=== PATIENT | female | born 1985 | race Caucasian/White ===

== ENCOUNTER 2016-10-11 14:01 | Inpatient (IN) | payer MEDICAID, OTHER ==
[~2016-10-11] VITALS: Ht 162.6 cm; Wt 93.0 kg
[~2016-10-11 14:01] MED LIST: DIVA500T35 PO; LEVE500T53 PO; LITH450CRT PO; OLAN5TAB2 PO; VENL-67 PO
[2016-10-11 16:13] LABS: BASOPHILS % (AUTO) 0.2 % (0.0-2.0); HEMOGLOBIN 12.8 g/dL (12.0-16.0); LYMPHOCYTES # (AUTO) 1.8 K/uL (1.0-4.8); LYMPHOCYTES % (AUTO) 18.4 % (22.0-44.0); MEAN CORPUSCULAR HEMOGLOBIN 30.8 pg (26.0-34.0); MEAN CORPUSCULAR HGB CONC 32.8 G/dL (31.0-37.0); MEAN CORPUSCULAR VOLUME 94 fL (80-100); MONOCYTES # (AUTO) 0.8 K/uL (0.1-1.0); MONOCYTES % (AUTO) 8.4 % (2.0-9.0); NEUTROPHILS # (AUTO) 7.1 K/uL (1.8-7.7); PLATELET COUNT (AUTO) 349 K/uL (150-450); RED BLOOD CELL COUNT(AUTO) 4.15 MIL/uL (4.00-5.20); RED CELL DISTRIBUTION WIDTH 12.9 % (11.5-14.5)
[2016-10-11 16:19] LABS: ANION GAP 10 mmol/L (8-16); CALCIUM, TOTAL 8.8 mg/dL (8.8-10.5); CARBON DIOXIDE 25 mmol/L (22-29); CHLORIDE 107 mmol/L (98-107); CREATININE 0.76 mg/dL (0.60-1.30); GLOMERULAR FILTR. RATE CALC > 60 mL/min (>60); POTASSIUM 3.9 mmol/L (3.5-5.1); SODIUM SERUM 142 mmol/L (136-145); UREA NITROGEN, BLOOD 10 mg/dL (7-18)
[2016-10-11 16:25] LABS: ALANINE AMINOTRANSFERASE 26 U/L (12-78); ALBUMIN 3.4 g/dL (3.4-5.0); ASPARTATE AMINOTRANSFERASE 10 U/L (15-37); BILIRUBIN,TOTAL 0.2 mg/dL (0.1-1.0); TOTAL PROTEIN, SERUM 7.4 g/dL (6.4-8.2)
[2016-10-11] MEDS ORDERED: OLANZapine 5 MG TABLET PO PRN (19:45)
[2016-10-11] MEDS ORDERED: ZOLPIDEM TARTRATE 10 MG TABLET PO PRN (19:45)
[2016-10-11 21:12] VITALS: BP 114/67
[2016-10-11] MEDS: DIVALPROEX SODIUM 500 MG DR TABLET PO SCH (22:01)
[2016-10-11] MEDS: LevETIRAcetam 500 MG TABLET PO SCH (22:01)
[2016-10-12 06:38] VITALS: BP 102/68
[2016-10-12] MEDS ORDERED: PETROLATUM,WHITE 71 GM JELLY TP PRN (08:15)
[2016-10-12] MEDS ORDERED: LOPERAMIDE HCL 2 MG CAPSULE PO PRN (08:15)
[2016-10-12] MEDS ORDERED: ACETAMINOPHEN 325 MG TABLET PO PRN (08:15)
[2016-10-12] MEDS ORDERED: MAGNESIUM HYDROXIDE SUSPENSION 30 ML UDCUP PO PRN (08:15)
[2016-10-12] MEDS ORDERED: BENZOCAINE/MENTHOL LOZENGE MM PRN (08:15)
[2016-10-12] MEDS ORDERED: MAG HYDROX/AL HYDROX/SIMETH ES 30 ML SUSPENSION UDCUP PO PRN (08:15)
[2016-10-12] MEDS ORDERED: ALBUTEROL SULFATE HFA 90 MCG/PUFF 8 GM INHALER IH PRN (08:15)
[2016-10-12] MEDS ORDERED: ONDANSETRON HCL 4 MG TABLET PO PRN (08:15)
[2016-10-12] MEDS ORDERED: CloNIDine HCL 0.1 MG TABLET PO PRN (08:15)
[2016-10-12] MEDS: VENLAFAXINE HCL 75 MG ER CAPSULE PO SCH (08:34)
[2016-10-12] MEDS: LevETIRAcetam 500 MG TABLET PO SCH ×2 (08:34→16:09)
[2016-10-12] MEDS: DIVALPROEX SODIUM 500 MG DR TABLET PO SCH ×2 (08:35→16:10)
[2016-10-12 08:40] VITALS: BP 100/68
[2016-10-12 09:43] VITALS: BP 106/73
[2016-10-12] MEDS: IBUPROFEN 600 MG TABLET PO PRN (09:43)
[2016-10-12] MEDS: LORazepam 2 MG TABLET PO PRN ×2 (10:53→15:35)
[2016-10-12] MEDS: MUPIROCIN CALCIUM 2% 15 GM CREAM TP SCH ×2 (12:52→16:10)
[2016-10-12 16:12] VITALS: BP 110/64
[2016-10-13 06:23] VITALS: BP 108/64
[2016-10-13 08:24] VITALS: BP 113/68
[2016-10-13] MEDS: MUPIROCIN CALCIUM 2% 15 GM CREAM TP SCH ×2 (08:45→16:51)
[2016-10-13] MEDS: LevETIRAcetam 500 MG TABLET PO SCH ×2 (08:45→16:41)
[2016-10-13] MEDS: DIVALPROEX SODIUM 500 MG DR TABLET PO SCH ×2 (08:45→16:41)
[2016-10-13] MEDS: VENLAFAXINE HCL 75 MG ER CAPSULE PO SCH (08:45)
[2016-10-13] MEDS: LORazepam 2 MG TABLET PO PRN (09:58)
[2016-10-13 16:14] VITALS: BP 100/68
[2016-10-13 16:40] VITALS: BP 112/70
[2016-10-13 18:29] VITALS: BP 116/75
[2016-10-13] MEDS: IBUPROFEN 600 MG TABLET PO PRN (18:31)
[2016-10-14 06:19] VITALS: BP 101/61
[2016-10-14] MEDS: DIVALPROEX SODIUM 500 MG DR TABLET PO SCH (08:30)
[2016-10-14] MEDS: MUPIROCIN CALCIUM 2% 15 GM CREAM TP SCH (08:30)
[2016-10-14] MEDS: LevETIRAcetam 500 MG TABLET PO SCH (08:30)
[2016-10-14] MEDS: VENLAFAXINE HCL 75 MG ER CAPSULE PO SCH (08:30)
[2016-10-14 08:38] VITALS: BP 103/64
[2016-10-14] MEDS ORDERED: MUPI15CR TP (10:43)
[2016-12-11] MEDS ORDERED: VENL-67 PO (19:50)
[2016-12-11] MEDS ORDERED: ARIP10TA14 PO (19:50)
== END 2016-10-14 13:32 | disposition home or self-care (01) | DRG 750 ==
LOC: EMS 14:03 → EEVIPCON 14:03 → B2S 19:54 → B3A 10-12 16:36
PROVIDERS: ADMIT Psychiatry & Neurology Child & Adolescent Psychiatry; ATTEND Psychiatry & Neurology Child & Adolescent Psychiatry
DX: F25.9 Schizoaffective disorder, unspecified (principal); G40.909 Epilepsy, unspecified, not intractable, without status epilepticus; R45.851 Suicidal ideations; E66.9 Obesity, unspecified; S51.811A Laceration without foreign body of right forearm, initial encounter; K59.00 Constipation, unspecified; F41.9 Anxiety disorder, unspecified; G47.00 Insomnia, unspecified; S61.519A Laceration without foreign body of unspecified wrist, initial encounter; X58.XXXA Exposure to other specified factors, initial encounter; S60.812A Abrasion of left wrist, initial encounter; Z98.51 Tubal ligation status; Z88.0 Allergy status to penicillin; Z68.35 Body mass index [BMI] 35.0-35.9, adult; Z79.899 Other long term (current) drug therapy; Y93.89 Activity, other specified; Y92.89 Other specified places as the place of occurrence of the external cause; Y99.8 Other external cause status
CPT/HCPCS: 99285; G0480

== ENCOUNTER 2016-10-18 08:35 | Inpatient (IN) | payer MEDICAID, OTHER ==
[~2016-10-18] VITALS: Ht 162.6 cm; Wt 92.8 kg
[~2016-10-18 08:35] MED LIST changes: -LITH450CRT PO; +MUPI15CR TP; -OLAN5TAB2 PO
[2016-10-18 09:12] LABS: BASOPHILS % (AUTO) 0.3 % (0.0-2.0); EOSINOPHILS % (AUTO) 2.8 % (1.0-6.0); HEMATOCRIT 39.1 % (36-46); HEMOGLOBIN 12.8 g/dL (12.0-16.0); LYMPHOCYTES # (AUTO) 1.2 K/uL (1.0-4.8); MEAN CORPUSCULAR HEMOGLOBIN 30.4 pg (26.0-34.0); MEAN CORPUSCULAR HGB CONC 32.7 G/dL (31.0-37.0); MEAN CORPUSCULAR VOLUME 93 fL (80-100); MONOCYTES # (AUTO) 0.7 K/uL (0.1-1.0); MONOCYTES % (AUTO) 12.3 % (2.0-9.0); NEUTROPHILS # (AUTO) 3.9 K/uL (1.8-7.7); NEUTROPHILS % (AUTO) 64.6 % (40.0-70.0); PLATELET COUNT (AUTO) 336 K/uL (150-450); RED CELL DISTRIBUTION WIDTH 12.5 % (11.5-14.5)
[2016-10-18] MEDS ORDERED: ZOLPIDEM TARTRATE 10 MG TABLET PO PRN (09:15)
[2016-10-18 09:19] LABS: ANION GAP 11 mmol/L (8-16); CARBON DIOXIDE 25 mmol/L (22-29); CHLORIDE 108 mmol/L (98-107); GLOMERULAR FILTR. RATE CALC > 60 mL/min (>60); POTASSIUM 3.9 mmol/L (3.5-5.1); SODIUM SERUM 144 mmol/L (136-145); UREA NITROGEN, BLOOD 11 mg/dL (7-18)
[2016-10-18 09:22] LABS: ALANINE AMINOTRANSFERASE 98 U/L (12-78); ALBUMIN 3.3 g/dL (3.4-5.0); ASPARTATE AMINOTRANSFERASE 39 U/L (15-37); BILIRUBIN,TOTAL 0.2 mg/dL (0.1-1.0); TOTAL PROTEIN, SERUM 7.1 g/dL (6.4-8.2); VALPROIC ACID 30 mcg/mL (50-100)
[2016-10-18 11:20] VITALS: BP 103/61
[2016-10-18] MEDS ORDERED: IBUPROFEN 600 MG TABLET PO PRN (12:15)
[2016-10-18] MEDS ORDERED: ACETAMINOPHEN 325 MG TABLET PO PRN (12:15)
[2016-10-18 12:40] VITALS: BP 110/72
[2016-10-18] MEDS: LORazepam 2 MG TABLET PO PRN (16:03)
[2016-10-18] MEDS: LevETIRAcetam 500 MG TABLET PO SCH (16:03)
[2016-10-18 16:26] VITALS: BP 122/80
[2016-10-18] MEDS: HALOPERIDOL 5 MG TABLET PO PRN (16:32)
[2016-10-18] MEDS: BACITRACIN 28.4 GM OINTMENT TP SCH (17:21)
[2016-10-19] MEDS ORDERED: MAG HYDROX/AL HYDROX/SIMETH ES 30 ML SUSPENSION UDCUP PO PRN (07:45)
[2016-10-19] MEDS ORDERED: CloNIDine HCL 0.1 MG TABLET PO PRN (07:45)
[2016-10-19] MEDS ORDERED: LOPERAMIDE HCL 2 MG CAPSULE PO PRN (07:45)
[2016-10-19] MEDS ORDERED: PETROLATUM,WHITE 71 GM JELLY TP PRN (07:45)
[2016-10-19] MEDS ORDERED: MAGNESIUM HYDROXIDE SUSPENSION 30 ML UDCUP PO PRN (07:45)
[2016-10-19] MEDS ORDERED: BENZOCAINE/MENTHOL LOZENGE MM PRN (07:45)
[2016-10-19] MEDS ORDERED: ALBUTEROL SULFATE HFA 90 MCG/PUFF 8 GM INHALER IH PRN (07:45)
[2016-10-19] MEDS ORDERED: ONDANSETRON HCL 4 MG TABLET PO PRN (07:45)
[2016-10-19 08:11] LABS: ADD UA MICROSCOPIC NO; APPEARANCE,URINE CLEAR (CLEAR); GLUCOSE, URINE (UA) NEGATIVE (NEGATIVE); KETONES,URINE NEGATIVE (NEGATIVE); LEUKOCYTE ESTERASE ,URINE NEGATIVE (NEGATIVE); OCCULT BLOOD,URINE NEGATIVE (NEGATIVE); PH,URINE 7.5 (5.0-8.0); PROTEIN,URINE NEGATIVE (NEGATIVE)
[2016-10-19 08:35] VITALS: BP 118/69
[2016-10-19] MEDS: LevETIRAcetam 500 MG TABLET PO SCH ×2 (09:44→16:31)
[2016-10-19] MEDS: BACITRACIN 28.4 GM OINTMENT TP SCH ×2 (09:44→16:45)
[2016-10-19] MEDS: HALOPERIDOL 5 MG TABLET PO PRN (09:44)
[2016-10-19] MEDS: LORazepam 2 MG TABLET PO PRN ×2 (10:45→16:31)
[2016-10-19] MEDS: VENLAFAXINE HCL 75 MG ER CAPSULE PO SCH (12:01)
[2016-10-19 16:36] VITALS: BP 113/64
[2016-10-20 03:43] VITALS: BP 110/61
[2016-10-20 08:09] VITALS: BP 116/62
[2016-10-20 08:15] LABS: THYROID STIMULATING HORMONE 0.57 uIU/mL (0.36-3.74)
[2016-10-20] MEDS: VENLAFAXINE HCL 75 MG ER CAPSULE PO SCH (09:36)
[2016-10-20] MEDS: LevETIRAcetam 500 MG TABLET PO SCH ×2 (09:36→16:18)
[2016-10-20] MEDS: ARIPiprazole 5 MG TABLET PO SCH (09:37)
[2016-10-20] MEDS: BACITRACIN 28.4 GM OINTMENT TP SCH ×2 (09:37→16:19)
[2016-10-20] MEDS: HALOPERIDOL 5 MG TABLET PO PRN (11:37)
[2016-10-20] MEDS: LORazepam 2 MG TABLET PO PRN ×2 (11:37→16:18)
[2016-10-20 16:13] VITALS: BP 102/69
[2016-10-21 08:19] VITALS: BP 106/74
[2016-10-21] MEDS: ARIPiprazole 5 MG TABLET PO SCH (08:21)
[2016-10-21] MEDS: VENLAFAXINE HCL 75 MG ER CAPSULE PO SCH (08:21)
[2016-10-21] MEDS: LevETIRAcetam 500 MG TABLET PO SCH ×2 (08:21→16:08)
[2016-10-21] MEDS: BACITRACIN 28.4 GM OINTMENT TP SCH ×2 (08:22→16:09)
[2016-10-21 16:00] VITALS: BP 112/64
[2016-10-22] MEDS: ARIPiprazole 5 MG TABLET PO SCH (08:08)
[2016-10-22] MEDS: BACITRACIN 28.4 GM OINTMENT TP SCH ×2 (08:08→16:02)
[2016-10-22] MEDS: VENLAFAXINE HCL 75 MG ER CAPSULE PO SCH (08:08)
[2016-10-22] MEDS: LevETIRAcetam 500 MG TABLET PO SCH ×2 (08:08→16:02)
[2016-10-22 08:52] VITALS: BP 108/70
[2016-10-22] MEDS: HALOPERIDOL 5 MG TABLET PO PRN (09:49)
[2016-10-22] MEDS: LORazepam 2 MG TABLET PO PRN (09:50)
[2016-10-22 16:02] VITALS: BP 93/56
[2016-10-22 16:10] VITALS: BP 107/66
[2016-10-22 19:08] VITALS: BP 100/59
[2016-10-23 01:54] VITALS: BP 113/62
[2016-10-23 05:07] LABS: HEPATITIS Bs ANTIGEN SCREEN P Negative (Negative); HEPATITIS C AB SCREEN <0.1 s/co ratio (0.0-0.9)
[2016-10-23 08:25] VITALS: BP 118/69
[2016-10-23] MEDS: LevETIRAcetam 500 MG TABLET PO SCH (08:33)
[2016-10-23] MEDS: BACITRACIN 28.4 GM OINTMENT TP SCH (08:33)
[2016-10-23] MEDS: ARIPiprazole 5 MG TABLET PO SCH (08:33)
[2016-10-23] MEDS: LORazepam 2 MG TABLET PO PRN (08:34)
[2016-10-23] MEDS: HALOPERIDOL 5 MG TABLET PO PRN (08:34)
[2016-10-23] MEDS ORDERED: VENLAFAXINE HCL 150 MG ER CAPSULE PO SCH (09:00)
[2016-10-23] MEDS ORDERED: ARIP5TAB9 PO (11:29)
[2016-12-11] MEDS ORDERED: VENL-67 PO (19:50)
[2016-12-11] MEDS ORDERED: ARIP10TA14 PO (19:50)
== END 2016-10-23 12:05 | disposition home or self-care (01) | DRG 751 ==
LOC: EMS 08:36 → EEVIPCON 08:36 → B3A 10:11
PROVIDERS: ADMIT Psychiatry & Neurology Child & Adolescent Psychiatry; ATTEND Psychiatry & Neurology Child & Adolescent Psychiatry
PROC: [UNRECOGNIZED PROCEDURE] (principal; 2016-10-20)
DX: F33.3 Major depressive disorder, recurrent, severe with psychotic symptoms (principal); R45.851 Suicidal ideations; F25.9 Schizoaffective disorder, unspecified; G40.909 Epilepsy, unspecified, not intractable, without status epilepticus; F41.9 Anxiety disorder, unspecified; S61.511A Laceration without foreign body of right wrist, initial encounter; F60.3 Borderline personality disorder; E66.9 Obesity, unspecified; G47.00 Insomnia, unspecified; R74.0 Nonspecific elevation of levels of transaminase and lactic acid dehydrogenase [LDH]; K76.9 Liver disease, unspecified; Z88.0 Allergy status to penicillin; Z79.899 Other long term (current) drug therapy; Z98.51 Tubal ligation status; Z98.890 Other specified postprocedural states; Z68.35 Body mass index [BMI] 35.0-35.9, adult; Z62.819 Personal history of unspecified abuse in childhood; Z81.8 Family history of other mental and behavioral disorders; X78.0XXA Intentional self-harm by sharp glass, initial encounter; Y93.89 Activity, other specified; Y92.89 Other specified places as the place of occurrence of the external cause; Y99.8 Other external cause status
CPT/HCPCS: 80074; 82306; 84443; 87081; 99285; G0480

== ENCOUNTER 2016-11-21 21:38 | Inpatient (IN) | payer MEDICAID, OTHER ==
[~2016-11-21] VITALS: Ht 162.6 cm; Wt 87.1 kg
[~2016-11-21 21:38] MED LIST changes: +ARIP5TAB9 PO; -DIVA500T35 PO; -MUPI15CR TP
[2016-11-21 22:00] LABS: BASOPHILS % (AUTO) 0.3 % (0.0-2.0); EOSINOPHILS % (AUTO) 4.1 % (1.0-6.0); HEMATOCRIT 41.1 % (36-46); HEMOGLOBIN 13.8 g/dL (12.0-16.0); LYMPHOCYTES # (AUTO) 2.5 K/uL (1.0-4.8); LYMPHOCYTES % (AUTO) 32.8 % (22.0-44.0); MEAN CORPUSCULAR HEMOGLOBIN 30.9 pg (26.0-34.0); MEAN CORPUSCULAR HGB CONC 33.6 G/dL (31.0-37.0); MEAN CORPUSCULAR VOLUME 92 fL (80-100); MONOCYTES # (AUTO) 0.7 K/uL (0.1-1.0); MONOCYTES % (AUTO) 9.3 % (2.0-9.0); NEUTROPHILS # (AUTO) 4.1 K/uL (1.8-7.7); NEUTROPHILS % (AUTO) 53.5 % (40.0-70.0); PLATELET COUNT (AUTO) 427 K/uL (150-450); RED BLOOD CELL COUNT(AUTO) 4.46 MIL/uL (4.00-5.20); RED CELL DISTRIBUTION WIDTH 12.1 % (11.5-14.5); WHITE BLOOD COUNT (AUTO) 7.7 K/uL (4.5-11.0)
[2016-11-21 22:16] LABS: ANION GAP 8 mmol/L (8-16); CALCIUM, TOTAL 8.9 mg/dL (8.8-10.5); CARBON DIOXIDE 26 mmol/L (22-29); CHLORIDE 104 mmol/L (98-107); CREATININE 0.93 mg/dL (0.60-1.30); GLOMERULAR FILTR. RATE CALC > 60 mL/min (>60); POTASSIUM 3.7 mmol/L (3.5-5.1); SODIUM SERUM 138 mmol/L (136-145); UREA NITROGEN, BLOOD 10 mg/dL (7-18)
[2016-11-21 22:21] LABS: ALANINE AMINOTRANSFERASE 91 U/L (12-78); ALBUMIN 3.9 g/dL (3.4-5.0); ASPARTATE AMINOTRANSFERASE 31 U/L (15-37); BILIRUBIN,TOTAL 0.2 mg/dL (0.1-1.0); TOTAL PROTEIN, SERUM 7.8 g/dL (6.4-8.2)
[2016-11-21] MEDS ORDERED: ZOLPIDEM TARTRATE 10 MG TABLET PO PRN (22:30)
[2016-11-21] MEDS ORDERED: HALOPERIDOL 5 MG TABLET PO ONE (22:30)
[2016-11-21] MEDS ORDERED: HALOPERIDOL 5 MG TABLET PO PRN (22:30)
[2016-11-21] MEDS ORDERED: LORazepam 2 MG TABLET PO ONE (22:30)
[2016-11-21 22:33] LABS: APPEARANCE,URINE CLEAR (CLEAR); GLUCOSE, URINE (UA) NEGATIVE (NEGATIVE); KETONES,URINE NEGATIVE (NEGATIVE); LEUKOCYTE ESTERASE ,URINE NEGATIVE (NEGATIVE); PROTEIN,URINE NEGATIVE (NEGATIVE)
[2016-11-21 22:36] LABS: ADD UA MICROSCOPIC YES; OCCULT BLOOD,URINE TRACE (NEGATIVE); SQUAMOUS EPITHELIAL CELL,UR Moderate /LPF (None Seen); WBC,URINE 0-2 /HPF (0-5)
[2016-11-22 06:59] LABS: CHOL/HDL RATIO 3.7 (3.9-5.7)
[2016-11-22] MEDS ORDERED: MAG HYDROX/AL HYDROX/SIMETH ES 30 ML SUSPENSION UDCUP PO PRN (09:00)
[2016-11-22] MEDS ORDERED: PETROLATUM,WHITE 71 GM JELLY TP PRN (09:00)
[2016-11-22] MEDS ORDERED: LOPERAMIDE HCL 2 MG CAPSULE PO PRN (09:00)
[2016-11-22] MEDS ORDERED: BENZOCAINE/MENTHOL LOZENGE [8 LOZENGES/PACKET] MM PRN (09:00)
[2016-11-22] MEDS ORDERED: IBUPROFEN 600 MG TABLET PO PRN (09:00)
[2016-11-22] MEDS ORDERED: CloNIDine HCL 0.1 MG TABLET PO PRN (09:00)
[2016-11-22] MEDS ORDERED: ACETAMINOPHEN 325 MG TABLET PO PRN (09:00)
[2016-11-22] MEDS ORDERED: ALBUTEROL SULFATE HFA 90 MCG/PUFF 8 GM INHALER IH PRN (09:00)
[2016-11-22] MEDS ORDERED: ONDANSETRON HCL 4 MG TABLET PO PRN (09:00)
[2016-11-22] MEDS ORDERED: MAGNESIUM HYDROXIDE SUSPENSION 30 ML UDCUP PO PRN (09:00)
[2016-11-22] MEDS ORDERED: BACITRACIN 28.4 GM OINTMENT TP PRN (09:00)
[2016-11-22] MEDS: CHOLECALCIFEROL (VIT D3) 1,000 UNITS TABLET PO SCH (09:46)
[2016-11-22] MEDS: LevETIRAcetam 500 MG TABLET PO SCH ×2 (09:47→16:23)
[2016-11-22 09:58] VITALS: BP 120/70
[2016-11-22 16:37] VITALS: BP 97/61
[2016-11-23] MEDS: LevETIRAcetam 500 MG TABLET PO SCH ×2 (09:06→17:12)
[2016-11-23] MEDS: ARIPiprazole 5 MG TABLET PO SCH (09:06)
[2016-11-23] MEDS: CHOLECALCIFEROL (VIT D3) 1,000 UNITS TABLET PO SCH (09:06)
[2016-11-23] MEDS: VENLAFAXINE HCL 150 MG ER CAPSULE PO SCH (09:06)
[2016-11-23 09:41] VITALS: BP 106/61
[2016-11-23 19:55] VITALS: BP 109/66
[2016-11-24 08:00] VITALS: BP 125/74
[2016-11-24] MEDS: LevETIRAcetam 500 MG TABLET PO SCH ×2 (08:28→16:22)
[2016-11-24] MEDS: CHOLECALCIFEROL (VIT D3) 1,000 UNITS TABLET PO SCH (08:28)
[2016-11-24] MEDS: VENLAFAXINE HCL 150 MG ER CAPSULE PO SCH (08:29)
[2016-11-24] MEDS: ARIPiprazole 5 MG TABLET PO SCH (08:29)
[2016-11-24] MEDS: LORazepam 2 MG TABLET PO PRN (16:22)
[2016-11-24 19:13] VITALS: BP 106/67
[2016-11-25 08:00] VITALS: BP 120/68
[2016-11-25] MEDS: LevETIRAcetam 500 MG TABLET PO SCH ×2 (08:57→16:52)
[2016-11-25] MEDS: ARIPiprazole 5 MG TABLET PO SCH (08:58)
[2016-11-25] MEDS: VENLAFAXINE HCL 150 MG ER CAPSULE PO SCH (08:58)
[2016-11-25] MEDS: CHOLECALCIFEROL (VIT D3) 1,000 UNITS TABLET PO SCH (08:58)
[2016-11-25] MEDS: LORazepam 2 MG TABLET PO PRN (16:52)
[2016-11-25 16:59] VITALS: BP 103/60
[2016-11-26 08:00] VITALS: BP 109/69
[2016-11-26] MEDS: VENLAFAXINE HCL 150 MG ER CAPSULE PO SCH (09:06)
[2016-11-26] MEDS: LevETIRAcetam 500 MG TABLET PO SCH (09:06)
[2016-11-26] MEDS: CHOLECALCIFEROL (VIT D3) 1,000 UNITS TABLET PO SCH (09:06)
[2016-11-26] MEDS: ARIPiprazole 5 MG TABLET PO SCH (09:06)
[2016-11-26] MEDS ORDERED: VITAD1000 PO (09:41)
[2016-12-11] MEDS ORDERED: ARIP10TA14 PO (19:50)
[2016-12-11] MEDS ORDERED: VENL-67 PO (19:50)
== END 2016-11-26 13:45 | disposition home or self-care (01) | DRG 750 ==
LOC: EMS 21:40 → 3EI 11-22 00:04
PROVIDERS: ADMIT Psychiatry & Neurology Child & Adolescent Psychiatry; ATTEND Psychiatry & Neurology Child & Adolescent Psychiatry
DX: F25.1 Schizoaffective disorder, depressive type (principal); R56.9 Unspecified convulsions; R45.851 Suicidal ideations; Z88.0 Allergy status to penicillin; E55.9 Vitamin D deficiency, unspecified; G47.00 Insomnia, unspecified; E66.9 Obesity, unspecified; K59.00 Constipation, unspecified; F12.90 Cannabis use, unspecified, uncomplicated; Z68.33 Body mass index [BMI] 33.0-33.9, adult
CPT/HCPCS: 87081; 99285; G0480; Q0162

== ENCOUNTER 2016-12-06 13:35 | Inpatient (IN) | payer MEDICAID, OTHER ==
[~2016-12-06] VITALS: Ht 160 cm; Wt 87.8 kg
[~2016-12-06 13:35] MED LIST changes: +VITAD1000 PO
[2016-12-06 14:38] LABS: BASOPHILS % (AUTO) 0.4 % (0.0-2.0); EOSINOPHILS % (AUTO) 4.1 % (1.0-6.0); HEMATOCRIT 39.1 % (36-46); HEMOGLOBIN 13.5 g/dL (12.0-16.0); LYMPHOCYTES # (AUTO) 1.4 K/uL (1.0-4.8); MEAN CORPUSCULAR HEMOGLOBIN 31.3 pg (26.0-34.0); MEAN CORPUSCULAR HGB CONC 34.4 G/dL (31.0-37.0); MEAN CORPUSCULAR VOLUME 91 fL (80-100); MONOCYTES # (AUTO) 0.6 K/uL (0.1-1.0); MONOCYTES % (AUTO) 8.5 % (2.0-9.0); NEUTROPHILS # (AUTO) 4.5 K/uL (1.8-7.7); PLATELET COUNT (AUTO) 348 K/uL (150-450); RED CELL DISTRIBUTION WIDTH 11.9 % (11.5-14.5); WHITE BLOOD COUNT (AUTO) 6.8 K/uL (4.5-11.0)
[2016-12-06 14:39] LABS: ANION GAP 7 mmol/L (8-16); CALCIUM, TOTAL 8.7 mg/dL (8.8-10.5); CARBON DIOXIDE 25 mmol/L (22-29); CHLORIDE 108 mmol/L (98-107); GLOMERULAR FILTR. RATE CALC > 60 mL/min (>60); POTASSIUM 3.6 mmol/L (3.5-5.1); SODIUM SERUM 140 mmol/L (136-145); UREA NITROGEN, BLOOD 8 mg/dL (7-18)
[2016-12-06 14:44] LABS: ALANINE AMINOTRANSFERASE 164 U/L (12-78); ALBUMIN 3.6 g/dL (3.4-5.0); ASPARTATE AMINOTRANSFERASE 39 U/L (15-37); BILIRUBIN,TOTAL 0.3 mg/dL (0.1-1.0)
[2016-12-06] MEDS ORDERED: LORazepam 2 MG TABLET PO ONE (16:30)
[2016-12-06] MEDS ORDERED: ZOLPIDEM TARTRATE 10 MG TABLET PO PRN (16:45)
[2016-12-06] MEDS: HALOPERIDOL 5 MG TABLET PO PRN (18:42)
[2016-12-06] MEDS: LevETIRAcetam 500 MG TABLET PO SCH (18:42)
[2016-12-06 18:47] VITALS: BP 118/61
[2016-12-06] MEDS: LORazepam 2 MG TABLET PO PRN (20:30)
[2016-12-07 06:35] LABS: CHOL/HDL RATIO 4.3 (3.9-5.7)
[2016-12-07 08:00] VITALS: BP 111/60
[2016-12-07] MEDS: ARIPiprazole 10 MG TABLET PO SCH (09:57)
[2016-12-07] MEDS: VENLAFAXINE HCL 75 MG ER CAPSULE PO SCH (09:57)
[2016-12-07] MEDS: LevETIRAcetam 500 MG TABLET PO SCH ×2 (09:57→16:53)
[2016-12-07] MEDS: LORazepam 2 MG TABLET PO PRN (10:29)
[2016-12-07] MEDS ORDERED: MAG HYDROX/AL HYDROX/SIMETH ES 30 ML SUSPENSION UDCUP PO PRN (14:30)
[2016-12-07] MEDS ORDERED: CloNIDine HCL 0.1 MG TABLET PO PRN (14:30)
[2016-12-07] MEDS ORDERED: ALBUTEROL SULFATE HFA 90 MCG/PUFF 8 GM INHALER IH PRN (14:30)
[2016-12-07] MEDS ORDERED: IBUPROFEN 600 MG TABLET PO PRN (14:30)
[2016-12-07] MEDS ORDERED: LOPERAMIDE HCL 2 MG CAPSULE PO PRN (14:30)
[2016-12-07] MEDS ORDERED: PETROLATUM,WHITE 71 GM JELLY TP PRN (14:30)
[2016-12-07] MEDS ORDERED: BENZOCAINE/MENTHOL LOZENGE [8 LOZENGES/PACKET] MM PRN (14:30)
[2016-12-07] MEDS ORDERED: ONDANSETRON HCL 4 MG TABLET PO PRN (14:30)
[2016-12-07] MEDS ORDERED: MAGNESIUM HYDROXIDE SUSPENSION 30 ML UDCUP PO PRN (14:30)
[2016-12-07] MEDS ORDERED: BACITRACIN 28.4 GM OINTMENT TP PRN (14:30)
[2016-12-07] MEDS ORDERED: ACETAMINOPHEN 325 MG TABLET PO PRN (14:30)
[2016-12-07] MEDS ORDERED: VENL-68 PO (14:46)
[2016-12-07 17:46] VITALS: BP 112/71
[2016-12-08 03:50] VITALS: BP 100/68
[2016-12-08 08:00] VITALS: BP 115/70
[2016-12-08] MEDS: ARIPiprazole 10 MG TABLET PO SCH (08:41)
[2016-12-08] MEDS: LevETIRAcetam 500 MG TABLET PO SCH ×2 (08:41→17:31)
[2016-12-08] MEDS: VENLAFAXINE HCL 75 MG ER CAPSULE PO SCH (08:41)
[2016-12-08] MEDS: HALOPERIDOL 5 MG TABLET PO PRN ×2 (08:41→17:32)
[2016-12-08] MEDS: CHOLECALCIFEROL (VIT D3) 1,000 UNITS TABLET PO SCH (08:41)
[2016-12-08 16:21] VITALS: BP 108/61
[2016-12-08] MEDS: LORazepam 2 MG TABLET PO PRN (17:31)
[2016-12-09 08:46] VITALS: BP 118/82
[2016-12-09] MEDS: CHOLECALCIFEROL (VIT D3) 1,000 UNITS TABLET PO SCH (09:19)
[2016-12-09] MEDS: ARIPiprazole 10 MG TABLET PO SCH (09:19)
[2016-12-09] MEDS: VENLAFAXINE HCL 75 MG ER CAPSULE PO SCH (09:19)
[2016-12-09] MEDS: LevETIRAcetam 500 MG TABLET PO SCH ×2 (09:19→17:36)
[2016-12-09] MEDS: HALOPERIDOL 5 MG TABLET PO PRN ×2 (12:45→17:36)
[2016-12-09 16:43] VITALS: BP 99/60
[2016-12-09] MEDS: LORazepam 2 MG TABLET PO PRN (17:36)
[2016-12-10 09:34] VITALS: BP 112/68
[2016-12-10] MEDS: ARIPiprazole 10 MG TABLET PO SCH (11:36)
[2016-12-10] MEDS: LevETIRAcetam 500 MG TABLET PO SCH (11:37)
[2016-12-10] MEDS: CHOLECALCIFEROL (VIT D3) 1,000 UNITS TABLET PO SCH (11:37)
[2016-12-10] MEDS: VENLAFAXINE HCL 75 MG ER CAPSULE PO SCH (11:37)
[2016-12-11] MEDS ORDERED: VENL-67 PO (19:50)
[2016-12-11] MEDS ORDERED: ARIP10TA14 PO (19:50)
== END 2016-12-10 11:50 | disposition home or self-care (01) | DRG 750 ==
LOC: EMS 13:38 → EEVIPCON 13:38 → 3EI 17:13
PROVIDERS: ADMIT Psychiatry & Neurology Psychiatry; ATTEND Psychiatry & Neurology Psychiatry
DX: F25.1 Schizoaffective disorder, depressive type (principal); E55.9 Vitamin D deficiency, unspecified; R45.851 Suicidal ideations; E66.9 Obesity, unspecified; F12.90 Cannabis use, unspecified, uncomplicated; F22 Delusional disorders; F41.9 Anxiety disorder, unspecified; S61.511A Laceration without foreign body of right wrist, initial encounter; Z62.819 Personal history of unspecified abuse in childhood; G40.909 Epilepsy, unspecified, not intractable, without status epilepticus; G47.00 Insomnia, unspecified; F60.3 Borderline personality disorder; K59.00 Constipation, unspecified; X78.8XXA Intentional self-harm by other sharp object, initial encounter; Z79.899 Other long term (current) drug therapy; Z98.890 Other specified postprocedural states; Y93.89 Activity, other specified; Y92.89 Other specified places as the place of occurrence of the external cause; Y99.8 Other external cause status; Z98.51 Tubal ligation status; Z88.0 Allergy status to penicillin; Z71.51 Drug abuse counseling and surveillance of drug abuser; Z63.8 Other specified problems related to primary support group; Z68.34 Body mass index [BMI] 34.0-34.9, adult
CPT/HCPCS: 87081; 99285; G0480

== ENCOUNTER 2016-12-24 15:40 | Emergency (ER) | payer MEDICAID, OTHER ==
[~2016-12-24] VITALS: Ht 162.6 cm; Wt 88.0 kg
[~2016-12-24 15:40] MED LIST changes: +ARIP10TA14 PO; -ARIP5TAB9 PO; -VITAD1000 PO
[2016-12-24] MEDS ORDERED: ARIP15TA3 PO (17:24)
[2016-12-24] MEDS ORDERED: LORazepam 1 MG TABLET PO ONE (17:30)
[2016-12-24 17:47] LABS: BASOPHILS % (AUTO) 0.3 % (0.0-2.0); EOSINOPHILS % (AUTO) 4.5 % (1.0-6.0); HEMATOCRIT 37.3 % (36-46); HEMOGLOBIN 12.8 g/dL (12.0-16.0); LYMPHOCYTES % (AUTO) 27.1 % (22.0-44.0); MEAN CORPUSCULAR HEMOGLOBIN 30.9 pg (26.0-34.0); MEAN CORPUSCULAR HGB CONC 34.4 G/dL (31.0-37.0); MEAN CORPUSCULAR VOLUME 90 fL (80-100); MONOCYTES # (AUTO) 0.8 K/uL (0.1-1.0); MONOCYTES % (AUTO) 10.6 % (2.0-9.0); NEUTROPHILS # (AUTO) 4.1 K/uL (1.8-7.7); NEUTROPHILS % (AUTO) 57.5 % (40.0-70.0); PLATELET COUNT (AUTO) 384 K/uL (150-450); RED BLOOD CELL COUNT(AUTO) 4.16 MIL/uL (4.00-5.20); RED CELL DISTRIBUTION WIDTH 12.1 % (11.5-14.5); WHITE BLOOD COUNT (AUTO) 7.2 K/uL (4.5-11.0)
[2016-12-24 17:48] LABS: ANION GAP 9 mmol/L (8-16); CALCIUM, TOTAL 8.5 mg/dL (8.8-10.5); CARBON DIOXIDE 25 mmol/L (22-29); CHLORIDE 109 mmol/L (98-107); CREATININE 0.82 mg/dL (0.60-1.30); GLOMERULAR FILTR. RATE CALC > 60 mL/min (>60); POTASSIUM 3.8 mmol/L (3.5-5.1); SODIUM SERUM 143 mmol/L (136-145); UREA NITROGEN, BLOOD 9 mg/dL (7-18)
[2016-12-24 17:54] LABS: ALANINE AMINOTRANSFERASE 268 U/L (12-78); ALBUMIN 3.3 g/dL (3.4-5.0); ASPARTATE AMINOTRANSFERASE 86 U/L (15-37); BILIRUBIN,TOTAL 0.2 mg/dL (0.1-1.0); TOTAL PROTEIN, SERUM 6.6 g/dL (6.4-8.2)
[2016-12-24 22:19] VITALS: BP 115/68
[2016-12-25] MEDS ORDERED: OLAN7.5T2 PO (17:42)
== END 2016-12-24 22:32 | disposition home or self-care (01) ==
LOC: EMS 15:41
DX: R45.851 Suicidal ideations (principal); F31.9 Bipolar disorder, unspecified; F25.9 Schizoaffective disorder, unspecified; Z79.899 Other long term (current) drug therapy; Z88.0 Allergy status to penicillin
CPT/HCPCS: 99284

== ENCOUNTER 2016-12-25 17:29 | Emergency (ER) | payer OTHER ==
[~2016-12-25] VITALS: Ht 162.6 cm; Wt 87.3 kg
[~2016-12-25 17:29] MED LIST changes: -ARIP10TA14 PO; +ARIP15TA3 PO
[2016-12-25] MEDS ORDERED: OLAN7.5T2 PO (17:42)
[2016-12-25 18:05] LABS: BASOPHILS % (AUTO) 0.1 % (0.0-2.0); EOSINOPHILS % (AUTO) 3.7 % (1.0-6.0); HEMATOCRIT 38.7 % (36-46); HEMOGLOBIN 13.2 g/dL (12.0-16.0); LYMPHOCYTES # (AUTO) 1.8 K/uL (1.0-4.8); LYMPHOCYTES % (AUTO) 24.6 % (22.0-44.0); MEAN CORPUSCULAR HEMOGLOBIN 30.7 pg (26.0-34.0); MEAN CORPUSCULAR HGB CONC 34.1 G/dL (31.0-37.0); MEAN CORPUSCULAR VOLUME 90 fL (80-100); MONOCYTES # (AUTO) 0.8 K/uL (0.1-1.0); MONOCYTES % (AUTO) 10.5 % (2.0-9.0); NEUTROPHILS # (AUTO) 4.5 K/uL (1.8-7.7); NEUTROPHILS % (AUTO) 61.1 % (40.0-70.0); PLATELET COUNT (AUTO) 415 K/uL (150-450); RED CELL DISTRIBUTION WIDTH 12.1 % (11.5-14.5); WHITE BLOOD COUNT (AUTO) 7.4 K/uL (4.5-11.0)
[2016-12-25 18:18] LABS: SALICYLATE < 2.8 mg/dL (2.8-20.0)
[2016-12-25 18:22] LABS: ANION GAP 9 mmol/L (8-16); CALCIUM, TOTAL 8.9 mg/dL (8.8-10.5); CARBON DIOXIDE 24 mmol/L (22-29); CHLORIDE 109 mmol/L (98-107); CREATININE 0.83 mg/dL (0.60-1.30); GLOMERULAR FILTR. RATE CALC > 60 mL/min (>60); POTASSIUM 3.8 mmol/L (3.5-5.1); SODIUM SERUM 142 mmol/L (136-145); UREA NITROGEN, BLOOD 7 mg/dL (7-18)
[2016-12-25 18:26] LABS: ALANINE AMINOTRANSFERASE 252 U/L (12-78); ALBUMIN 3.3 g/dL (3.4-5.0); ASPARTATE AMINOTRANSFERASE 79 U/L (15-37); BILIRUBIN,TOTAL 0.2 mg/dL (0.1-1.0); TOTAL PROTEIN, SERUM 6.9 g/dL (6.4-8.2)
[2016-12-25 18:27] LABS: ACETAMINOPHEN < 2 mcg/mL (10-30)
[2016-12-25] MEDS ORDERED: SODIUM CHLORIDE 0.9% 1,000 ML IV ONE (21:15)
[2016-12-25 22:29] LABS: ACETAMINOPHEN < 2 mcg/mL (10-30); SALICYLATE < 2.8 mg/dL (2.8-20.0)
[2016-12-26] MEDS ORDERED: SODIUM CHLORIDE 0.9% 1,000 ML IV ONE (00:15)
[2016-12-26 01:18] VITALS: BP 105/62
== END 2016-12-26 01:21 | disposition home or self-care (01) ==
LOC: EMS 17:31
DX: T43.592A Poisoning by other antipsychotics and neuroleptics, intentional self-harm, initial encounter (principal); T42.6X2A Poisoning by other antiepileptic and sedative-hypnotic drugs, intentional self-harm, initial encounter; F31.9 Bipolar disorder, unspecified; F20.9 Schizophrenia, unspecified; Z88.0 Allergy status to penicillin; Y92.89 Other specified places as the place of occurrence of the external cause
CPT/HCPCS: 36415; 80053; 80307; 84703; 85025; 93005; 96360; 96361; 99285; G0480; G0482; J7030 ×2; G0481

== ENCOUNTER 2017-01-13 17:53 | Emergency (ER) | payer MEDICAID, OTHER ==
[~2017-01-13] VITALS: Ht 162.6 cm; Wt 75.0 kg
[~2017-01-13 17:53] MED LIST changes: +OMEG100019 PO
[2017-01-13 18:33] LABS: BASOPHILS % (AUTO) 0.2 % (0.0-2.0); EOSINOPHILS % (AUTO) 4.4 % (1.0-6.0); HEMATOCRIT 37.3 % (36-46); HEMOGLOBIN 12.7 g/dL (12.0-16.0); LYMPHOCYTES # (AUTO) 2.2 K/uL (1.0-4.8); LYMPHOCYTES % (AUTO) 25.4 % (22.0-44.0); MEAN CORPUSCULAR HEMOGLOBIN 30.5 pg (26.0-34.0); MEAN CORPUSCULAR HGB CONC 34.2 G/dL (31.0-37.0); MEAN CORPUSCULAR VOLUME 89 fL (80-100); MONOCYTES # (AUTO) 0.8 K/uL (0.1-1.0); MONOCYTES % (AUTO) 9.2 % (2.0-9.0); NEUTROPHILS # (AUTO) 5.3 K/uL (1.8-7.7); NEUTROPHILS % (AUTO) 60.8 % (40.0-70.0); PLATELET COUNT (AUTO) 398 K/uL (150-450); RED BLOOD CELL COUNT(AUTO) 4.18 MIL/uL (4.00-5.20); RED CELL DISTRIBUTION WIDTH 12.5 % (11.5-14.5); WHITE BLOOD COUNT (AUTO) 8.7 K/uL (4.5-11.0)
[2017-01-13 18:41] LABS: ANION GAP 8 mmol/L (8-16); CALCIUM, TOTAL 9.2 mg/dL (8.8-10.5); CARBON DIOXIDE 29 mmol/L (22-29); CHLORIDE 104 mmol/L (98-107); GLOMERULAR FILTR. RATE CALC > 60 mL/min (>60); POTASSIUM 3.9 mmol/L (3.5-5.1); SODIUM SERUM 141 mmol/L (136-145); UREA NITROGEN, BLOOD 12 mg/dL (7-18)
[2017-01-13 18:47] LABS: ALANINE AMINOTRANSFERASE 136 U/L (12-78); ALBUMIN 3.4 g/dL (3.4-5.0); ASPARTATE AMINOTRANSFERASE 46 U/L (15-37); BILIRUBIN,TOTAL 0.3 mg/dL (0.1-1.0); TOTAL PROTEIN, SERUM 7.6 g/dL (6.4-8.2)
[2017-01-13] MEDS ORDERED: HALOPERIDOL 5 MG TABLET PO ONE (19:15)
[2017-01-13 19:41] VITALS: BP 115/73
== END 2017-01-13 19:43 | disposition home or self-care (01) ==
LOC: EMS 17:54
DX: S91.011A Laceration without foreign body, right ankle, initial encounter (principal); F25.9 Schizoaffective disorder, unspecified; F31.9 Bipolar disorder, unspecified; Z88.0 Allergy status to penicillin; Z98.890 Other specified postprocedural states; W10.9XXA Fall (on) (from) unspecified stairs and steps, initial encounter; Y93.89 Activity, other specified; Y92.89 Other specified places as the place of occurrence of the external cause; Y99.9 Unspecified external cause status
CPT/HCPCS: 36415; 80053; 80307; 85025; 99284; G0480

== ENCOUNTER 2017-02-05 18:55 | Emergency (ER) | payer MEDICAID, OTHER ==
[~2017-02-05] VITALS: Ht 162.6 cm; Wt 80.0 kg
[~2017-02-05 18:55] MED LIST changes: +MUPI1OIN4 NS
[2017-02-05 19:26] LABS: BASOPHILS % (AUTO) 0.4 % (0.0-2.0); EOSINOPHILS % (AUTO) 5.2 % (1.0-6.0); HEMATOCRIT 38.4 % (36-46); HEMOGLOBIN 13.1 g/dL (12.0-16.0); LYMPHOCYTES # (AUTO) 2.2 K/uL (1.0-4.8); MEAN CORPUSCULAR HEMOGLOBIN 30.2 pg (26.0-34.0); MEAN CORPUSCULAR VOLUME 89 fL (80-100); MONOCYTES # (AUTO) 0.8 K/uL (0.1-1.0); MONOCYTES % (AUTO) 9.3 % (2.0-9.0); NEUTROPHILS # (AUTO) 5.3 K/uL (1.8-7.7); NEUTROPHILS % (AUTO) 60.1 % (40.0-70.0); PLATELET COUNT (AUTO) 387 K/uL (150-450); RED BLOOD CELL COUNT(AUTO) 4.32 MIL/uL (4.00-5.20); RED CELL DISTRIBUTION WIDTH 12.6 % (11.5-14.5); WHITE BLOOD COUNT (AUTO) 8.9 K/uL (4.5-11.0)
[2017-02-05 19:34] LABS: ANION GAP 11 mmol/L (8-16); CARBON DIOXIDE 24 mmol/L (22-29); CHLORIDE 104 mmol/L (98-107); CREATININE 0.89 mg/dL (0.60-1.30); GLOMERULAR FILTR. RATE CALC > 60 mL/min (>60); POTASSIUM 3.8 mmol/L (3.5-5.1); SODIUM SERUM 139 mmol/L (136-145); UREA NITROGEN, BLOOD 12 mg/dL (7-18)
[2017-02-05 19:41] LABS: ALANINE AMINOTRANSFERASE 103 U/L (12-78); ALBUMIN 3.6 g/dL (3.4-5.0); ASPARTATE AMINOTRANSFERASE 36 U/L (15-37); BILIRUBIN,TOTAL 0.2 mg/dL (0.1-1.0); TOTAL PROTEIN, SERUM 7.5 g/dL (6.4-8.2)
[2017-02-05] MEDS ORDERED: ACETAMINOPHEN 500 MG TABLET PO ONE (21:30)
[2017-02-05] MEDS ORDERED: PERTUSS(ACELL),DIPH,TET VAC/PF 0.5 ML VIAL IM ONE (21:30)
[2017-02-05] MEDS ORDERED: BACITRACIN 0.9 GM PACKET OINTMENT TP ONE (21:30)
[2017-02-05 21:34] VITALS: BP 100/64
== END 2017-02-05 21:58 | disposition home or self-care (01) ==
LOC: EMS 18:58
DX: S61.511A Laceration without foreign body of right wrist, initial encounter (principal); R45.851 Suicidal ideations; F31.9 Bipolar disorder, unspecified; F20.9 Schizophrenia, unspecified; Z88.0 Allergy status to penicillin; X78.9XXA Intentional self-harm by unspecified sharp object, initial encounter; Y93.89 Activity, other specified; Y92.89 Other specified places as the place of occurrence of the external cause; Y99.8 Other external cause status
CPT/HCPCS: 36415; 80053; 80307; 85025; 90471; 90715; 99285; G0480

== ENCOUNTER 2017-02-12 19:32 | Emergency (ER) | payer OTHER ==
[~2017-02-12] VITALS: Ht 162.6 cm; Wt 80.0 kg
[2017-02-12 20:14] LABS: BASOPHILS # (AUTO) 0.04 K/uL (0.00-0.20); BASOPHILS % (AUTO) 0.4 % (0.0-2.0); EOSINOPHILS # (AUTO) 0.34 K/uL (0.00-0.70); HEMATOCRIT 39.2 % (36-46); HEMOGLOBIN 13.2 g/dL (12.0-16.0); LYMPHOCYTES # (AUTO) 2.2 K/uL (1.0-4.8); LYMPHOCYTES % (AUTO) 20.5 % (22.0-44.0); MEAN CORPUSCULAR HGB CONC 33.8 G/dL (31.0-37.0); MEAN CORPUSCULAR VOLUME 89 fL (80-100); MONOCYTES # (AUTO) 0.8 K/uL (0.1-1.0); MONOCYTES % (AUTO) 7.6 % (2.0-9.0); NEUTROPHILS # (AUTO) 7.3 K/uL (1.8-7.7); NEUTROPHILS % (AUTO) 68.4 % (40.0-70.0); PLATELET COUNT (AUTO) 393 K/uL (150-450); RED BLOOD CELL COUNT(AUTO) 4.41 MIL/uL (4.00-5.20); RED CELL DISTRIBUTION WIDTH 12.6 % (11.5-14.5); WHITE BLOOD COUNT (AUTO) 10.7 K/uL (4.5-11.0)
[2017-02-12 20:22] LABS: ANION GAP 9 mmol/L (8-16); CALCIUM, TOTAL 8.8 mg/dL (8.8-10.5); CARBON DIOXIDE 25 mmol/L (22-29); CHLORIDE 106 mmol/L (98-107); CREATININE 0.82 mg/dL (0.60-1.30); GLOMERULAR FILTR. RATE CALC > 60 mL/min (>60); POTASSIUM 3.6 mmol/L (3.5-5.1); SODIUM SERUM 140 mmol/L (136-145); UREA NITROGEN, BLOOD 14 mg/dL (7-18)
[2017-02-12 20:29] LABS: ALANINE AMINOTRANSFERASE 85 U/L (12-78); ALBUMIN 3.7 g/dL (3.4-5.0); ASPARTATE AMINOTRANSFERASE 26 U/L (15-37); BILIRUBIN,TOTAL 0.2 mg/dL (0.1-1.0); TOTAL PROTEIN, SERUM 7.6 g/dL (6.4-8.2)
[2017-02-12] MEDS ORDERED: ACETAMINOPHEN 500 MG TABLET PO ONE (21:15)
[2017-02-12] MEDS ORDERED: BACITRACIN 0.9 GM PACKET OINTMENT TP ONE (21:15)
[2017-02-12 21:52] VITALS: BP 126/89
[2017-02-12] MEDS ORDERED: LORazepam 2 MG TABLET PO ONE (22:00)
[2017-02-12] MEDS ORDERED: HALOPERIDOL 5 MG TABLET PO ONE (22:00)
== END 2017-02-12 22:17 | disposition home or self-care (01) ==
LOC: EMS 19:35
DX: F31.9 Bipolar disorder, unspecified (principal); R45.851 Suicidal ideations; S61.511A Laceration without foreign body of right wrist, initial encounter; F20.9 Schizophrenia, unspecified; F41.9 Anxiety disorder, unspecified; Z88.0 Allergy status to penicillin; X78.0XXA Intentional self-harm by sharp glass, initial encounter; Y93.89 Activity, other specified; Y92.89 Other specified places as the place of occurrence of the external cause; Y99.8 Other external cause status
CPT/HCPCS: 36415; 80053; 80307; 84703; 85025; 99285; G0480; G0482

== ENCOUNTER 2017-03-14 17:09 | Inpatient (IN) | payer MEDICAID, OTHER ==
[~2017-03-14] VITALS: Ht 162.6 cm; Wt 88.5 kg
[~2017-03-14 17:09] MED LIST changes: +ARIP15TA2 PO; -ARIP15TA3 PO; -MUPI1OIN4 NS; +OMEG-135 PO; -OMEG100019 PO
[2017-03-14 19:07] LABS: BASOPHILS % (AUTO) 0.1 % (0.0-2.0); EOSINOPHILS % (AUTO) 3.6 % (1.0-6.0); HEMATOCRIT 38.8 % (36-46); HEMOGLOBIN 13.5 g/dL (12.0-16.0); LYMPHOCYTES % (AUTO) 24.2 % (22.0-44.0); MEAN CORPUSCULAR HEMOGLOBIN 30.8 pg (26.0-34.0); MEAN CORPUSCULAR HGB CONC 34.8 G/dL (31.0-37.0); MEAN CORPUSCULAR VOLUME 89 fL (80-100); MONOCYTES # (AUTO) 0.7 K/uL (0.1-1.0); MONOCYTES % (AUTO) 8.2 % (2.0-9.0); NEUTROPHILS # (AUTO) 5.3 K/uL (1.8-7.7); NEUTROPHILS % (AUTO) 63.9 % (40.0-70.0); PLATELET COUNT (AUTO) 370 K/uL (150-450); RED BLOOD CELL COUNT(AUTO) 4.38 MIL/uL (4.00-5.20); RED CELL DISTRIBUTION WIDTH 12.5 % (11.5-14.5); WHITE BLOOD COUNT (AUTO) 8.4 K/uL (4.5-11.0)
[2017-03-14] MEDS ORDERED: ZOLPIDEM TARTRATE 10 MG TABLET PO PRN (19:15)
[2017-03-14 19:21] LABS: ANION GAP 9 mmol/L (8-16); CARBON DIOXIDE 27 mmol/L (22-29); CHLORIDE 105 mmol/L (98-107); CREATININE 0.89 mg/dL (0.60-1.30); GLOMERULAR FILTR. RATE CALC > 60 mL/min (>60); POTASSIUM 3.8 mmol/L (3.5-5.1); SODIUM SERUM 141 mmol/L (136-145); UREA NITROGEN, BLOOD 9 mg/dL (7-18)
[2017-03-14 19:21] LABS: APPEARANCE,URINE CLEAR (CLEAR); GLUCOSE, URINE (UA) NEGATIVE (NEGATIVE); KETONES,URINE NEGATIVE (NEGATIVE); LEUKOCYTE ESTERASE ,URINE NEGATIVE (NEGATIVE); OCCULT BLOOD,URINE NEGATIVE (NEGATIVE); PROTEIN,URINE NEGATIVE (NEGATIVE)
[2017-03-14 19:22] LABS: ADD UA MICROSCOPIC NO
[2017-03-14 19:29] LABS: ALANINE AMINOTRANSFERASE 58 U/L (12-78); ALBUMIN 3.6 g/dL (3.4-5.0); ASPARTATE AMINOTRANSFERASE 20 U/L (15-37); CHOL/HDL RATIO 3.9 (3.9-5.7); TOTAL PROTEIN, SERUM 7.5 g/dL (6.4-8.2)
[2017-03-14 19:49] LABS: BILIRUBIN,TOTAL 0.1 mg/dL (0.1-1.0)
[2017-03-14 20:59] VITALS: BP 110/63
[2017-03-15] MEDS ORDERED: MAGNESIUM HYDROXIDE SUSPENSION 30 ML UDCUP PO PRN (06:45)
[2017-03-15] MEDS ORDERED: BACITRACIN 28.4 GM OINTMENT TP PRN (06:45)
[2017-03-15] MEDS ORDERED: ACETAMINOPHEN 325 MG TABLET PO PRN (06:45)
[2017-03-15] MEDS ORDERED: IBUPROFEN 600 MG TABLET PO PRN (06:45)
[2017-03-15] MEDS ORDERED: LOPERAMIDE HCL 2 MG CAPSULE PO PRN (06:45)
[2017-03-15] MEDS ORDERED: MAG HYDROX/AL HYDROX/SIMETH ES 30 ML SUSPENSION UDCUP PO PRN (06:45)
[2017-03-15] MEDS ORDERED: ALBUTEROL SULFATE HFA 90 MCG/PUFF 8 GM INHALER IH PRN (06:45)
[2017-03-15] MEDS ORDERED: CloNIDine HCL 0.1 MG TABLET PO PRN (06:45)
[2017-03-15] MEDS ORDERED: ONDANSETRON HCL 4 MG TABLET PO PRN (06:45)
[2017-03-15] MEDS ORDERED: PETROLATUM,WHITE 71 GM JELLY TP PRN (06:45)
[2017-03-15] MEDS ORDERED: BENZOCAINE/MENTHOL LOZENGE [8 LOZENGES/PACKET] MM PRN (07:00)
[2017-03-15 08:30] VITALS: BP 124/84
[2017-03-15] MEDS: OMEGA-3/DHA/EPA/FISH OIL 500 MG CAPSULE PO SCH (09:59)
[2017-03-15] MEDS: LevETIRAcetam 500 MG TABLET PO SCH ×2 (09:59→16:36)
[2017-03-15] MEDS: CHOLECALCIFEROL (VIT D3) 1,000 UNITS TABLET PO SCH (09:59)
[2017-03-15 16:58] VITALS: BP 105/67
[2017-03-16 08:47] VITALS: BP 105/60
[2017-03-16] MEDS: LevETIRAcetam 500 MG TABLET PO SCH ×2 (10:24→16:39)
[2017-03-16] MEDS: ARIPiprazole 15 MG TABLET PO SCH (10:25)
[2017-03-16] MEDS: OMEGA-3/DHA/EPA/FISH OIL 500 MG CAPSULE PO SCH (10:25)
[2017-03-16] MEDS: VENLAFAXINE HCL 75 MG ER CAPSULE PO SCH (10:25)
[2017-03-16] MEDS: CHOLECALCIFEROL (VIT D3) 1,000 UNITS TABLET PO SCH (10:25)
[2017-03-16] MEDS: LORazepam 2 MG TABLET PO PRN (14:19)
[2017-03-16 16:30] VITALS: BP 126/78
[2017-03-16] MEDS: HALOPERIDOL 5 MG TABLET PO PRN (16:39)
[2017-03-17 08:15] VITALS: BP 122/67
[2017-03-17] MEDS: VENLAFAXINE HCL 75 MG ER CAPSULE PO SCH (08:45)
[2017-03-17] MEDS: LevETIRAcetam 500 MG TABLET PO SCH ×2 (08:45→16:13)
[2017-03-17] MEDS: CHOLECALCIFEROL (VIT D3) 1,000 UNITS TABLET PO SCH (08:45)
[2017-03-17] MEDS: ARIPiprazole 15 MG TABLET PO SCH (08:45)
[2017-03-17] MEDS: OMEGA-3/DHA/EPA/FISH OIL 500 MG CAPSULE PO SCH (08:46)
[2017-03-17] MEDS: LORazepam 2 MG TABLET PO PRN ×2 (12:26→16:27)
[2017-03-17 16:54] VITALS: BP 129/77
[2017-03-17] MEDS: HALOPERIDOL 5 MG TABLET PO PRN (17:03)
[2017-03-18 08:58] VITALS: BP 129/72
[2017-03-18] MEDS: ARIPiprazole 15 MG TABLET PO SCH (10:01)
[2017-03-18] MEDS: VENLAFAXINE HCL 75 MG ER CAPSULE PO SCH (10:01)
[2017-03-18] MEDS: LevETIRAcetam 500 MG TABLET PO SCH ×2 (10:02→15:59)
[2017-03-18] MEDS: CHOLECALCIFEROL (VIT D3) 1,000 UNITS TABLET PO SCH (10:02)
[2017-03-18] MEDS: OMEGA-3/DHA/EPA/FISH OIL 500 MG CAPSULE PO SCH (10:02)
[2017-03-18] MEDS: LORazepam 2 MG TABLET PO PRN (15:59)
[2017-03-18] MEDS: HALOPERIDOL 5 MG TABLET PO PRN (15:59)
[2017-03-18 16:00] VITALS: BP 110/76
[2017-03-19] MEDS: OMEGA-3/DHA/EPA/FISH OIL 500 MG CAPSULE PO SCH (07:58)
[2017-03-19] MEDS: ARIPiprazole 15 MG TABLET PO SCH (07:58)
[2017-03-19] MEDS: VENLAFAXINE HCL 75 MG ER CAPSULE PO SCH (07:59)
[2017-03-19] MEDS: LevETIRAcetam 500 MG TABLET PO SCH (07:59)
[2017-03-19] MEDS: CHOLECALCIFEROL (VIT D3) 1,000 UNITS TABLET PO SCH (07:59)
[2017-03-19 08:09] VITALS: BP 123/68
[2017-03-19] MEDS ORDERED: VITAD1000 PO (10:25)
== END 2017-03-19 11:30 | disposition home or self-care (01) | DRG 750 ==
LOC: EMS 17:11 → 3EI 19:23 → 3EC 03-18 16:30
PROVIDERS: ADMIT Psychiatry & Neurology Child & Adolescent Psychiatry; ATTEND Psychiatry & Neurology Child & Adolescent Psychiatry
DX: F25.1 Schizoaffective disorder, depressive type (principal); G40.909 Epilepsy, unspecified, not intractable, without status epilepticus; R45.851 Suicidal ideations; E55.9 Vitamin D deficiency, unspecified; E66.9 Obesity, unspecified; E78.5 Hyperlipidemia, unspecified; F12.90 Cannabis use, unspecified, uncomplicated; G47.00 Insomnia, unspecified; K59.00 Constipation, unspecified; S61.519A Laceration without foreign body of unspecified wrist, initial encounter; Z91.5 Personal history of self-harm; Z98.51 Tubal ligation status; Z88.0 Allergy status to penicillin
CPT/HCPCS: 87081; 99285; G0480

== ENCOUNTER 2017-04-15 11:57 | Inpatient (IN) | payer MEDICAID, OTHER ==
[~2017-04-15] VITALS: Ht 162.6 cm; Wt 88.5 kg
[~2017-04-15 11:57] MED LIST changes: +VITAD1000 PO
[2017-04-15 14:23] LABS: BASOPHILS # (AUTO) 0.02 K/uL (0.00-0.20); BASOPHILS % (AUTO) 0.3 % (0.0-2.0); EOSINOPHILS # (AUTO) 0.12 K/uL (0.00-0.70); EOSINOPHILS % (AUTO) 1.74 % (1.0-6.0); HEMATOCRIT 40.3 % (36-46); HEMOGLOBIN 13.8 g/dL (12.0-16.0); LYMPHOCYTES # (AUTO) 1.7 K/uL (1.0-4.8); MEAN CORPUSCULAR HEMOGLOBIN 30.1 pg (26.0-34.0); MEAN CORPUSCULAR HGB CONC 34.3 G/dL (31.0-37.0); MEAN CORPUSCULAR VOLUME 88 fL (80-100); MONOCYTES # (AUTO) 0.5 K/uL (0.1-1.0); MONOCYTES % (AUTO) 7.7 % (2.0-9.0); NEUTROPHILS # (AUTO) 4.3 K/uL (1.8-7.7); NEUTROPHILS % (AUTO) 64.3 % (40.0-70.0); PLATELET COUNT (AUTO) 346 K/uL (150-450); RED CELL DISTRIBUTION WIDTH 12.4 % (11.5-14.5)
[2017-04-15 14:32] LABS: AMPHET/METH SCREEN,URINE NEGATIVE (NEGATIVE); BARBITURATE SCREEN, URINE NEGATIVE (NEGATIVE); BENZODIAZEPINES SCREEN,URINE NEGATIVE (NEGATIVE); CANNABINOID SCREEN,URINE NEGATIVE (NEGATIVE); COCAINE SCREEN,URINE NEGATIVE (NEGATIVE); METHADONE SCREEN, URINE NEGATIVE (NEGATIVE); OPIATE SCREEN,URINE NEGATIVE (NEGATIVE)
[2017-04-15 14:33] LABS: ANION GAP 10 mmol/L (8-16); CARBON DIOXIDE 26 mmol/L (22-29); CHLORIDE 105 mmol/L (98-107); CREATININE 0.73 mg/dL (0.60-1.30); GLOMERULAR FILTR. RATE CALC > 60 mL/min (>60); GLUCOSE,RANDOM 92 mg/dL (70-110); POTASSIUM 3.9 mmol/L (3.5-5.1); SODIUM SERUM 141 mmol/L (136-145); UREA NITROGEN, BLOOD 10 mg/dL (7-18)
[2017-04-15 14:33] LABS: PHENCYCLIDINE SCREEN,URINE NEGATIVE (NEGATIVE)
[2017-04-15 14:38] LABS: ALANINE AMINOTRANSFERASE 54 U/L (12-78); ALBUMIN 3.8 g/dL (3.4-5.0); ALKALINE PHOSPHATASE 78 U/L (46-116); ASPARTATE AMINOTRANSFERASE 26 U/L (15-37); BILIRUBIN,TOTAL 0.3 mg/dL (0.1-1.0); TOTAL PROTEIN, SERUM 7.8 g/dL (6.4-8.2)
[2017-04-15] MEDS ORDERED: PNEUMOCOCCAL VACCINE POLYVALENT 0.5 ML VIAL [PPSV23] IM ONE (15:45)
[2017-04-15] MEDS ORDERED: PROMETHAZINE HCL 25 MG TABLET PO PRN (16:30)
[2017-04-15] MEDS ORDERED: GuaiFENesin/D-METHORPHAN [SUGAR-FREE] 200-20MG/10 ML SYRUP UDCUP PO PRN (16:30)
[2017-04-15] MEDS ORDERED: MAG HYDROX/AL HYDROX/SIMETH ES 30 ML SUSPENSION UDCUP PO PRN (16:30)
[2017-04-15] MEDS ORDERED: LOPERAMIDE HCL 2 MG CAPSULE PO PRN (16:30)
[2017-04-15] MEDS ORDERED: ACETAMINOPHEN 325 MG TABLET PO PRN (16:30)
[2017-04-15] MEDS ORDERED: MAGNESIUM HYDROXIDE SUSPENSION 30 ML UDCUP PO PRN (16:30)
[2017-04-15] MEDS ORDERED: TUBERCULIN, PURIFIED PROTEIN DERIVATIVE 5 TU/0.1 ML SYG ID ONE (16:30)
[2017-04-15] MEDS ORDERED: HydrOXYzine PAMOATE 50 MG CAPSULE PO PRN (16:30)
[2017-04-15 16:42] VITALS: BP 127/81
[2017-04-15 19:08] VITALS: BP 100/59
[2017-04-15] MEDS: THIAMINE HCL 100 MG TABLET PO SCH (21:00)
[2017-04-15] MEDS: LevETIRAcetam 500 MG TABLET PO SCH (21:00)
[2017-04-16 03:47] VITALS: BP 101/65
[2017-04-16 03:48] VITALS: BP 101/71
[2017-04-16 07:04] LABS: CHOL/HDL RATIO 3.8 (3.9-5.7)
[2017-04-16 09:38] VITALS: BP 96/52
[2017-04-16] MEDS: VENLAFAXINE HCL 75 MG ER CAPSULE PO SCH (09:48)
[2017-04-16] MEDS: ARIPiprazole 15 MG TABLET PO SCH (09:48)
[2017-04-16] MEDS: LevETIRAcetam 500 MG TABLET PO SCH ×2 (09:49→17:00)
[2017-04-16] MEDS: THIAMINE HCL 100 MG TABLET PO SCH ×2 (09:49→17:00)
[2017-04-16] MEDS: FOLIC ACID 1 MG TABLET PO SCH (09:49)
[2017-04-16] MEDS: MULTIVITAMINS WITH MINERALS, THERAPEUTIC TABLET PO SCH (09:49)
[2017-04-16 16:09] VITALS: BP 122/75
[2017-04-16] MEDS: LORazepam 2 MG TABLET PO PRN (17:30)
[2017-04-17 03:20] VITALS: BP 104/61
[2017-04-17] MEDS: MULTIVITAMINS WITH MINERALS, THERAPEUTIC TABLET PO SCH (09:26)
[2017-04-17] MEDS: FOLIC ACID 1 MG TABLET PO SCH (09:27)
[2017-04-17] MEDS: VENLAFAXINE HCL 75 MG ER CAPSULE PO SCH (09:27)
[2017-04-17] MEDS: LevETIRAcetam 500 MG TABLET PO SCH ×2 (09:27→16:08)
[2017-04-17] MEDS: THIAMINE HCL 100 MG TABLET PO SCH ×2 (09:27→16:08)
[2017-04-17] MEDS: ARIPiprazole 15 MG TABLET PO SCH (09:28)
[2017-04-17 11:37] VITALS: BP 123/65
[2017-04-17] MEDS: LORazepam 2 MG TABLET PO PRN ×2 (13:59→18:17)
[2017-04-17] MEDS: HALOPERIDOL 5 MG TABLET PO PRN ×2 (13:59→18:17)
[2017-04-17 20:22] VITALS: BP 122/78
[2017-04-18 02:11] VITALS: BP 97/54
[2017-04-18 08:12] VITALS: BP 115/66
[2017-04-18] MEDS: ARIPiprazole 15 MG TABLET PO SCH (08:32)
[2017-04-18] MEDS: LevETIRAcetam 500 MG TABLET PO SCH ×2 (08:33→16:13)
[2017-04-18] MEDS: THIAMINE HCL 100 MG TABLET PO SCH ×2 (08:33→16:13)
[2017-04-18] MEDS: VENLAFAXINE HCL 75 MG ER CAPSULE PO SCH (08:33)
[2017-04-18] MEDS: FOLIC ACID 1 MG TABLET PO SCH (08:33)
[2017-04-18] MEDS: MULTIVITAMINS WITH MINERALS, THERAPEUTIC TABLET PO SCH (08:33)
[2017-04-18] MEDS: LORazepam 2 MG TABLET PO PRN (16:13)
[2017-04-18] MEDS: HALOPERIDOL 5 MG TABLET PO PRN (16:14)
[2017-04-18 16:48] VITALS: BP 133/92
[2017-04-19 02:39] VITALS: BP 109/64
[2017-04-19] MEDS: ZOLPIDEM TARTRATE 10 MG TABLET PO PRN ×2 (02:40→21:52)
[2017-04-19] MEDS: ARIPiprazole 15 MG TABLET PO SCH (08:24)
[2017-04-19] MEDS: FOLIC ACID 1 MG TABLET PO SCH (08:25)
[2017-04-19] MEDS: VENLAFAXINE HCL 75 MG ER CAPSULE PO SCH (08:25)
[2017-04-19] MEDS: MULTIVITAMINS WITH MINERALS, THERAPEUTIC TABLET PO SCH (08:25)
[2017-04-19] MEDS: LevETIRAcetam 500 MG TABLET PO SCH ×2 (08:25→17:28)
[2017-04-19] MEDS: THIAMINE HCL 100 MG TABLET PO SCH ×2 (08:26→17:28)
[2017-04-19] MEDS: LORazepam 2 MG TABLET PO PRN (12:30)
[2017-04-19] MEDS: HALOPERIDOL 5 MG TABLET PO PRN (12:30)
[2017-04-19 16:08] VITALS: BP 124/78
[2017-04-20 04:06] VITALS: BP 117/66
[2017-04-20] MEDS: LORazepam 2 MG TABLET PO PRN ×2 (04:09→16:07)
[2017-04-20 08:15] VITALS: BP 112/67
[2017-04-20] MEDS: ARIPiprazole 15 MG TABLET PO SCH (08:20)
[2017-04-20] MEDS: THIAMINE HCL 100 MG TABLET PO SCH ×2 (08:21→16:07)
[2017-04-20] MEDS: VENLAFAXINE HCL 75 MG ER CAPSULE PO SCH (08:21)
[2017-04-20] MEDS: MULTIVITAMINS WITH MINERALS, THERAPEUTIC TABLET PO SCH (08:21)
[2017-04-20] MEDS: LevETIRAcetam 500 MG TABLET PO SCH ×2 (08:21→16:07)
[2017-04-20] MEDS: FOLIC ACID 1 MG TABLET PO SCH (08:21)
[2017-04-20] MEDS: HALOPERIDOL 5 MG TABLET PO PRN (16:07)
[2017-04-20 16:30] VITALS: BP 120/74
[2017-04-21] MEDS: ZOLPIDEM TARTRATE 10 MG TABLET PO PRN (01:08)
[2017-04-21 03:50] VITALS: BP 110/76
[2017-04-21 08:20] VITALS: BP 128/74
[2017-04-21] MEDS: ARIPiprazole 15 MG TABLET PO SCH (09:14)
[2017-04-21] MEDS: FOLIC ACID 1 MG TABLET PO SCH (09:15)
[2017-04-21] MEDS: LevETIRAcetam 500 MG TABLET PO SCH ×2 (09:15→16:34)
[2017-04-21] MEDS: THIAMINE HCL 100 MG TABLET PO SCH ×2 (09:15→16:34)
[2017-04-21] MEDS: VENLAFAXINE HCL 75 MG ER CAPSULE PO SCH (09:15)
[2017-04-21] MEDS: MULTIVITAMINS WITH MINERALS, THERAPEUTIC TABLET PO SCH (09:15)
[2017-04-21 16:26] VITALS: BP 113/66
[2017-04-21] MEDS: LORazepam 2 MG TABLET PO PRN (16:34)
[2017-04-21] MEDS: HALOPERIDOL 5 MG TABLET PO PRN (17:57)
[2017-04-21] MEDS ORDERED: ACETAMINOPHEN 325 MG TABLET PO PRN (18:00)
[2017-04-21 18:20] VITALS: BP 114/65
[2017-04-22] MEDS: THIAMINE HCL 100 MG TABLET PO SCH (08:55)
[2017-04-22] MEDS: LevETIRAcetam 500 MG TABLET PO SCH (08:55)
[2017-04-22] MEDS: VENLAFAXINE HCL 75 MG ER CAPSULE PO SCH (08:55)
[2017-04-22] MEDS: ARIPiprazole 15 MG TABLET PO SCH (08:55)
[2017-04-22] MEDS: FOLIC ACID 1 MG TABLET PO SCH (08:55)
[2017-04-22] MEDS: MULTIVITAMINS WITH MINERALS, THERAPEUTIC TABLET PO SCH (08:56)
[2017-04-22] MEDS ORDERED: MV-M1TAB2 PO (11:14)
[2017-04-22] MEDS ORDERED: FOLI1 PO (11:14)
[2017-04-22] MEDS ORDERED: THIA100 PO (11:14)
[2017-04-22 13:39] VITALS: BP 132/88
== END 2017-04-22 13:20 | disposition home or self-care (01) | DRG 750 ==
LOC: EMS 12:00 → AHU 13:34 → 3EI 19:49
PROVIDERS: ADMIT Psychiatry & Neurology Child & Adolescent Psychiatry; ATTEND Psychiatry & Neurology Child & Adolescent Psychiatry
DX: F25.9 Schizoaffective disorder, unspecified (principal); G40.909 Epilepsy, unspecified, not intractable, without status epilepticus; R45.851 Suicidal ideations; E55.9 Vitamin D deficiency, unspecified; E66.9 Obesity, unspecified; F12.90 Cannabis use, unspecified, uncomplicated; F41.9 Anxiety disorder, unspecified; G47.00 Insomnia, unspecified; K59.00 Constipation, unspecified; Z68.32 Body mass index [BMI] 32.0-32.9, adult; Z88.0 Allergy status to penicillin; Z98.51 Tubal ligation status; Z79.899 Other long term (current) drug therapy
CPT/HCPCS: 80307; 87081; 99285; G0480

== ENCOUNTER 2017-05-20 18:41 | Inpatient (IN) | payer MEDICAID, OTHER ==
[~2017-05-20] VITALS: Ht 162.6 cm; Wt 90.7 kg
[~2017-05-20 18:41] MED LIST changes: +FOLI1 PO; +MV-M1TAB2 PO; -OMEG-135 PO; +THIA100 PO; -VITAD1000 PO
[2017-05-20 20:17] LABS: EOSINOPHILS % (AUTO) 2.3 % (1.0-6.0); HEMATOCRIT 40.5 % (36-46); HEMOGLOBIN 13.9 g/dL (12.0-16.0); LYMPHOCYTES # (AUTO) 2.5 K/uL (1.0-4.8); LYMPHOCYTES % (AUTO) 26.1 % (22.0-44.0); MEAN CORPUSCULAR HEMOGLOBIN 30.5 pg (26.0-34.0); MEAN CORPUSCULAR HGB CONC 34.3 G/dL (31.0-37.0); MEAN CORPUSCULAR VOLUME 89 fL (80-100); MONOCYTES # (AUTO) 0.9 K/uL (0.1-1.0); MONOCYTES % (AUTO) 9.4 % (2.0-9.0); NEUTROPHILS % (AUTO) 62.2 % (40.0-70.0); PLATELET COUNT (AUTO) 388 K/uL (150-450); RED BLOOD CELL COUNT(AUTO) 4.55 MIL/uL (4.00-5.20); RED CELL DISTRIBUTION WIDTH 12.7 % (11.5-14.5); WHITE BLOOD COUNT (AUTO) 9.6 K/uL (4.5-11.0)
[2017-05-20 20:26] LABS: ANION GAP 6 mmol/L (8-16); CARBON DIOXIDE 30 mmol/L (22-29); CHLORIDE 103 mmol/L (98-107); CREATININE 0.85 mg/dL (0.60-1.30); SODIUM SERUM 139 mmol/L (136-145); UREA NITROGEN, BLOOD 7 mg/dL (7-18)
[2017-05-20 20:27] LABS: CALCIUM, TOTAL 9.4 mg/dL (8.8-10.5); GLOMERULAR FILTR. RATE CALC > 60 mL/min (>60)
[2017-05-20 20:33] LABS: ALANINE AMINOTRANSFERASE 88 U/L (12-78); ALBUMIN 3.7 g/dL (3.4-5.0); ASPARTATE AMINOTRANSFERASE 29 U/L (15-37); BILIRUBIN,TOTAL 0.2 mg/dL (0.1-1.0); TOTAL PROTEIN, SERUM 7.7 g/dL (6.4-8.2)
[2017-05-20] MEDS ORDERED: ZOLPIDEM TARTRATE 10 MG TABLET PO PRN (22:30)
[2017-05-21 00:50] VITALS: BP 107/64
[2017-05-21 08:14] VITALS: BP 138/81
[2017-05-21] MEDS: LevETIRAcetam 500 MG TABLET PO SCH ×2 (08:36→16:23)
[2017-05-21] MEDS: MULTIVITAMINS, THERAPEUTIC TABLET PO SCH (08:36)
[2017-05-21] MEDS: THIAMINE HCL 100 MG TABLET PO SCH ×2 (08:36→16:23)
[2017-05-21] MEDS: FOLIC ACID 1 MG TABLET PO SCH (08:36)
[2017-05-21 08:41] LABS: CHOL/HDL RATIO 3.5 (3.9-5.7); THYROID STIMULATING HORMONE 0.74 uIU/mL (0.36-3.74)
[2017-05-21] MEDS: ARIPiprazole 15 MG TABLET PO SCH (09:54)
[2017-05-21] MEDS: VENLAFAXINE HCL 75 MG ER CAPSULE PO SCH (09:54)
[2017-05-21] MEDS ORDERED: IBUPROFEN 400 MG TABLET PO PRN (12:45)
[2017-05-21] MEDS ORDERED: ACETAMINOPHEN 325 MG TABLET PO PRN (12:45)
[2017-05-21 13:30] VITALS: BP 109/66
[2017-05-21] MEDS: LORazepam 2 MG TABLET PO PRN (13:44)
[2017-05-21 16:54] VITALS: BP 115/62
[2017-05-21] MEDS ORDERED: THIAMINE HCL 100 MG TABLET PO SCH (17:00)
[2017-05-21] MEDS ORDERED: LevETIRAcetam 500 MG TABLET PO SCH (17:00)
[2017-05-22 00:18] VITALS: BP 106/64
[2017-05-22 08:38] LABS: HEMOGLOBIN A1C 5.4 % (4.5-6.2)
[2017-05-22 08:50] LABS: CHOL/HDL RATIO 3.6 (3.9-5.7)
[2017-05-22] MEDS ORDERED: FOLIC ACID 1 MG TABLET PO SCH (09:00)
[2017-05-22] MEDS: LORazepam 2 MG TABLET PO PRN ×2 (09:37→17:27)
[2017-05-22] MEDS: LevETIRAcetam 500 MG TABLET PO SCH ×2 (09:37→17:10)
[2017-05-22] MEDS: ARIPiprazole 15 MG TABLET PO SCH (09:37)
[2017-05-22] MEDS: THIAMINE HCL 100 MG TABLET PO SCH ×2 (09:38→17:10)
[2017-05-22] MEDS: FOLIC ACID 1 MG TABLET PO SCH (09:38)
[2017-05-22] MEDS: VENLAFAXINE HCL 75 MG ER CAPSULE PO SCH (09:38)
[2017-05-22] MEDS: MULTIVITAMINS, THERAPEUTIC TABLET PO SCH (09:38)
[2017-05-22 09:39] VITALS: BP 100/44
[2017-05-22] MEDS: HALOPERIDOL 5 MG TABLET PO PRN ×2 (09:52→17:27)
[2017-05-22 16:21] VITALS: BP 108/61
[2017-05-23 06:13] VITALS: BP 101/68
[2017-05-23] MEDS: MULTIVITAMINS, THERAPEUTIC TABLET PO SCH (08:36)
[2017-05-23] MEDS: LevETIRAcetam 500 MG TABLET PO SCH ×2 (08:36→16:19)
[2017-05-23] MEDS: ARIPiprazole 15 MG TABLET PO SCH (08:36)
[2017-05-23] MEDS: FOLIC ACID 1 MG TABLET PO SCH (08:37)
[2017-05-23] MEDS: THIAMINE HCL 100 MG TABLET PO SCH ×2 (08:37→16:19)
[2017-05-23] MEDS: VENLAFAXINE HCL 75 MG ER CAPSULE PO SCH (08:37)
[2017-05-23 08:50] VITALS: BP 111/89
[2017-05-23] MEDS: LORazepam 2 MG TABLET PO PRN ×2 (10:47→16:24)
[2017-05-23] MEDS: HALOPERIDOL 5 MG TABLET PO PRN (13:10)
[2017-05-23 16:00] VITALS: BP 122/71
[2017-05-24 06:30] VITALS: BP 108/69
[2017-05-24] MEDS: MULTIVITAMINS, THERAPEUTIC TABLET PO SCH (08:19)
[2017-05-24] MEDS: FOLIC ACID 1 MG TABLET PO SCH (08:19)
[2017-05-24] MEDS: VENLAFAXINE HCL 75 MG ER CAPSULE PO SCH (08:19)
[2017-05-24] MEDS: LevETIRAcetam 500 MG TABLET PO SCH (08:19)
[2017-05-24] MEDS: ARIPiprazole 15 MG TABLET PO SCH (08:19)
[2017-05-24] MEDS: THIAMINE HCL 100 MG TABLET PO SCH (08:22)
[2017-05-24 08:59] VITALS: BP 111/67
[2017-05-24] MEDS: HALOPERIDOL 5 MG TABLET PO PRN (09:36)
== END 2017-05-24 17:00 | disposition home or self-care (01) | DRG 750 ==
LOC: EMS 18:43 → B2S 22:30
PROVIDERS: ADMIT Psychiatry & Neurology Child & Adolescent Psychiatry; ATTEND Psychiatry & Neurology Child & Adolescent Psychiatry
DX: F25.1 Schizoaffective disorder, depressive type (principal); G40.909 Epilepsy, unspecified, not intractable, without status epilepticus; R45.851 Suicidal ideations; E55.9 Vitamin D deficiency, unspecified; Z88.0 Allergy status to penicillin; G47.00 Insomnia, unspecified; K59.09 Other constipation; E66.9 Obesity, unspecified; F41.9 Anxiety disorder, unspecified; Z79.899 Other long term (current) drug therapy
CPT/HCPCS: 83036; 84439; 84443; 99285; G0480

== ENCOUNTER 2017-05-31 13:07 | Inpatient (IN) | payer MEDICAID, OTHER ==
[~2017-05-31] VITALS: Ht 162.6 cm; Wt 92.6 kg
[~2017-05-31 13:07] MED LIST changes: -FOLI1 PO; -MV-M1TAB2 PO; -THIA100 PO
[2017-05-31 13:34] LABS: BASOPHILS % (AUTO) 0.1 % (0.0-2.0); EOSINOPHILS % (AUTO) 2.5 % (1.0-6.0); HEMATOCRIT 37.1 % (36-46); HEMOGLOBIN 12.8 g/dL (12.0-16.0); LYMPHOCYTES % (AUTO) 23.7 % (22.0-44.0); MEAN CORPUSCULAR HEMOGLOBIN 30.9 pg (26.0-34.0); MEAN CORPUSCULAR HGB CONC 34.4 G/dL (31.0-37.0); MEAN CORPUSCULAR VOLUME 90 fL (80-100); MONOCYTES # (AUTO) 0.9 K/uL (0.1-1.0); MONOCYTES % (AUTO) 10.8 % (2.0-9.0); NEUTROPHILS # (AUTO) 5.4 K/uL (1.8-7.7); NEUTROPHILS % (AUTO) 62.9 % (40.0-70.0); PLATELET COUNT (AUTO) 382 K/uL (150-450); RED BLOOD CELL COUNT(AUTO) 4.13 MIL/uL (4.00-5.20); RED CELL DISTRIBUTION WIDTH 13.4 % (11.5-14.5); WHITE BLOOD COUNT (AUTO) 8.6 K/uL (4.5-11.0)
[2017-05-31 13:50] LABS: ANION GAP 9 mmol/L (8-16); CALCIUM, TOTAL 8.5 mg/dL (8.8-10.5); CARBON DIOXIDE 24 mmol/L (22-29); CHLORIDE 107 mmol/L (98-107); CREATININE 0.84 mg/dL (0.60-1.30); GLOMERULAR FILTR. RATE CALC > 60 mL/min (>60); POTASSIUM 3.9 mmol/L (3.5-5.1); SODIUM SERUM 140 mmol/L (136-145); UREA NITROGEN, BLOOD 7 mg/dL (7-18)
[2017-05-31 13:54] LABS: ALANINE AMINOTRANSFERASE 118 U/L (12-78); ALBUMIN 3.2 g/dL (3.4-5.0); ASPARTATE AMINOTRANSFERASE 57 U/L (15-37); BILIRUBIN,TOTAL 0.2 mg/dL (0.1-1.0); TOTAL PROTEIN, SERUM 6.9 g/dL (6.4-8.2)
[2017-05-31] MEDS ORDERED: SODIUM CHLORIDE 0.9% 250 ML IRRIG SOLUTION BOTTLE IRRIG ONE (17:00)
[2017-05-31 19:29] VITALS: BP 114/71
[2017-05-31] MEDS: LORazepam 2 MG TABLET PO PRN (19:48)
[2017-05-31] MEDS: HALOPERIDOL 5 MG TABLET PO PRN (19:48)
[2017-06-01 06:42] VITALS: BP 119/78
[2017-06-01 08:00] VITALS: BP 122/89
[2017-06-01 08:30] VITALS: BP 107/63
[2017-06-01] MEDS: LevETIRAcetam 500 MG TABLET PO SCH ×2 (08:37→16:48)
[2017-06-01] MEDS: HALOPERIDOL 5 MG TABLET PO PRN ×2 (08:37→16:48)
[2017-06-01] MEDS: ARIPiprazole 15 MG TABLET PO SCH (08:37)
[2017-06-01] MEDS: LORazepam 2 MG TABLET PO PRN ×2 (08:37→16:48)
[2017-06-01] MEDS: VENLAFAXINE HCL 75 MG ER CAPSULE PO SCH (08:38)
[2017-06-01] MEDS: BACITRACIN 28.4 GM OINTMENT TP SCH ×2 (08:40→16:48)
[2017-06-01] MEDS ORDERED: ACETAMINOPHEN 325 MG TABLET PO PRN (11:45)
[2017-06-01] MEDS ORDERED: DOCUSATE SODIUM 100 MG CAPSULE PO PRN (11:45)
[2017-06-01 16:00] VITALS: BP 108/68
[2017-06-01] MEDS ORDERED: LevETIRAcetam 500 MG TABLET PO SCH (17:00)
[2017-06-02 06:53] VITALS: BP 113/61
[2017-06-02 07:43] LABS: THYROID STIMULATING HORMONE 0.51 uIU/mL (0.36-3.74)
[2017-06-02] MEDS: BACITRACIN 28.4 GM OINTMENT TP SCH ×2 (08:31→16:47)
[2017-06-02] MEDS: VENLAFAXINE HCL 75 MG ER CAPSULE PO SCH (08:31)
[2017-06-02] MEDS: ARIPiprazole 15 MG TABLET PO SCH (08:31)
[2017-06-02] MEDS: LevETIRAcetam 500 MG TABLET PO SCH ×2 (08:31→16:45)
[2017-06-02 08:37] VITALS: BP 100/51
[2017-06-02 08:49] LABS: HEMOGLOBIN A1C 5.4 % (4.5-6.2)
[2017-06-02] MEDS: HALOPERIDOL 5 MG TABLET PO PRN ×2 (08:54→16:45)
[2017-06-02] MEDS: LORazepam 2 MG TABLET PO PRN ×2 (08:54→16:45)
[2017-06-02] MEDS ORDERED: ARIPiprazole LAUROXIL ER SUSPENSION 882 MG/3.2 ML SYRINGE IM SCH (09:00)
[2017-06-02] MEDS ORDERED: VENLAFAXINE HCL 75 MG ER CAPSULE PO SCH (09:00)
[2017-06-02] MEDS ORDERED: ARIPiprazole 15 MG TABLET PO SCH (09:00)
[2017-06-02 10:29] LABS: HEPATITIS Bs ANTIGEN SCREEN P Negative (Negative); HEPATITIS C AB SCREEN 0.1 s/co ratio (0.0-0.9)
[2017-06-02 16:01] VITALS: BP_SYST 109
[2017-06-02] MEDS: ZOLPIDEM TARTRATE 10 MG TABLET PO PRN (23:42)
[2017-06-03 06:13] VITALS: BP 107/64
[2017-06-03] MEDS: ARIPiprazole 15 MG TABLET PO SCH (09:28)
[2017-06-03] MEDS: VENLAFAXINE HCL 75 MG ER CAPSULE PO SCH (09:28)
[2017-06-03] MEDS: LevETIRAcetam 500 MG TABLET PO SCH ×2 (09:28→17:02)
[2017-06-03] MEDS: BACITRACIN 28.4 GM OINTMENT TP SCH ×2 (09:30→17:02)
[2017-06-03] MEDS: LORazepam 2 MG TABLET PO PRN ×2 (10:34→17:02)
[2017-06-03] MEDS: HALOPERIDOL 5 MG TABLET PO PRN ×2 (10:34→17:02)
[2017-06-03 16:03] VITALS: BP 109/67
[2017-06-03] MEDS: IBUPROFEN 400 MG TABLET PO PRN (18:00)
[2017-06-03] MEDS: ZOLPIDEM TARTRATE 10 MG TABLET PO PRN (20:53)
[2017-06-04 00:12] VITALS: BP 112/63
[2017-06-04 08:00] VITALS: BP 124/77
[2017-06-04] MEDS: VENLAFAXINE HCL 75 MG ER CAPSULE PO SCH (09:12)
[2017-06-04] MEDS: ARIPiprazole 15 MG TABLET PO SCH (09:12)
[2017-06-04] MEDS: LevETIRAcetam 500 MG TABLET PO SCH (09:12)
[2017-06-04] MEDS: BACITRACIN 28.4 GM OINTMENT TP SCH (09:12)
[2017-06-04] MEDS: IBUPROFEN 400 MG TABLET PO PRN (09:13)
[2017-06-04] MEDS ORDERED: ARIP882S IM (11:21)
== END 2017-06-04 13:32 | disposition home or self-care (01) | DRG 750 ==
LOC: EMS 13:09 → B3A 17:20
PROVIDERS: ATTEND Psychiatry & Neurology Child & Adolescent Psychiatry
DX: F25.1 Schizoaffective disorder, depressive type (principal); R45.851 Suicidal ideations; G40.909 Epilepsy, unspecified, not intractable, without status epilepticus; F32.9 Major depressive disorder, single episode, unspecified; S64.91XA Injury of unspecified nerve at wrist and hand level of right arm, initial encounter; D72.829 Elevated white blood cell count, unspecified; F41.9 Anxiety disorder, unspecified; S84.91XA Injury of unspecified nerve at lower leg level, right leg, initial encounter; M10.9 Gout, unspecified; K59.09 Other constipation; R74.0 Nonspecific elevation of levels of transaminase and lactic acid dehydrogenase [LDH]; Z88.0 Allergy status to penicillin; Z79.899 Other long term (current) drug therapy; Z98.51 Tubal ligation status; Z81.8 Family history of other mental and behavioral disorders; X58.XXXA Exposure to other specified factors, initial encounter; Y93.89 Activity, other specified; Y92.89 Other specified places as the place of occurrence of the external cause; Y99.8 Other external cause status
CPT/HCPCS: 80074; 83036; 84436; 84439; 84443; 87081; 99285; G0480; G0482

== ENCOUNTER 2017-06-07 15:57 | Inpatient (IN) | payer MEDICAID, OTHER ==
[~2017-06-07] VITALS: Ht 165.1 cm; Wt 92.3 kg
[~2017-06-07 15:57] MED LIST changes: +ARIP882S IM
[2017-06-07 17:28] LABS: BASOPHILS % (AUTO) 0.5 % (0.0-2.0); EOSINOPHILS % (AUTO) 3.3 % (1.0-6.0); HEMATOCRIT 37.7 % (36-46); HEMOGLOBIN 12.7 g/dL (12.0-16.0); LYMPHOCYTES # (AUTO) 1.9 K/uL (1.0-4.8); LYMPHOCYTES % (AUTO) 23.5 % (22.0-44.0); MEAN CORPUSCULAR HEMOGLOBIN 30.4 pg (26.0-34.0); MEAN CORPUSCULAR HGB CONC 33.8 G/dL (31.0-37.0); MEAN CORPUSCULAR VOLUME 90 fL (80-100); MONOCYTES # (AUTO) 0.7 K/uL (0.1-1.0); MONOCYTES % (AUTO) 8.3 % (2.0-9.0); NEUTROPHILS # (AUTO) 5.2 K/uL (1.8-7.7); NEUTROPHILS % (AUTO) 64.4 % (40.0-70.0); PLATELET COUNT (AUTO) 411 K/uL (150-450); RED BLOOD CELL COUNT(AUTO) 4.19 MIL/uL (4.00-5.20); RED CELL DISTRIBUTION WIDTH 12.9 % (11.5-14.5); WHITE BLOOD COUNT (AUTO) 8.1 K/uL (4.5-11.0)
[2017-06-07 17:40] LABS: ANION GAP 9 mmol/L (8-16); CALCIUM, TOTAL 9.8 mg/dL (8.8-10.5); CARBON DIOXIDE 29 mmol/L (22-29); CHLORIDE 105 mmol/L (98-107); CREATININE 0.84 mg/dL (0.60-1.30); GLOMERULAR FILTR. RATE CALC > 60 mL/min (>60); POTASSIUM 3.9 mmol/L (3.5-5.1); SODIUM SERUM 143 mmol/L (136-145); UREA NITROGEN, BLOOD 12 mg/dL (7-18)
[2017-06-07 17:46] LABS: ALANINE AMINOTRANSFERASE 133 U/L (12-78); ALBUMIN 3.4 g/dL (3.4-5.0); ASPARTATE AMINOTRANSFERASE 40 U/L (15-37); BILIRUBIN,TOTAL 0.2 mg/dL (0.1-1.0); TOTAL PROTEIN, SERUM 7.5 g/dL (6.4-8.2)
[2017-06-07 22:22] VITALS: BP 103/54
[2017-06-08 08:15] VITALS: BP 105/67
[2017-06-08] MEDS: LORazepam 2 MG TABLET PO PRN (11:15)
[2017-06-08] MEDS: HALOPERIDOL 5 MG TABLET PO PRN (11:30)
[2017-06-08 16:36] VITALS: BP 118/72
[2017-06-08] MEDS: LevETIRAcetam 500 MG TABLET PO SCH (16:49)
[2017-06-08] MEDS ORDERED: IBUPROFEN 400 MG TABLET PO PRN (19:45)
[2017-06-08] MEDS ORDERED: ACETAMINOPHEN 325 MG TABLET PO PRN (19:45)
[2017-06-09] MEDS: ZOLPIDEM TARTRATE 10 MG TABLET PO PRN ×2 (02:15→22:19)
[2017-06-09 02:20] VITALS: BP 118/68
[2017-06-09] MEDS: LevETIRAcetam 500 MG TABLET PO SCH ×2 (08:01→17:24)
[2017-06-09] MEDS: HALOPERIDOL 5 MG TABLET PO PRN ×2 (08:01→14:41)
[2017-06-09] MEDS: LORazepam 2 MG TABLET PO PRN ×2 (08:01→14:40)
[2017-06-09 08:21] VITALS: BP 129/76
[2017-06-09 10:44] LABS: APPEARANCE,URINE CLEAR (CLEAR); GLUCOSE, URINE (UA) NEGATIVE (NEGATIVE); KETONES,URINE NEGATIVE (NEGATIVE); LEUKOCYTE ESTERASE ,URINE NEGATIVE (NEGATIVE); OCCULT BLOOD,URINE TRACE (NEGATIVE); PROTEIN,URINE NEGATIVE (NEGATIVE)
[2017-06-09 11:22] LABS: ADD UA MICROSCOPIC YES; RBC,URINE 0-2 /HPF (0-2); WBC,URINE None Seen /HPF (0-5)
[2017-06-09 17:39] VITALS: BP 125/79
[2017-06-10 06:22] VITALS: BP 117/74
[2017-06-10] MEDS: LevETIRAcetam 500 MG TABLET PO SCH (08:10)
[2017-06-10 08:35] VITALS: BP 118/72
[2017-06-10] MEDS: HALOPERIDOL 5 MG TABLET PO PRN (09:17)
[2017-06-10] MEDS: LORazepam 2 MG TABLET PO PRN (09:17)
== END 2017-06-10 13:15 | disposition home or self-care (01) | DRG 750 ==
LOC: EMS 16:00 → 3EI 20:24
PROVIDERS: ADMIT Psychiatry & Neurology Child & Adolescent Psychiatry; ATTEND Psychiatry & Neurology Child & Adolescent Psychiatry
DX: F25.9 Schizoaffective disorder, unspecified (principal); R45.851 Suicidal ideations; G40.909 Epilepsy, unspecified, not intractable, without status epilepticus; F41.9 Anxiety disorder, unspecified; F31.9 Bipolar disorder, unspecified; M10.9 Gout, unspecified; R74.0 Nonspecific elevation of levels of transaminase and lactic acid dehydrogenase [LDH]; Z88.0 Allergy status to penicillin; Z79.899 Other long term (current) drug therapy; Z98.51 Tubal ligation status
CPT/HCPCS: 87081; 99285; G0480

== ENCOUNTER 2017-06-11 18:41 | Emergency (ER) | payer MEDICAID ==
[~2017-06-11] VITALS: Ht 162.6 cm; Wt 94.5 kg
[~2017-06-11 18:41] MED LIST changes: -ARIP15TA2 PO; -VENL-67 PO
[2017-06-11 19:00] VITALS: BP 119/57
== END 2017-06-11 21:11 | disposition left against medical advice (07) ==
LOC: EMS 18:44
DX: F41.9 Anxiety disorder, unspecified (principal); Z53.21 Procedure and treatment not carried out due to patient leaving prior to being seen by health care provider

== ENCOUNTER 2017-06-29 15:35 | Emergency (ER) | payer MEDICAID, OTHER ==
[~2017-06-29] VITALS: Ht 162.6 cm; Wt 100.0 kg
[2017-06-29 16:05] LABS: BASOPHILS # (AUTO) 0.01 K/uL (0.00-0.20); BASOPHILS % (AUTO) 0.1 % (0.0-2.0); EOSINOPHILS # (AUTO) 0.21 K/uL (0.00-0.70); EOSINOPHILS % (AUTO) 2.52 % (1.0-6.0); HEMATOCRIT 38.2 % (36-46); HEMOGLOBIN 12.6 g/dL (12.0-16.0); LYMPHOCYTES # (AUTO) 1.9 K/uL (1.0-4.8); MEAN CORPUSCULAR VOLUME 91 fL (80-100); MONOCYTES # (AUTO) 0.6 K/uL (0.1-1.0); MONOCYTES % (AUTO) 7.9 % (2.0-9.0); NEUTROPHILS # (AUTO) 5.4 K/uL (1.8-7.7); NEUTROPHILS % (AUTO) 66.5 % (40.0-70.0); PLATELET COUNT (AUTO) 344 K/uL (150-450); RED CELL DISTRIBUTION WIDTH 12.9 % (11.5-14.5)
[2017-06-29 16:31] LABS: ANION GAP 9 mmol/L (8-16); CALCIUM, TOTAL 8.9 mg/dL (8.8-10.5); CARBON DIOXIDE 24 mmol/L (22-29); CHLORIDE 104 mmol/L (98-107); CREATININE 0.86 mg/dL (0.60-1.30); GLOMERULAR FILTR. RATE CALC > 60 mL/min (>60); GLUCOSE,RANDOM 108 mg/dL (70-110); POTASSIUM 3.6 mmol/L (3.5-5.1); SODIUM SERUM 137 mmol/L (136-145); UREA NITROGEN, BLOOD 10 mg/dL (7-18)
[2017-06-29 16:36] LABS: ALANINE AMINOTRANSFERASE 53 U/L (12-78); ALBUMIN 3.2 g/dL (3.4-5.0); ALKALINE PHOSPHATASE 80 U/L (46-116); ASPARTATE AMINOTRANSFERASE 20 U/L (15-37); BILIRUBIN,TOTAL 0.2 mg/dL (0.1-1.0); TOTAL PROTEIN, SERUM 6.8 g/dL (6.4-8.2)
[2017-06-29 18:50] VITALS: BP 111/68
== END 2017-06-29 19:10 | disposition home or self-care (01) ==
LOC: EMS 15:37
DX: F25.9 Schizoaffective disorder, unspecified (principal); Z88.0 Allergy status to penicillin; Z79.899 Other long term (current) drug therapy; Z98.51 Tubal ligation status
CPT/HCPCS: 36415; 80053; 84484; 85025; 93005; 99285; G0480

== ENCOUNTER 2017-07-09 15:10 | Inpatient (IN) | payer MEDICAID, OTHER ==
[~2017-07-09] VITALS: Ht 162.6 cm; Wt 94.3 kg
[2017-07-09] MEDS ORDERED: HALOPERIDOL 5 MG TABLET PO PRN (16:30)
[2017-07-09] MEDS ORDERED: ZOLPIDEM TARTRATE 10 MG TABLET PO PRN (16:30)
[2017-07-09 19:01] VITALS: BP 127/68
[2017-07-10] MEDS ORDERED: INFLUENZA VIRUS VACCINE QVS 2017-18 (3YR+)/PF 60 MCG/0.5 ML SYRINGE IM ONE (03:00)
[2017-07-10 06:24] VITALS: BP 107/61
[2017-07-10 08:28] VITALS: BP 121/73
[2017-07-10] MEDS: LevETIRAcetam 500 MG TABLET PO SCH ×2 (08:52→17:23)
[2017-07-10] MEDS: BACITRACIN 28.4 GM OINTMENT TP SCH ×2 (08:52→17:23)
[2017-07-10 09:06] LABS: CHOL/HDL RATIO 3.9 (3.9-5.7)
[2017-07-10] MEDS: LORazepam 2 MG TABLET PO PRN ×2 (12:16→17:23)
[2017-07-10 16:38] VITALS: BP 111/61
[2017-07-10 18:00] VITALS: BP 128/89
[2017-07-10] MEDS ORDERED: ONDANSETRON HCL 4 MG TABLET PO PRN (18:15)
[2017-07-11] MEDS: MAG HYDROX/AL HYDROX/SIMETH ES 30 ML SUSPENSION UDCUP PO PRN ×2 (05:22→12:13)
[2017-07-11 06:21] VITALS: BP 112/72
[2017-07-11] MEDS: VENLAFAXINE HCL 75 MG ER CAPSULE PO SCH (08:22)
[2017-07-11] MEDS: BACITRACIN 28.4 GM OINTMENT TP SCH ×2 (08:22→16:42)
[2017-07-11] MEDS: LevETIRAcetam 500 MG TABLET PO SCH ×2 (08:22→16:42)
[2017-07-11] MEDS: LORazepam 2 MG TABLET PO PRN ×2 (08:22→16:43)
[2017-07-11] MEDS ORDERED: ARIPiprazole 15 MG TABLET PO SCH (11:00)
[2017-07-11 16:24] VITALS: BP 130/78
[2017-07-12 02:00] VITALS: BP 108/65
[2017-07-12] MEDS: MAG HYDROX/AL HYDROX/SIMETH ES 30 ML SUSPENSION UDCUP PO PRN (02:02)
[2017-07-12 08:24] VITALS: BP 122/59
[2017-07-12] MEDS: VENLAFAXINE HCL 75 MG ER CAPSULE PO SCH (08:27)
[2017-07-12] MEDS: LevETIRAcetam 500 MG TABLET PO SCH (08:27)
[2017-07-12] MEDS: BACITRACIN 28.4 GM OINTMENT TP SCH (08:27)
[2017-07-12] MEDS: LORazepam 2 MG TABLET PO PRN (10:33)
[2017-07-12] MEDS ORDERED: VENL75CA55 PO (11:16)
[2017-08-02] MEDS ORDERED: ARIPiprazole LAUROXIL ER SUSPENSION 882 MG/3.2 ML SYRINGE IM SCH (09:00)
== END 2017-07-12 13:42 | disposition home or self-care (01) | DRG 750 ==
LOC: EMS 15:12 → B3A 17:43
PROVIDERS: ADMIT Psychiatry & Neurology Child & Adolescent Psychiatry; ATTEND Psychiatry & Neurology Child & Adolescent Psychiatry
DX: F25.1 Schizoaffective disorder, depressive type (principal); R45.851 Suicidal ideations; G40.909 Epilepsy, unspecified, not intractable, without status epilepticus; M10.9 Gout, unspecified; G47.00 Insomnia, unspecified; S60.811A Abrasion of right wrist, initial encounter; F41.9 Anxiety disorder, unspecified; Z79.899 Other long term (current) drug therapy; X83.8XXA Intentional self-harm by other specified means, initial encounter; Y93.89 Activity, other specified; Y92.89 Other specified places as the place of occurrence of the external cause; Y99.8 Other external cause status; Z88.0 Allergy status to penicillin
CPT/HCPCS: 87081; 90471; 99285; Q0162

== ENCOUNTER 2017-09-02 23:30 | Emergency (ER) | payer MEDICAID, OTHER ==
[~2017-09-02] VITALS: Ht 162.6 cm; Wt 90.9 kg
[~2017-09-02 23:30] MED LIST changes: +ARIP15TA2 PO; +ARIP20TA PO; +ESCI5TAB PO; +VENL75CA55 PO
[2017-09-03 01:15] LABS: BASOPHILS % (AUTO) 0.2 % (0.0-2.0); HEMATOCRIT 40.5 % (36-46); HEMOGLOBIN 13.6 g/dL (12.0-16.0); LYMPHOCYTES # (AUTO) 1.9 K/uL (1.0-4.8); LYMPHOCYTES % (AUTO) 17.4 % (22.0-44.0); MEAN CORPUSCULAR HEMOGLOBIN 29.5 pg (26.0-34.0); MEAN CORPUSCULAR HGB CONC 33.6 G/dL (31.0-37.0); MEAN CORPUSCULAR VOLUME 88 fL (80-100); MONOCYTES % (AUTO) 9.4 % (2.0-9.0); PLATELET COUNT (AUTO) 359 K/uL (150-450); RED BLOOD CELL COUNT(AUTO) 4.62 MIL/uL (4.00-5.20); RED CELL DISTRIBUTION WIDTH 12.7 % (11.5-14.5)
[2017-09-03 01:20] LABS: AMPHET/METH SCREEN,URINE NEGATIVE (NEGATIVE); BARBITURATE SCREEN, URINE NEGATIVE (NEGATIVE); BENZODIAZEPINES SCREEN,URINE NEGATIVE (NEGATIVE); CANNABINOID SCREEN,URINE NEGATIVE (NEGATIVE); COCAINE SCREEN,URINE NEGATIVE (NEGATIVE); METHADONE SCREEN, URINE NEGATIVE (NEGATIVE); OPIATE SCREEN,URINE NEGATIVE (NEGATIVE)
[2017-09-03 01:21] LABS: PHENCYCLIDINE SCREEN,URINE NEGATIVE (NEGATIVE)
[2017-09-03 01:22] LABS: ANION GAP 6 mmol/L (8-16); CALCIUM, TOTAL 9.2 mg/dL (8.8-10.5); CARBON DIOXIDE 28 mmol/L (22-29); CHLORIDE 101 mmol/L (98-107); CREATININE 0.94 mg/dL (0.60-1.30); GLOMERULAR FILTR. RATE CALC > 60 mL/min (>60); GLUCOSE,RANDOM 96 mg/dL (70-110); POTASSIUM 3.5 mmol/L (3.5-5.1); SODIUM SERUM 135 mmol/L (136-145); UREA NITROGEN, BLOOD 15 mg/dL (7-18)
[2017-09-03 01:28] LABS: ALANINE AMINOTRANSFERASE 88 U/L (12-78); ALBUMIN 3.5 g/dL (3.4-5.0); ALKALINE PHOSPHATASE 85 U/L (46-116); ASPARTATE AMINOTRANSFERASE 28 U/L (15-37); BILIRUBIN,TOTAL 0.1 mg/dL (0.1-1.0); TOTAL PROTEIN, SERUM 7.3 g/dL (6.4-8.2)
[2017-09-03 05:27] VITALS: BP 125/67
== END 2017-09-03 06:06 | disposition home or self-care (01) ==
LOC: EMS 23:31
DX: F20.9 Schizophrenia, unspecified (principal); F41.9 Anxiety disorder, unspecified; F31.9 Bipolar disorder, unspecified; Z88.0 Allergy status to penicillin
CPT/HCPCS: 36415; 80053; 80307; 84703; 85025; 99285; G0480

== ENCOUNTER 2017-09-17 20:47 | Emergency (ER) | payer OTHER ==
[~2017-09-17] VITALS: Ht 162.6 cm; Wt 90.9 kg
[~2017-09-17 20:47] MED LIST changes: -ARIP15TA2 PO
[2017-09-17 21:21] LABS: BASOPHILS % (AUTO) 0.6 % (0.0-2.0); HEMATOCRIT 39.7 % (36-46); HEMOGLOBIN 13.7 g/dL (12.0-16.0); LYMPHOCYTES # (AUTO) 2.3 K/uL (1.0-4.8); LYMPHOCYTES % (AUTO) 29.9 % (22.0-44.0); MEAN CORPUSCULAR HEMOGLOBIN 30.3 pg (26.0-34.0); MEAN CORPUSCULAR HGB CONC 34.4 G/dL (31.0-37.0); MEAN CORPUSCULAR VOLUME 88 fL (80-100); MONOCYTES # (AUTO) 0.8 K/uL (0.1-1.0); MONOCYTES % (AUTO) 10.3 % (2.0-9.0); NEUTROPHILS # (AUTO) 4.2 K/uL (1.8-7.7); NEUTROPHILS % (AUTO) 56.2 % (40.0-70.0); PLATELET COUNT (AUTO) 352 K/uL (150-450); RED BLOOD CELL COUNT(AUTO) 4.51 MIL/uL (4.00-5.20); RED CELL DISTRIBUTION WIDTH 12.8 % (11.5-14.5)
[2017-09-17 21:28] LABS: AMPHET/METH SCREEN,URINE NEGATIVE (NEGATIVE); BARBITURATE SCREEN, URINE NEGATIVE (NEGATIVE); BENZODIAZEPINES SCREEN,URINE NEGATIVE (NEGATIVE); CANNABINOID SCREEN,URINE NEGATIVE (NEGATIVE); COCAINE SCREEN,URINE NEGATIVE (NEGATIVE); METHADONE SCREEN, URINE NEGATIVE (NEGATIVE); OPIATE SCREEN,URINE NEGATIVE (NEGATIVE)
[2017-09-17 21:29] LABS: ANION GAP 9 mmol/L (8-16); CALCIUM, TOTAL 8.9 mg/dL (8.8-10.5); CARBON DIOXIDE 26 mmol/L (22-29); CHLORIDE 106 mmol/L (98-107); CREATININE 0.94 mg/dL (0.60-1.30); GLOMERULAR FILTR. RATE CALC > 60 mL/min (>60); GLUCOSE,RANDOM 100 mg/dL (70-110); POTASSIUM 3.7 mmol/L (3.5-5.1); SODIUM SERUM 141 mmol/L (136-145); UREA NITROGEN, BLOOD 9 mg/dL (7-18)
[2017-09-17 21:29] LABS: PHENCYCLIDINE SCREEN,URINE NEGATIVE (NEGATIVE)
[2017-09-17] MEDS ORDERED: HALOPERIDOL 5 MG TABLET PO ONE (21:30)
[2017-09-17] MEDS ORDERED: LORazepam 2 MG TABLET PO ONE (21:30)
[2017-09-17] MEDS ORDERED: DiphenhydrAMINE HCL 25 MG CAPSULE PO ONE (21:30)
[2017-09-17 21:36] LABS: ALANINE AMINOTRANSFERASE 33 U/L (12-78); ALBUMIN 3.3 g/dL (3.4-5.0); ALKALINE PHOSPHATASE 69 U/L (46-116); ASPARTATE AMINOTRANSFERASE 15 U/L (15-37); BILIRUBIN,TOTAL 0.2 mg/dL (0.1-1.0); TOTAL PROTEIN, SERUM 7.3 g/dL (6.4-8.2)
[2017-09-18 00:08] VITALS: BP 114/68
== END 2017-09-18 00:49 | disposition home or self-care (01) ==
LOC: EMS 20:49
DX: F32.9 Major depressive disorder, single episode, unspecified (principal); F43.9 Reaction to severe stress, unspecified; R41.82 Altered mental status, unspecified; F41.9 Anxiety disorder, unspecified; F20.9 Schizophrenia, unspecified; Z88.0 Allergy status to penicillin
CPT/HCPCS: 36415; 80053; 80307; 84703; 85025; 99285; G0480

== ENCOUNTER 2017-10-01 12:00 | Inpatient (IN) | payer MEDICAID, OTHER ==
[~2017-10-01] VITALS: Ht 162.6 cm; Wt 90.3 kg
[2017-10-01 12:35] LABS: AMPHET/METH SCREEN,URINE NEGATIVE (NEGATIVE); BARBITURATE SCREEN, URINE NEGATIVE (NEGATIVE); BENZODIAZEPINES SCREEN,URINE NEGATIVE (NEGATIVE); CANNABINOID SCREEN,URINE NEGATIVE (NEGATIVE); COCAINE SCREEN,URINE NEGATIVE (NEGATIVE); METHADONE SCREEN, URINE NEGATIVE (NEGATIVE); OPIATE SCREEN,URINE NEGATIVE (NEGATIVE); PHENCYCLIDINE SCREEN,URINE NEGATIVE (NEGATIVE)
[2017-10-01 13:19] LABS: BASOPHILS % (AUTO) 0.3 % (0.0-2.0); EOSINOPHILS % (AUTO) 2.7 % (1.0-6.0); HEMATOCRIT 38.9 % (36-46); HEMOGLOBIN 13.2 g/dL (12.0-16.0); LYMPHOCYTES # (AUTO) 1.6 K/uL (1.0-4.8); LYMPHOCYTES % (AUTO) 22.3 % (22.0-44.0); MEAN CORPUSCULAR HEMOGLOBIN 29.9 pg (26.0-34.0); MEAN CORPUSCULAR HGB CONC 34.1 G/dL (31.0-37.0); MEAN CORPUSCULAR VOLUME 88 fL (80-100); MONOCYTES # (AUTO) 0.6 K/uL (0.1-1.0); NEUTROPHILS # (AUTO) 4.7 K/uL (1.8-7.7); NEUTROPHILS % (AUTO) 65.7 % (40.0-70.0); PLATELET COUNT (AUTO) 376 K/uL (150-450); RED BLOOD CELL COUNT(AUTO) 4.43 MIL/uL (4.00-5.20); RED CELL DISTRIBUTION WIDTH 12.8 % (11.5-14.5)
[2017-10-01 13:31] LABS: ANION GAP 6 mmol/L (8-16); CARBON DIOXIDE 28 mmol/L (22-29); CHLORIDE 107 mmol/L (98-107); CREATININE 0.82 mg/dL (0.60-1.30); GLOMERULAR FILTR. RATE CALC > 60 mL/min (>60); GLUCOSE,RANDOM 88 mg/dL (70-110); POTASSIUM 3.8 mmol/L (3.5-5.1); SODIUM SERUM 141 mmol/L (136-145); UREA NITROGEN, BLOOD 10 mg/dL (7-18)
[2017-10-01 13:37] LABS: ALANINE AMINOTRANSFERASE 67 U/L (12-78); ALBUMIN 3.3 g/dL (3.4-5.0); ALKALINE PHOSPHATASE 69 U/L (46-116); ASPARTATE AMINOTRANSFERASE 22 U/L (15-37); BILIRUBIN,TOTAL 0.3 mg/dL (0.1-1.0); TOTAL PROTEIN, SERUM 6.9 g/dL (6.4-8.2)
[2017-10-01 21:06] VITALS: BP 105/70
[2017-10-01] MEDS: ZOLPIDEM TARTRATE 10 MG TABLET PO PRN (22:21)
[2017-10-02 06:47] VITALS: BP 105/61
[2017-10-02 08:35] VITALS: BP 101/61
[2017-10-02 08:55] LABS: BASOPHILS % (AUTO) 0.2 % (0.0-2.0); EOSINOPHILS % (AUTO) 3.8 % (1.0-6.0); HEMATOCRIT 38.5 % (36-46); HEMOGLOBIN 13.5 g/dL (12.0-16.0); LYMPHOCYTES # (AUTO) 1.9 K/uL (1.0-4.8); MEAN CORPUSCULAR HEMOGLOBIN 30.7 pg (26.0-34.0); MEAN CORPUSCULAR HGB CONC 35.1 G/dL (31.0-37.0); MEAN CORPUSCULAR VOLUME 87 fL (80-100); MONOCYTES # (AUTO) 0.7 K/uL (0.1-1.0); MONOCYTES % (AUTO) 11.4 % (2.0-9.0); NEUTROPHILS # (AUTO) 3.7 K/uL (1.8-7.7); NEUTROPHILS % (AUTO) 55.6 % (40.0-70.0); PLATELET COUNT (AUTO) 363 K/uL (150-450); RED CELL DISTRIBUTION WIDTH 12.3 % (11.5-14.5)
[2017-10-02] MEDS: HALOPERIDOL 5 MG TABLET PO PRN ×2 (09:29→16:42)
[2017-10-02] MEDS: LORazepam 2 MG TABLET PO PRN ×2 (09:29→16:42)
[2017-10-02] MEDS: LevETIRAcetam 500 MG TABLET PO SCH ×2 (09:32→16:41)
[2017-10-02 09:48] LABS: ALANINE AMINOTRANSFERASE 59 U/L (12-78); ALBUMIN 3.3 g/dL (3.4-5.0); ALKALINE PHOSPHATASE 70 U/L (46-116); ANION GAP 9 mmol/L (8-16); ASPARTATE AMINOTRANSFERASE 22 U/L (15-37); BILIRUBIN,TOTAL 0.4 mg/dL (0.1-1.0); CALCIUM, TOTAL 8.7 mg/dL (8.8-10.5); CARBON DIOXIDE 26 mmol/L (22-29); CHLORIDE 105 mmol/L (98-107); CREATININE 0.75 mg/dL (0.60-1.30); FREE T4 (FREE THYROXINE) 0.86 ng/dL (0.76-1.46); GLOMERULAR FILTR. RATE CALC > 60 mL/min (>60); GLUCOSE,RANDOM 92 mg/dL (70-110); POTASSIUM 3.4 mmol/L (3.5-5.1); SODIUM SERUM 140 mmol/L (136-145); TOTAL PROTEIN, SERUM 7.1 g/dL (6.4-8.2); UREA NITROGEN, BLOOD 9 mg/dL (7-18)
[2017-10-02] MEDS ORDERED: POTASSIUM CHLORIDE 20 MEQ ER TABLET PO ONE (13:15)
[2017-10-02] MEDS ORDERED: ACETAMINOPHEN 325 MG TABLET PO PRN (16:15)
[2017-10-02 16:35] VITALS: BP 109/65
[2017-10-02] MEDS: ARIPiprazole 15 MG TABLET PO SCH (16:42)
[2017-10-03 08:13] VITALS: BP 102/56
[2017-10-03 09:09] LABS: ALANINE AMINOTRANSFERASE 50 U/L (12-78); ALBUMIN 3.2 g/dL (3.4-5.0); ALKALINE PHOSPHATASE 62 U/L (46-116); ANION GAP 8 mmol/L (8-16); ASPARTATE AMINOTRANSFERASE 19 U/L (15-37); BILIRUBIN,TOTAL 0.2 mg/dL (0.1-1.0); CALCIUM, TOTAL 8.9 mg/dL (8.8-10.5); CARBON DIOXIDE 25 mmol/L (22-29); CHLORIDE 106 mmol/L (98-107); CREATININE 0.73 mg/dL (0.60-1.30); GLOMERULAR FILTR. RATE CALC > 60 mL/min (>60); GLUCOSE,RANDOM 82 mg/dL (70-110); POTASSIUM 3.7 mmol/L (3.5-5.1); SODIUM SERUM 139 mmol/L (136-145); TOTAL PROTEIN, SERUM 7.1 g/dL (6.4-8.2); UREA NITROGEN, BLOOD 11 mg/dL (7-18)
[2017-10-03] MEDS: LevETIRAcetam 500 MG TABLET PO SCH ×2 (09:24→17:03)
[2017-10-03] MEDS: ARIPiprazole 15 MG TABLET PO SCH ×2 (09:24→17:03)
[2017-10-03] MEDS: VENLAFAXINE HCL 75 MG ER CAPSULE PO SCH (09:24)
[2017-10-03] MEDS ORDERED: DiphenhydrAMINE HCL 50 MG/ML VIAL IM ONE (15:45)
[2017-10-03] MEDS ORDERED: HALOPERIDOL LACTATE 5 MG/ML VIAL IM ONE (15:45)
[2017-10-03] MEDS ORDERED: HALOPERIDOL LACTATE 5 MG/ML VIAL ONE (15:46)
[2017-10-03 16:00] VITALS: BP 110/60
[2017-10-03] MEDS: LORazepam 2 MG TABLET PO PRN (18:10)
[2017-10-04 06:29] VITALS: BP 101/65
[2017-10-04] MEDS: LORazepam 2 MG TABLET PO PRN ×2 (06:36→14:41)
[2017-10-04] MEDS: ARIPiprazole 15 MG TABLET PO SCH ×2 (08:35→16:13)
[2017-10-04] MEDS: VENLAFAXINE HCL 75 MG ER CAPSULE PO SCH (08:35)
[2017-10-04] MEDS: LevETIRAcetam 500 MG TABLET PO SCH ×2 (08:35→16:13)
[2017-10-04 08:51] VITALS: BP 100/56
[2017-10-04] MEDS: HALOPERIDOL 5 MG TABLET PO PRN ×2 (08:56→16:13)
[2017-10-04 16:17] VITALS: BP 124/73
[2017-10-05 06:31] VITALS: BP 110/61
[2017-10-05 08:26] VITALS: BP 104/61
[2017-10-05] MEDS: LevETIRAcetam 500 MG TABLET PO SCH ×2 (10:38→16:58)
[2017-10-05] MEDS: VENLAFAXINE HCL 75 MG ER CAPSULE PO SCH (10:38)
[2017-10-05] MEDS: HALOPERIDOL 5 MG TABLET PO PRN (10:38)
[2017-10-05] MEDS: LORazepam 2 MG TABLET PO PRN ×2 (10:38→16:36)
[2017-10-05] MEDS: ARIPiprazole 15 MG TABLET PO SCH ×2 (10:38→16:58)
[2017-10-05 16:00] VITALS: BP 120/67
[2017-10-06 01:28] VITALS: BP 122/68
[2017-10-06 08:21] VITALS: BP 127/71
[2017-10-06] MEDS: VENLAFAXINE HCL 75 MG ER CAPSULE PO SCH (08:25)
[2017-10-06] MEDS: HALOPERIDOL 5 MG TABLET PO PRN ×2 (08:25→16:20)
[2017-10-06] MEDS: ARIPiprazole 15 MG TABLET PO SCH ×2 (08:25→16:20)
[2017-10-06] MEDS: LevETIRAcetam 500 MG TABLET PO SCH ×2 (08:25→16:20)
[2017-10-06] MEDS: LORazepam 2 MG TABLET PO PRN ×2 (08:25→17:30)
[2017-10-06] MEDS ORDERED: ALBUTEROL SULFATE HFA 90 MCG/PUFF 8 GM INHALER IH PRN (10:30)
[2017-10-06 16:45] VITALS: BP 126/73
[2017-10-06] MEDS: ZOLPIDEM TARTRATE 10 MG TABLET PO PRN (20:47)
[2017-10-07 00:17] VITALS: BP 121/67
[2017-10-07 08:20] VITALS: BP 103/62
[2017-10-07] MEDS: VENLAFAXINE HCL 75 MG ER CAPSULE PO SCH (08:37)
[2017-10-07] MEDS: HALOPERIDOL 5 MG TABLET PO PRN ×2 (08:38→16:54)
[2017-10-07] MEDS: ARIPiprazole 15 MG TABLET PO SCH ×2 (08:38→16:54)
[2017-10-07] MEDS: LevETIRAcetam 500 MG TABLET PO SCH ×2 (08:38→16:54)
[2017-10-07] MEDS: LORazepam 2 MG TABLET PO PRN ×2 (08:38→17:21)
[2017-10-07 16:27] VITALS: BP 113/66
[2017-10-07 17:21] VITALS: BP 122/63
[2017-10-07] MEDS: IBUPROFEN 400 MG TABLET PO PRN (17:21)
[2017-10-07] MEDS: ZOLPIDEM TARTRATE 10 MG TABLET PO PRN (20:01)
[2017-10-08 05:22] VITALS: BP 124/71
[2017-10-08] MEDS: LevETIRAcetam 500 MG TABLET PO SCH ×2 (08:15→16:01)
[2017-10-08] MEDS: ARIPiprazole 15 MG TABLET PO SCH ×2 (08:15→16:01)
[2017-10-08] MEDS: HALOPERIDOL 5 MG TABLET PO PRN ×2 (08:15→17:03)
[2017-10-08] MEDS: LORazepam 2 MG TABLET PO PRN ×2 (08:15→17:03)
[2017-10-08] MEDS: VENLAFAXINE HCL 75 MG ER CAPSULE PO SCH (08:18)
[2017-10-08 08:27] VITALS: BP 124/73
[2017-10-08 16:00] VITALS: BP 119/69
[2017-10-08] MEDS: IBUPROFEN 400 MG TABLET PO PRN (16:01)
[2017-10-08] MEDS: ZOLPIDEM TARTRATE 10 MG TABLET PO PRN (21:17)
[2017-10-09 06:38] VITALS: BP 117/68
[2017-10-09] MEDS: ARIPiprazole 15 MG TABLET PO SCH ×2 (08:20→16:11)
[2017-10-09] MEDS: VENLAFAXINE HCL 75 MG ER CAPSULE PO SCH (08:20)
[2017-10-09] MEDS: LevETIRAcetam 500 MG TABLET PO SCH ×2 (08:20→16:11)
[2017-10-09 08:29] VITALS: BP 103/75
[2017-10-09] MEDS: HALOPERIDOL 5 MG TABLET PO PRN (09:52)
[2017-10-09] MEDS: LORazepam 2 MG TABLET PO PRN (09:52)
[2017-10-09] MEDS: IBUPROFEN 400 MG TABLET PO PRN (12:29)
[2017-10-09] MEDS ORDERED: ARIP15TA2 PO (16:43)
[2017-10-09] MEDS ORDERED: LEVE500T53 PO (16:43)
[2017-10-09] MEDS ORDERED: VENL25TA47 PO (16:43)
== END 2017-10-09 17:30 | disposition home or self-care (01) | DRG 750 ==
LOC: EMS 12:01 → B3A 19:09
PROVIDERS: ADMIT Psychiatry & Neurology Child & Adolescent Psychiatry; ATTEND Psychiatry & Neurology Child & Adolescent Psychiatry
DX: F25.1 Schizoaffective disorder, depressive type (principal); E44.1 Mild protein-calorie malnutrition; R45.851 Suicidal ideations; F60.3 Borderline personality disorder; E83.51 Hypocalcemia; E87.6 Hypokalemia; M10.9 Gout, unspecified; R45.87 Impulsiveness; F31.9 Bipolar disorder, unspecified; F41.9 Anxiety disorder, unspecified; G40.909 Epilepsy, unspecified, not intractable, without status epilepticus; Z79.899 Other long term (current) drug therapy; Z88.0 Allergy status to penicillin; Z91.5 Personal history of self-harm
CPT/HCPCS: 84439; 84443; 99285; G0480; J1200; J1630; J3535

== ENCOUNTER 2017-10-21 18:09 | Inpatient (IN) | payer MEDICAID, OTHER ==
[~2017-10-21] VITALS: Ht 162.6 cm; Wt 89.2 kg
[~2017-10-21 18:09] MED LIST changes: +ARIP15TA2 PO; -ARIP20TA PO; -ARIP882S IM; -ESCI5TAB PO; +VENL25TA47 PO; -VENL75CA55 PO
[2017-10-21 19:03] LABS: BASOPHILS % (AUTO) 0.2 % (0.0-2.0); EOSINOPHILS % (AUTO) 4.3 % (1.0-6.0); HEMATOCRIT 39.9 % (36-46); HEMOGLOBIN 13.9 g/dL (12.0-16.0); LYMPHOCYTES % (AUTO) 31.2 % (22.0-44.0); MEAN CORPUSCULAR HEMOGLOBIN 30.7 pg (26.0-34.0); MEAN CORPUSCULAR VOLUME 88 fL (80-100); MONOCYTES # (AUTO) 0.7 K/uL (0.1-1.0); MONOCYTES % (AUTO) 10.2 % (2.0-9.0); NEUTROPHILS # (AUTO) 3.5 K/uL (1.8-7.7); NEUTROPHILS % (AUTO) 54.1 % (40.0-70.0); PLATELET COUNT (AUTO) 327 K/uL (150-450); RED BLOOD CELL COUNT(AUTO) 4.54 MIL/uL (4.00-5.20)
[2017-10-21 19:11] LABS: ANION GAP 7 mmol/L (8-16); CALCIUM, TOTAL 9.1 mg/dL (8.8-10.5); CARBON DIOXIDE 28 mmol/L (22-29); CHLORIDE 105 mmol/L (98-107); CREATININE 0.93 mg/dL (0.60-1.30); GLOMERULAR FILTR. RATE CALC > 60 mL/min (>60); GLUCOSE,RANDOM 97 mg/dL (70-110); POTASSIUM 3.9 mmol/L (3.5-5.1); SODIUM SERUM 140 mmol/L (136-145); UREA NITROGEN, BLOOD 14 mg/dL (7-18)
[2017-10-21 19:16] LABS: ALANINE AMINOTRANSFERASE 39 U/L (12-78); ALBUMIN 3.4 g/dL (3.4-5.0); ALKALINE PHOSPHATASE 73 U/L (46-116); ASPARTATE AMINOTRANSFERASE 14 U/L (15-37); BILIRUBIN,TOTAL 0.2 mg/dL (0.1-1.0); TOTAL PROTEIN, SERUM 7.3 g/dL (6.4-8.2)
[2017-10-21] MEDS ORDERED: HALOPERIDOL 5 MG TABLET PO ONE (19:30)
[2017-10-21] MEDS ORDERED: LORazepam 2 MG TABLET PO ONE (19:30)
[2017-10-21 20:02] LABS: AMPHET/METH SCREEN,URINE NEGATIVE (NEGATIVE); BARBITURATE SCREEN, URINE NEGATIVE (NEGATIVE); BENZODIAZEPINES SCREEN,URINE NEGATIVE (NEGATIVE); CANNABINOID SCREEN,URINE NEGATIVE (NEGATIVE); COCAINE SCREEN,URINE NEGATIVE (NEGATIVE); METHADONE SCREEN, URINE NEGATIVE (NEGATIVE); OPIATE SCREEN,URINE NEGATIVE (NEGATIVE)
[2017-10-21 20:04] LABS: PHENCYCLIDINE SCREEN,URINE NEGATIVE (NEGATIVE)
[2017-10-21 20:20] LABS: HCG,QUANTITATIVE < 1 mIU/mL (0-6)
[2017-10-21 20:29] LABS: APPEARANCE,URINE CLOUDY (CLEAR); BILIRUBIN,URINE NEGATIVE (NEGATIVE); GLUCOSE, URINE (UA) NEGATIVE (NEGATIVE); KETONES,URINE NEGATIVE (NEGATIVE); LEUKOCYTE ESTERASE ,URINE SMALL (NEGATIVE); NITRATE,URINE NEGATIVE (NEGATIVE); OCCULT BLOOD,URINE LARGE (NEGATIVE); PROTEIN,URINE TRACE (NEGATIVE); UROBILINOGEN,URINE 0.2 mg/dL (<=1.0)
[2017-10-21 20:44] LABS: RBC,URINE 26-50 /HPF (0-2)
[2017-10-21 20:45] LABS: BACTERIA,URINE Few /HPF (None Seen); SQUAMOUS EPITHELIAL CELL,UR Moderate /LPF (None Seen)
[2017-10-21 22:10] VITALS: BP 102/71
[2017-10-22 06:23] VITALS: BP 110/76
[2017-10-22] MEDS: LevETIRAcetam 500 MG TABLET PO SCH ×2 (08:16→16:03)
[2017-10-22] MEDS: NYSTATIN 15 GM POWDER BOTTLE TP SCH ×3 (08:17→16:04)
[2017-10-22] MEDS: VENLAFAXINE HCL 75 MG ER CAPSULE PO SCH (09:59)
[2017-10-22] MEDS: ARIPiprazole 15 MG TABLET PO SCH ×2 (09:59→16:03)
[2017-10-22] MEDS: LORazepam 2 MG TABLET PO PRN (14:56)
[2017-10-22] MEDS: HALOPERIDOL 5 MG TABLET PO PRN (14:56)
[2017-10-22 16:27] VITALS: BP 118/66
[2017-10-22] MEDS: ZOLPIDEM TARTRATE 10 MG TABLET PO PRN (21:19)
[2017-10-23 01:30] VITALS: BP 131/64
[2017-10-23] MEDS: NYSTATIN 15 GM POWDER BOTTLE TP SCH ×2 (08:12→17:24)
[2017-10-23] MEDS: LevETIRAcetam 500 MG TABLET PO SCH ×2 (08:12→17:24)
[2017-10-23] MEDS: ARIPiprazole 15 MG TABLET PO SCH ×2 (08:12→17:24)
[2017-10-23] MEDS: VENLAFAXINE HCL 75 MG ER CAPSULE PO SCH (08:12)
[2017-10-23 08:26] LABS: CHOL/HDL RATIO 4.1 (3.9-5.7)
[2017-10-23] MEDS: HALOPERIDOL 5 MG TABLET PO PRN (12:25)
[2017-10-23] MEDS: LORazepam 2 MG TABLET PO PRN ×2 (12:25→21:05)
[2017-10-23 12:42] VITALS: BP 128/64
[2017-10-23] MEDS ORDERED: ARIPiprazole LAUROXIL ER SUSPENSION 882 MG/3.2 ML SYRINGE IM SCH (16:00)
[2017-10-23 16:19] VITALS: BP 116/69
[2017-10-23] MEDS: CIPROFLOXACIN HCL 500 MG TABLET PO SCH (17:24)
[2017-10-23 17:53] VITALS: BP 109/69
[2017-10-23] MEDS: ZOLPIDEM TARTRATE 10 MG TABLET PO PRN (21:05)
[2017-10-24 06:49] VITALS: BP 100/70
[2017-10-24] MEDS: ARIPiprazole 15 MG TABLET PO SCH ×2 (08:09→16:17)
[2017-10-24] MEDS: LevETIRAcetam 500 MG TABLET PO SCH ×2 (08:09→16:18)
[2017-10-24] MEDS: VENLAFAXINE HCL 75 MG ER CAPSULE PO SCH (08:09)
[2017-10-24] MEDS: CIPROFLOXACIN HCL 500 MG TABLET PO SCH ×2 (08:10→16:18)
[2017-10-24] MEDS: NYSTATIN 15 GM POWDER BOTTLE TP SCH ×2 (08:11→16:18)
[2017-10-24 08:18] VITALS: BP 109/76
[2017-10-24] MEDS: LORazepam 2 MG TABLET PO PRN ×2 (08:43→16:18)
[2017-10-24] MEDS: HALOPERIDOL 5 MG TABLET PO PRN ×2 (08:43→16:18)
[2017-10-24 16:05] VITALS: BP 108/63
[2017-10-25] MEDS: ZOLPIDEM TARTRATE 10 MG TABLET PO PRN ×2 (00:23→20:51)
[2017-10-25 05:25] VITALS: BP 110/70
[2017-10-25 08:33] VITALS: BP 120/78
[2017-10-25] MEDS: CIPROFLOXACIN HCL 500 MG TABLET PO SCH ×2 (09:27→16:18)
[2017-10-25] MEDS: VENLAFAXINE HCL 75 MG ER CAPSULE PO SCH (09:27)
[2017-10-25] MEDS: LORazepam 2 MG TABLET PO PRN ×2 (09:27→17:18)
[2017-10-25] MEDS: LevETIRAcetam 500 MG TABLET PO SCH ×2 (09:27→16:18)
[2017-10-25] MEDS: NYSTATIN 15 GM POWDER BOTTLE TP SCH ×2 (09:28→16:18)
[2017-10-25] MEDS: HALOPERIDOL 5 MG TABLET PO PRN ×2 (09:28→17:18)
[2017-10-25] MEDS: ARIPiprazole 15 MG TABLET PO SCH ×2 (09:28→16:18)
[2017-10-25 16:21] VITALS: BP 111/76
[2017-10-26 06:09] VITALS: BP 108/61
[2017-10-26 08:10] VITALS: BP 123/68
[2017-10-26] MEDS: ARIPiprazole 15 MG TABLET PO SCH ×2 (08:17→17:17)
[2017-10-26] MEDS: VENLAFAXINE HCL 75 MG ER CAPSULE PO SCH (08:17)
[2017-10-26] MEDS: NYSTATIN 15 GM POWDER BOTTLE TP SCH ×2 (08:17→17:17)
[2017-10-26] MEDS: CIPROFLOXACIN HCL 500 MG TABLET PO SCH ×2 (08:17→17:17)
[2017-10-26] MEDS: LevETIRAcetam 500 MG TABLET PO SCH ×2 (08:17→17:17)
[2017-10-26] MEDS: HALOPERIDOL 5 MG TABLET PO PRN ×2 (10:09→16:14)
[2017-10-26] MEDS: LORazepam 2 MG TABLET PO PRN ×2 (10:09→16:14)
[2017-10-26 16:07] VITALS: BP 114/70
[2017-10-26] MEDS: ZOLPIDEM TARTRATE 10 MG TABLET PO PRN (21:29)
[2017-10-27 01:10] VITALS: BP 112/64
[2017-10-27] MEDS: LORazepam 2 MG TABLET PO PRN ×3 (01:11→17:36)
[2017-10-27 08:05] VITALS: BP 100/60
[2017-10-27] MEDS: ARIPiprazole 15 MG TABLET PO SCH ×2 (08:24→17:36)
[2017-10-27] MEDS: CIPROFLOXACIN HCL 500 MG TABLET PO SCH ×2 (08:24→17:36)
[2017-10-27] MEDS: LevETIRAcetam 500 MG TABLET PO SCH ×2 (08:24→17:36)
[2017-10-27] MEDS: VENLAFAXINE HCL 75 MG ER CAPSULE PO SCH (08:24)
[2017-10-27] MEDS: NYSTATIN 15 GM POWDER BOTTLE TP SCH ×2 (08:25→17:36)
[2017-10-27 09:50] VITALS: BP 110/66
[2017-10-27] MEDS: HALOPERIDOL 5 MG TABLET PO PRN ×2 (09:55→17:36)
[2017-10-27 16:06] VITALS: BP 124/82
[2017-10-27] MEDS: ZOLPIDEM TARTRATE 10 MG TABLET PO PRN (21:30)
[2017-10-28 02:42] VITALS: BP 110/64
[2017-10-28 08:08] VITALS: BP 112/69
[2017-10-28] MEDS: CIPROFLOXACIN HCL 500 MG TABLET PO SCH ×2 (08:27→16:21)
[2017-10-28] MEDS: LORazepam 2 MG TABLET PO PRN ×3 (08:27→17:01)
[2017-10-28] MEDS: HALOPERIDOL 5 MG TABLET PO PRN ×3 (08:27→17:55)
[2017-10-28] MEDS: VENLAFAXINE HCL 75 MG ER CAPSULE PO SCH (08:27)
[2017-10-28] MEDS: NYSTATIN 15 GM POWDER BOTTLE TP SCH ×2 (08:27→16:21)
[2017-10-28] MEDS: ARIPiprazole 15 MG TABLET PO SCH ×2 (08:27→16:21)
[2017-10-28] MEDS: LevETIRAcetam 500 MG TABLET PO SCH ×2 (08:27→16:21)
[2017-10-28 16:17] VITALS: BP 118/72
[2017-10-28] MEDS: ZOLPIDEM TARTRATE 10 MG TABLET PO PRN (21:36)
[2017-10-29 05:18] VITALS: BP 116/63
[2017-10-29] MEDS: LORazepam 2 MG TABLET PO PRN (08:04)
[2017-10-29] MEDS: HALOPERIDOL 5 MG TABLET PO PRN (08:04)
[2017-10-29] MEDS: NYSTATIN 15 GM POWDER BOTTLE TP SCH (08:04)
[2017-10-29] MEDS: CIPROFLOXACIN HCL 500 MG TABLET PO SCH (08:04)
[2017-10-29] MEDS: ARIPiprazole 15 MG TABLET PO SCH (08:04)
[2017-10-29] MEDS: VENLAFAXINE HCL 75 MG ER CAPSULE PO SCH (08:04)
[2017-10-29] MEDS: LevETIRAcetam 500 MG TABLET PO SCH (08:04)
[2017-10-29 09:00] VITALS: BP 106/65
[2017-10-29] MEDS ORDERED: CIPR-278 PO (14:53)
== END 2017-10-29 15:20 | disposition home or self-care (01) | DRG 750 ==
LOC: EMS 18:10 → B3A 20:00
PROVIDERS: ADMIT Psychiatry & Neurology Child & Adolescent Psychiatry; ATTEND Psychiatry & Neurology Child & Adolescent Psychiatry
DX: F25.1 Schizoaffective disorder, depressive type (principal); G40.909 Epilepsy, unspecified, not intractable, without status epilepticus; R45.851 Suicidal ideations; M10.9 Gout, unspecified; F32.9 Major depressive disorder, single episode, unspecified; F41.9 Anxiety disorder, unspecified; Z88.0 Allergy status to penicillin; Z79.899 Other long term (current) drug therapy; Z98.51 Tubal ligation status
CPT/HCPCS: 87081; 87086; 99285; G0480; G0482

== ENCOUNTER 2017-11-21 18:37 | Inpatient (IN) | payer MEDICAID, OTHER ==
[~2017-11-21] VITALS: Ht 162.6 cm; Wt 88.3 kg
[~2017-11-21 18:37] MED LIST changes: +CIPR-278 PO
[2017-11-21 19:59] LABS: BASOPHILS % (AUTO) 0.5 % (0.0-2.0); EOSINOPHILS % (AUTO) 3.1 % (1.0-6.0); HEMOGLOBIN 13.6 g/dL (12.0-16.0); LYMPHOCYTES # (AUTO) 1.7 K/uL (1.0-4.8); LYMPHOCYTES % (AUTO) 18.8 % (22.0-44.0); MEAN CORPUSCULAR HGB CONC 34.9 G/dL (31.0-37.0); MEAN CORPUSCULAR VOLUME 89 fL (80-100); MONOCYTES % (AUTO) 10.7 % (2.0-9.0); NEUTROPHILS # (AUTO) 6.1 K/uL (1.8-7.7); NEUTROPHILS % (AUTO) 66.9 % (40.0-70.0); PLATELET COUNT (AUTO) 355 K/uL (150-450); RED BLOOD CELL COUNT(AUTO) 4.39 MIL/uL (4.00-5.20); RED CELL DISTRIBUTION WIDTH 13.1 % (11.5-14.5)
[2017-11-21 20:05] LABS: ANION GAP 5 mmol/L (8-16); CALCIUM, TOTAL 8.6 mg/dL (8.8-10.5); CARBON DIOXIDE 26 mmol/L (22-29); CHLORIDE 109 mmol/L (98-107); CREATININE 0.89 mg/dL (0.60-1.30); GLOMERULAR FILTR. RATE CALC > 60 mL/min (>60); GLUCOSE,RANDOM 91 mg/dL (70-110); POTASSIUM 4.1 mmol/L (3.5-5.1); SODIUM SERUM 140 mmol/L (136-145); UREA NITROGEN, BLOOD 10 mg/dL (7-18)
[2017-11-21 20:11] LABS: ALANINE AMINOTRANSFERASE 53 U/L (12-78); ALBUMIN 3.3 g/dL (3.4-5.0); ALKALINE PHOSPHATASE 85 U/L (46-116); ASPARTATE AMINOTRANSFERASE 20 U/L (15-37); BILIRUBIN,TOTAL 0.2 mg/dL (0.1-1.0); TOTAL PROTEIN, SERUM 7.3 g/dL (6.4-8.2)
[2017-11-21 21:04] LABS: AMPHET/METH SCREEN,URINE NEGATIVE (NEGATIVE); BARBITURATE SCREEN, URINE NEGATIVE (NEGATIVE); BENZODIAZEPINES SCREEN,URINE NEGATIVE (NEGATIVE); CANNABINOID SCREEN,URINE NEGATIVE (NEGATIVE); COCAINE SCREEN,URINE NEGATIVE (NEGATIVE); METHADONE SCREEN, URINE NEGATIVE (NEGATIVE); OPIATE SCREEN,URINE NEGATIVE (NEGATIVE)
[2017-11-21 21:08] LABS: PHENCYCLIDINE SCREEN,URINE NEGATIVE (NEGATIVE)
[2017-11-21] MEDS ORDERED: ZOLPIDEM TARTRATE 10 MG TABLET PO PRN (21:15)
[2017-11-22 01:52] VITALS: BP 125/78
[2017-11-22 08:00] VITALS: BP 110/57
[2017-11-22] MEDS: HALOPERIDOL 5 MG TABLET PO PRN (08:43)
[2017-11-22] MEDS: LORazepam 2 MG TABLET PO PRN (08:43)
[2017-11-22] MEDS ORDERED: VENL-67 PO (09:07)
[2017-11-22] MEDS ORDERED: IBUPROFEN 400 MG TABLET PO PRN (09:45)
[2017-11-22] MEDS ORDERED: ACETAMINOPHEN 325 MG TABLET PO PRN (09:45)
[2017-11-22] MEDS: ARIPiprazole 15 MG TABLET PO SCH ×2 (09:51→16:37)
[2017-11-22] MEDS: VENLAFAXINE HCL 75 MG ER CAPSULE PO SCH (09:52)
[2017-11-22 16:02] VITALS: BP 115/65
[2017-11-22] MEDS: LevETIRAcetam 500 MG TABLET PO SCH (16:37)
[2017-11-23 06:28] VITALS: BP 100/60
[2017-11-23] MEDS: HALOPERIDOL 5 MG TABLET PO PRN (08:00)
[2017-11-23] MEDS: LORazepam 2 MG TABLET PO PRN (08:00)
[2017-11-23] MEDS: VENLAFAXINE HCL 75 MG ER CAPSULE PO SCH (08:00)
[2017-11-23] MEDS: LevETIRAcetam 500 MG TABLET PO SCH ×2 (08:00→16:59)
[2017-11-23] MEDS: ARIPiprazole 15 MG TABLET PO SCH ×2 (08:00→16:58)
[2017-11-23 08:07] VITALS: BP 100/66
[2017-11-23 08:22] LABS: HEMOGLOBIN A1C 5.3 % (4.5-6.2)
[2017-11-23 08:37] LABS: THYROID STIMULATING HORMONE 0.67 uIU/mL (0.36-3.74)
[2017-11-23 16:43] VITALS: BP 111/57
[2017-11-23] MEDS: MUPIROCIN CALCIUM 2% 22 GM OINTMENT NASAL SCH (17:05)
[2017-11-24 06:28] VITALS: BP 127/73
[2017-11-24 08:14] VITALS: BP 102/74
[2017-11-24] MEDS: VENLAFAXINE HCL 75 MG ER CAPSULE PO SCH (08:17)
[2017-11-24] MEDS: ARIPiprazole 15 MG TABLET PO SCH ×2 (08:18→16:44)
[2017-11-24] MEDS: LevETIRAcetam 500 MG TABLET PO SCH ×2 (08:18→16:44)
[2017-11-24] MEDS: MUPIROCIN CALCIUM 2% 22 GM OINTMENT NASAL SCH ×2 (08:20→16:44)
[2017-11-24] MEDS: LORazepam 2 MG TABLET PO PRN (10:08)
[2017-11-24] MEDS: HALOPERIDOL 5 MG TABLET PO PRN (10:08)
[2017-11-24 16:45] VITALS: BP 125/72
[2017-11-25 06:20] VITALS: BP 111/68
[2017-11-25 08:18] VITALS: BP 101/55
[2017-11-25] MEDS: LevETIRAcetam 500 MG TABLET PO SCH ×2 (08:30→16:11)
[2017-11-25] MEDS: ARIPiprazole 15 MG TABLET PO SCH ×2 (08:30→16:11)
[2017-11-25] MEDS: MUPIROCIN CALCIUM 2% 22 GM OINTMENT NASAL SCH ×2 (08:32→16:12)
[2017-11-25] MEDS: VENLAFAXINE HCL 75 MG ER CAPSULE PO SCH (08:32)
[2017-11-25 08:50] VITALS: BP 114/66
[2017-11-25] MEDS: LORazepam 2 MG TABLET PO PRN ×2 (08:58→16:11)
[2017-11-25] MEDS: HALOPERIDOL 5 MG TABLET PO PRN ×2 (08:58→16:11)
[2017-11-25 16:03] VITALS: BP 112/70
[2017-11-25] MEDS ORDERED: MUPI1OIN4 NS (22:52)
[2017-11-26 01:26] VITALS: BP 102/63
[2017-11-26 08:13] VITALS: BP 152/71
[2017-11-26] MEDS: MUPIROCIN CALCIUM 2% 22 GM OINTMENT NASAL SCH (08:14)
[2017-11-26] MEDS: HALOPERIDOL 5 MG TABLET PO PRN (08:14)
[2017-11-26] MEDS: ARIPiprazole 15 MG TABLET PO SCH (08:14)
[2017-11-26] MEDS: LORazepam 2 MG TABLET PO PRN (08:14)
[2017-11-26] MEDS: LevETIRAcetam 500 MG TABLET PO SCH (08:14)
[2017-11-26] MEDS: VENLAFAXINE HCL 75 MG ER CAPSULE PO SCH (08:14)
== END 2017-11-26 13:15 | disposition home or self-care (01) | DRG 750 ==
LOC: EMS 18:38 → B2S 22:43 → B3A 22:43
PROVIDERS: ATTEND Psychiatry & Neurology Child & Adolescent Psychiatry
DX: F25.1 Schizoaffective disorder, depressive type (principal); E83.51 Hypocalcemia; R45.851 Suicidal ideations; M10.9 Gout, unspecified; H40.9 Unspecified glaucoma; G40.909 Epilepsy, unspecified, not intractable, without status epilepticus; F60.3 Borderline personality disorder; M19.90 Unspecified osteoarthritis, unspecified site; F41.9 Anxiety disorder, unspecified; Z88.0 Allergy status to penicillin; Z79.899 Other long term (current) drug therapy; Z91.5 Personal history of self-harm
CPT/HCPCS: 83036; 84443; 87081; 99285; G0480

== ENCOUNTER 2017-12-03 17:48 | Inpatient (IN) | payer MEDICAID, OTHER ==
[~2017-12-03] VITALS: Ht 162.6 cm; Wt 88.3 kg
[~2017-12-03 17:48] MED LIST changes: -CIPR-278 PO; +MUPI1OIN4 NS; +VENL-67 PO; -VENL25TA47 PO
[2017-12-03 19:06] LABS: BASOPHILS % (AUTO) 0.2 % (0.0-2.0); HEMATOCRIT 41.1 % (36-46); HEMOGLOBIN 14.2 g/dL (12.0-16.0); LYMPHOCYTES # (AUTO) 2.3 K/uL (1.0-4.8); LYMPHOCYTES % (AUTO) 23.8 % (22.0-44.0); MEAN CORPUSCULAR HEMOGLOBIN 30.7 pg (26.0-34.0); MEAN CORPUSCULAR HGB CONC 34.6 G/dL (31.0-37.0); MEAN CORPUSCULAR VOLUME 89 fL (80-100); MONOCYTES # (AUTO) 0.7 K/uL (0.1-1.0); NEUTROPHILS # (AUTO) 6.5 K/uL (1.8-7.7); PLATELET COUNT (AUTO) 470 K/uL (150-450); RED BLOOD CELL COUNT(AUTO) 4.63 MIL/uL (4.00-5.20); RED CELL DISTRIBUTION WIDTH 12.4 % (11.5-14.5)
[2017-12-03 19:18] LABS: ANION GAP 9 mmol/L (8-16); CALCIUM, TOTAL 9.3 mg/dL (8.8-10.5); CARBON DIOXIDE 26 mmol/L (22-29); CHLORIDE 105 mmol/L (98-107); CREATININE 1.04 mg/dL (0.60-1.30); GLOMERULAR FILTR. RATE CALC > 60 mL/min (>60); GLUCOSE,RANDOM 90 mg/dL (70-110); POTASSIUM 3.9 mmol/L (3.5-5.1); SODIUM SERUM 140 mmol/L (136-145); UREA NITROGEN, BLOOD 13 mg/dL (7-18)
[2017-12-03 19:21] LABS: AMPHET/METH SCREEN,URINE NEGATIVE (NEGATIVE); BARBITURATE SCREEN, URINE NEGATIVE (NEGATIVE); BENZODIAZEPINES SCREEN,URINE NEGATIVE (NEGATIVE); CANNABINOID SCREEN,URINE NEGATIVE (NEGATIVE); COCAINE SCREEN,URINE NEGATIVE (NEGATIVE); METHADONE SCREEN, URINE NEGATIVE (NEGATIVE); OPIATE SCREEN,URINE NEGATIVE (NEGATIVE)
[2017-12-03 19:25] LABS: PHENCYCLIDINE SCREEN,URINE NEGATIVE (NEGATIVE)
[2017-12-03 19:25] LABS: ALANINE AMINOTRANSFERASE 39 U/L (12-78); ALBUMIN 3.6 g/dL (3.4-5.0); ALKALINE PHOSPHATASE 88 U/L (46-116); ASPARTATE AMINOTRANSFERASE 14 U/L (15-37); BILIRUBIN,TOTAL 0.2 mg/dL (0.1-1.0); TOTAL PROTEIN, SERUM 7.8 g/dL (6.4-8.2)
[2017-12-04 01:10] VITALS: BP 100/56
[2017-12-04 08:31] VITALS: BP 100/55
[2017-12-04 08:51] LABS: CHOL/HDL RATIO 4.2 (3.9-5.7)
[2017-12-04] MEDS: ARIPiprazole 15 MG TABLET PO SCH ×2 (09:59→16:48)
[2017-12-04] MEDS: VENLAFAXINE HCL 75 MG ER CAPSULE PO SCH (09:59)
[2017-12-04] MEDS ORDERED: IBUPROFEN 400 MG TABLET PO PRN (15:15)
[2017-12-04 16:18] VITALS: BP 97/55
[2017-12-04] MEDS: LevETIRAcetam 500 MG TABLET PO SCH (16:48)
[2017-12-04] MEDS: LORazepam 2 MG TABLET PO PRN (17:05)
[2017-12-04] MEDS: HALOPERIDOL 5 MG TABLET PO PRN (17:26)
[2017-12-05 07:15] VITALS: BP 99/62
[2017-12-05 08:27] VITALS: BP 101/58
[2017-12-05 08:28] LABS: ALANINE AMINOTRANSFERASE 39 U/L (12-78); ALBUMIN 3.4 g/dL (3.4-5.0); ALKALINE PHOSPHATASE 81 U/L (46-116); ANION GAP 8 mmol/L (8-16); ASPARTATE AMINOTRANSFERASE 22 U/L (15-37); BILIRUBIN,TOTAL 0.4 mg/dL (0.1-1.0); CALCIUM, TOTAL 8.5 mg/dL (8.8-10.5); CARBON DIOXIDE 27 mmol/L (22-29); CHLORIDE 104 mmol/L (98-107); CREATININE 0.79 mg/dL (0.60-1.30); GLOMERULAR FILTR. RATE CALC > 60 mL/min (>60); GLUCOSE,RANDOM 80 mg/dL (70-110); POTASSIUM 3.9 mmol/L (3.5-5.1); SODIUM SERUM 139 mmol/L (136-145); TOTAL PROTEIN, SERUM 7.4 g/dL (6.4-8.2); UREA NITROGEN, BLOOD 15 mg/dL (7-18)
[2017-12-05] MEDS: LevETIRAcetam 500 MG TABLET PO SCH ×2 (08:32→16:38)
[2017-12-05] MEDS: VENLAFAXINE HCL 75 MG ER CAPSULE PO SCH (08:32)
[2017-12-05] MEDS: ARIPiprazole 15 MG TABLET PO SCH ×2 (08:32→16:37)
[2017-12-05 16:22] VITALS: BP 117/75
[2017-12-05] MEDS: LORazepam 2 MG TABLET PO PRN (16:38)
[2017-12-05] MEDS: HALOPERIDOL 5 MG TABLET PO PRN (16:38)
[2017-12-05] MEDS: ZOLPIDEM TARTRATE 10 MG TABLET PO PRN (23:47)
[2017-12-06 07:08] VITALS: BP 100/72
[2017-12-06] MEDS: LevETIRAcetam 500 MG TABLET PO SCH ×2 (08:09→16:01)
[2017-12-06] MEDS: HALOPERIDOL 5 MG TABLET PO PRN ×2 (08:09→16:24)
[2017-12-06] MEDS: LORazepam 2 MG TABLET PO PRN ×2 (08:09→16:02)
[2017-12-06] MEDS: ARIPiprazole 15 MG TABLET PO SCH ×2 (08:09→16:02)
[2017-12-06] MEDS: VENLAFAXINE HCL 75 MG ER CAPSULE PO SCH (08:09)
[2017-12-06 08:20] VITALS: BP 98/64
[2017-12-06 16:05] VITALS: BP 111/72
[2017-12-06] MEDS: ZOLPIDEM TARTRATE 10 MG TABLET PO PRN (20:28)
[2017-12-07 04:06] VITALS: BP 100/62
[2017-12-07 08:09] VITALS: BP 100/58
[2017-12-07] MEDS: ARIPiprazole 15 MG TABLET PO SCH ×2 (08:12→15:53)
[2017-12-07] MEDS: VENLAFAXINE HCL 75 MG ER CAPSULE PO SCH (08:12)
[2017-12-07] MEDS: LevETIRAcetam 500 MG TABLET PO SCH ×2 (08:12→15:52)
[2017-12-07 13:10] VITALS: BP 108/68
[2017-12-07] MEDS: LORazepam 2 MG TABLET PO PRN (13:15)
[2017-12-07 16:04] VITALS: BP 109/69
[2017-12-07] MEDS: HALOPERIDOL 5 MG TABLET PO PRN (17:21)
[2017-12-07] MEDS: ZOLPIDEM TARTRATE 10 MG TABLET PO PRN (21:01)
[2017-12-08 06:23] VITALS: BP 111/63
[2017-12-08 08:14] VITALS: BP 102/57
[2017-12-08] MEDS: ARIPiprazole 15 MG TABLET PO SCH ×2 (09:02→17:01)
[2017-12-08] MEDS: LevETIRAcetam 500 MG TABLET PO SCH ×2 (09:02→17:01)
[2017-12-08] MEDS: VENLAFAXINE HCL 75 MG ER CAPSULE PO SCH (09:02)
[2017-12-08] MEDS: LORazepam 2 MG TABLET PO PRN ×2 (10:52→16:07)
[2017-12-08 10:53] VITALS: BP 114/73
[2017-12-08] MEDS: HALOPERIDOL 5 MG TABLET PO PRN (16:38)
[2017-12-08 16:39] VITALS: BP 122/81
[2017-12-08 18:15] VITALS: BP 112/64
[2017-12-08] MEDS: ACETAMINOPHEN 325 MG TABLET PO PRN (18:15)
[2017-12-08] MEDS: ZOLPIDEM TARTRATE 10 MG TABLET PO PRN (21:03)
[2017-12-09 00:30] VITALS: BP 118/79
[2017-12-09] MEDS: VENLAFAXINE HCL 75 MG ER CAPSULE PO SCH (08:06)
[2017-12-09] MEDS: HALOPERIDOL 5 MG TABLET PO PRN ×2 (08:06→16:45)
[2017-12-09] MEDS: ARIPiprazole 15 MG TABLET PO SCH ×2 (08:06→16:45)
[2017-12-09] MEDS: LevETIRAcetam 500 MG TABLET PO SCH ×2 (08:07→16:45)
[2017-12-09] MEDS: LORazepam 2 MG TABLET PO PRN ×2 (08:07→16:45)
[2017-12-09 08:15] VITALS: BP 112/63
[2017-12-09] MEDS: ONDANSETRON HCL 4 MG TABLET PO PRN (10:54)
[2017-12-09 16:20] VITALS: BP 105/59
[2017-12-10] VITALS: BP 100/75
[2017-12-10] MEDS: ARIPiprazole 15 MG TABLET PO SCH ×2 (09:00→17:07)
[2017-12-10] MEDS: VENLAFAXINE HCL 75 MG ER CAPSULE PO SCH (09:00)
[2017-12-10] MEDS: LevETIRAcetam 500 MG TABLET PO SCH ×2 (09:01→17:07)
[2017-12-10] MEDS: LORazepam 2 MG TABLET PO PRN ×2 (10:21→15:13)
[2017-12-10] MEDS: HALOPERIDOL 5 MG TABLET PO PRN (10:21)
[2017-12-10 16:42] VITALS: BP 108/64
[2017-12-10] MEDS: ZOLPIDEM TARTRATE 10 MG TABLET PO PRN (20:49)
[2017-12-11 05:50] VITALS: BP 102/60
[2017-12-11 08:37] VITALS: BP 100/65
[2017-12-11] MEDS: LevETIRAcetam 500 MG TABLET PO SCH ×2 (08:47→16:32)
[2017-12-11] MEDS: VENLAFAXINE HCL 75 MG ER CAPSULE PO SCH (08:47)
[2017-12-11] MEDS: ARIPiprazole 15 MG TABLET PO SCH ×2 (08:47→16:31)
[2017-12-11] MEDS: ONDANSETRON HCL 4 MG TABLET PO PRN (12:44)
[2017-12-11] MEDS: LORazepam 2 MG TABLET PO PRN (15:01)
[2017-12-11] MEDS: HALOPERIDOL 5 MG TABLET PO PRN (15:01)
[2017-12-11 15:08] VITALS: BP 114/75
[2017-12-11 16:18] VITALS: BP 111/67
[2017-12-11 17:00] VITALS: BP 110/75
[2017-12-11] MEDS: ACETAMINOPHEN 325 MG TABLET PO PRN (17:04)
[2017-12-12 00:15] VITALS: BP 104/70
[2017-12-12] MEDS: ARIPiprazole 15 MG TABLET PO SCH (08:22)
[2017-12-12] MEDS: VENLAFAXINE HCL 75 MG ER CAPSULE PO SCH (08:22)
[2017-12-12] MEDS: LORazepam 2 MG TABLET PO PRN (08:22)
[2017-12-12] MEDS: LevETIRAcetam 500 MG TABLET PO SCH (08:22)
[2017-12-12 08:32] VITALS: BP 119/72
[2017-12-17] MEDS ORDERED: ARIP15TA2 PO (11:19)
== END 2017-12-12 13:30 | disposition home or self-care (01) | DRG 750 ==
LOC: EMS 17:50 → B3A 22:00
PROVIDERS: ADMIT Psychiatry & Neurology Child & Adolescent Psychiatry; ATTEND Psychiatry & Neurology Child & Adolescent Psychiatry
DX: F25.1 Schizoaffective disorder, depressive type (principal); G40.909 Epilepsy, unspecified, not intractable, without status epilepticus; F32.9 Major depressive disorder, single episode, unspecified; M10.9 Gout, unspecified; M19.90 Unspecified osteoarthritis, unspecified site; F41.9 Anxiety disorder, unspecified; S61.215A Laceration without foreign body of left ring finger without damage to nail, initial encounter; X78.9XXA Intentional self-harm by unspecified sharp object, initial encounter; Z91.5 Personal history of self-harm; Z88.0 Allergy status to penicillin; Z79.899 Other long term (current) drug therapy; Z98.51 Tubal ligation status
CPT/HCPCS: 87081; 99285; G0480; Q0162

== ENCOUNTER 2017-12-23 21:31 | Emergency (ER) | payer MEDICAID, OTHER ==
[~2017-12-23] VITALS: Ht 162.6 cm; Wt 90.9 kg
[~2017-12-23 21:31] MED LIST changes: -MUPI1OIN4 NS
[2017-12-23 22:51] LABS: BASOPHILS % (AUTO) 0.4 % (0.0-2.0); EOSINOPHILS % (AUTO) 4.5 % (1.0-6.0); HEMATOCRIT 37.9 % (36-46); HEMOGLOBIN 13.1 g/dL (12.0-16.0); LYMPHOCYTES # (AUTO) 2.1 K/uL (1.0-4.8); LYMPHOCYTES % (AUTO) 22.2 % (22.0-44.0); MEAN CORPUSCULAR HEMOGLOBIN 30.8 pg (26.0-34.0); MEAN CORPUSCULAR HGB CONC 34.6 G/dL (31.0-37.0); MEAN CORPUSCULAR VOLUME 89 fL (80-100); MONOCYTES # (AUTO) 0.8 K/uL (0.1-1.0); MONOCYTES % (AUTO) 8.4 % (2.0-9.0); NEUTROPHILS % (AUTO) 64.5 % (40.0-70.0); PLATELET COUNT (AUTO) 387 K/uL (150-450); RED BLOOD CELL COUNT(AUTO) 4.25 MIL/uL (4.00-5.20); RED CELL DISTRIBUTION WIDTH 12.9 % (11.5-14.5)
[2017-12-23 23:06] LABS: ANION GAP 11 mmol/L (8-16); CALCIUM, TOTAL 9.1 mg/dL (8.8-10.5); CARBON DIOXIDE 25 mmol/L (22-29); CHLORIDE 105 mmol/L (98-107); CREATININE 0.87 mg/dL (0.60-1.30); GLOMERULAR FILTR. RATE CALC > 60 mL/min (>60); GLUCOSE,RANDOM 94 mg/dL (70-110); POTASSIUM 3.8 mmol/L (3.5-5.1); SODIUM SERUM 141 mmol/L (136-145); UREA NITROGEN, BLOOD 12 mg/dL (7-18)
[2017-12-23 23:12] LABS: ALANINE AMINOTRANSFERASE 109 U/L (12-78); ALBUMIN 3.4 g/dL (3.4-5.0); ALKALINE PHOSPHATASE 110 U/L (46-116); ASPARTATE AMINOTRANSFERASE 32 U/L (15-37); BILIRUBIN,TOTAL 0.2 mg/dL (0.1-1.0); TOTAL PROTEIN, SERUM 7.5 g/dL (6.4-8.2)
[2017-12-23 23:33] LABS: AMPHET/METH SCREEN,URINE NEGATIVE (NEGATIVE); BARBITURATE SCREEN, URINE NEGATIVE (NEGATIVE); BENZODIAZEPINES SCREEN,URINE NEGATIVE (NEGATIVE); CANNABINOID SCREEN,URINE NEGATIVE (NEGATIVE); COCAINE SCREEN,URINE NEGATIVE (NEGATIVE); METHADONE SCREEN, URINE NEGATIVE (NEGATIVE); OPIATE SCREEN,URINE NEGATIVE (NEGATIVE)
[2017-12-23 23:44] LABS: PHENCYCLIDINE SCREEN,URINE NEGATIVE (NEGATIVE)
[2017-12-24 00:44] VITALS: BP 105/59
== END 2017-12-24 01:04 | disposition home or self-care (01) ==
LOC: EMS 21:32
DX: S60.811A Abrasion of right wrist, initial encounter (principal); F41.9 Anxiety disorder, unspecified; F31.9 Bipolar disorder, unspecified; F20.9 Schizophrenia, unspecified; Z79.899 Other long term (current) drug therapy; Z88.0 Allergy status to penicillin; X78.0XXA Intentional self-harm by sharp glass, initial encounter; Y93.89 Activity, other specified; Y92.89 Other specified places as the place of occurrence of the external cause; Y99.8 Other external cause status
CPT/HCPCS: 36415; 80053; 80307; 84703; 85025; 99285; G0480

== ENCOUNTER 2017-12-24 19:35 | Emergency (ER) | payer OTHER ==
[~2017-12-24] VITALS: Ht 167.6 cm; Wt 80.0 kg
[2017-12-24 20:49] LABS: BASOPHILS % (AUTO) 0.3 % (0.0-2.0); EOSINOPHILS % (AUTO) 4.2 % (1.0-6.0); HEMATOCRIT 37.8 % (36-46); HEMOGLOBIN 12.9 g/dL (12.0-16.0); LYMPHOCYTES # (AUTO) 1.8 K/uL (1.0-4.8); LYMPHOCYTES % (AUTO) 19.6 % (22.0-44.0); MEAN CORPUSCULAR HEMOGLOBIN 30.4 pg (26.0-34.0); MEAN CORPUSCULAR HGB CONC 34.1 G/dL (31.0-37.0); MEAN CORPUSCULAR VOLUME 89 fL (80-100); MONOCYTES # (AUTO) 0.9 K/uL (0.1-1.0); MONOCYTES % (AUTO) 9.3 % (2.0-9.0); NEUTROPHILS # (AUTO) 6.1 K/uL (1.8-7.7); NEUTROPHILS % (AUTO) 66.6 % (40.0-70.0); PLATELET COUNT (AUTO) 386 K/uL (150-450); RED BLOOD CELL COUNT(AUTO) 4.24 MIL/uL (4.00-5.20); RED CELL DISTRIBUTION WIDTH 12.5 % (11.5-14.5)
[2017-12-24 21:01] LABS: ANION GAP 7 mmol/L (8-16); CALCIUM, TOTAL 8.9 mg/dL (8.8-10.5); CARBON DIOXIDE 28 mmol/L (22-29); CHLORIDE 106 mmol/L (98-107); CREATININE 0.85 mg/dL (0.60-1.30); GLOMERULAR FILTR. RATE CALC > 60 mL/min (>60); GLUCOSE,RANDOM 103 mg/dL (70-110); POTASSIUM 3.9 mmol/L (3.5-5.1); SODIUM SERUM 141 mmol/L (136-145); UREA NITROGEN, BLOOD 13 mg/dL (7-18)
[2017-12-24 21:07] LABS: ALANINE AMINOTRANSFERASE 90 U/L (12-78); ALBUMIN 3.3 g/dL (3.4-5.0); ALKALINE PHOSPHATASE 104 U/L (46-116); ASPARTATE AMINOTRANSFERASE 23 U/L (15-37); BILIRUBIN,TOTAL 0.1 mg/dL (0.1-1.0); TOTAL PROTEIN, SERUM 7.3 g/dL (6.4-8.2)
[2017-12-25] MEDS ORDERED: HALOPERIDOL 5 MG TABLET PO ONE (00:15)
[2017-12-25 02:16] VITALS: BP 119/65
[2017-12-26] MEDS ORDERED: HALO5TAB2 PO (16:18)
[2017-12-26] MEDS ORDERED: BENZ1TAB10 PO (16:18)
== END 2017-12-25 02:18 | disposition home or self-care (01) ==
LOC: EMS 19:36
DX: S60.812A Abrasion of left wrist, initial encounter (principal); S60.811A Abrasion of right wrist, initial encounter; F32.9 Major depressive disorder, single episode, unspecified; F41.9 Anxiety disorder, unspecified; F31.9 Bipolar disorder, unspecified; F20.9 Schizophrenia, unspecified; Z88.0 Allergy status to penicillin; X78.0XXA Intentional self-harm by sharp glass, initial encounter; Y93.89 Activity, other specified; Y92.89 Other specified places as the place of occurrence of the external cause; Y99.8 Other external cause status
CPT/HCPCS: 80053; 85025; 99285; G0480

== ENCOUNTER 2017-12-25 03:45 | Emergency (ER) | payer OTHER ==
[~2017-12-25] VITALS: Ht 165.1 cm; Wt 81.8 kg
[2017-12-25 06:35] VITALS: BP 122/71
[2017-12-26] MEDS ORDERED: BENZ1TAB10 PO (16:18)
[2017-12-26] MEDS ORDERED: HALO5TAB2 PO (16:18)
== END 2017-12-25 06:35 | disposition home or self-care (01) ==
LOC: EMS 03:47
DX: T74.21XA Adult sexual abuse, confirmed, initial encounter (principal); F20.9 Schizophrenia, unspecified; F31.9 Bipolar disorder, unspecified; Z88.0 Allergy status to penicillin
CPT/HCPCS: 99283

== ENCOUNTER 2017-12-26 15:33 | Inpatient (IN) | payer MEDICAID, OTHER ==
[~2017-12-26] VITALS: Ht 162.6 cm; Wt 90.4 kg
[2017-12-26] MEDS ORDERED: HALO5TAB2 PO (16:18)
[2017-12-26] MEDS ORDERED: BENZ1TAB10 PO (16:18)
[2017-12-26] MEDS ORDERED: ZOLPIDEM TARTRATE 10 MG TABLET PO PRN (18:15)
[2017-12-27 01:28] VITALS: BP 101/64
[2017-12-27 06:48] LABS: CHOL/HDL RATIO 4.7 (3.9-5.7)
[2017-12-27] MEDS ORDERED: ALBUTEROL SULFATE HFA 90 MCG/PUFF 8 GM INHALER IH PRN (07:30)
[2017-12-27] MEDS ORDERED: ACETAMINOPHEN 325 MG TABLET PO PRN (07:30)
[2017-12-27] MEDS ORDERED: PETROLATUM,WHITE 71 GM JELLY TP PRN (07:30)
[2017-12-27] MEDS ORDERED: MAGNESIUM HYDROXIDE SUSPENSION 30 ML UDCUP PO PRN (07:30)
[2017-12-27] MEDS ORDERED: DOCUSATE SODIUM 100 MG CAPSULE PO PRN (07:30)
[2017-12-27] MEDS ORDERED: MAG HYDROX/AL HYDROX/SIMETH ES 30 ML SUSPENSION UDCUP PO PRN (07:30)
[2017-12-27] MEDS ORDERED: ONDANSETRON HCL 4 MG TABLET PO PRN (07:30)
[2017-12-27] MEDS ORDERED: IBUPROFEN 400 MG TABLET PO PRN (07:30)
[2017-12-27] MEDS ORDERED: LOPERAMIDE HCL 2 MG CAPSULE PO PRN (07:30)
[2017-12-27 09:32] LABS: APPEARANCE,URINE CLOUDY (CLEAR); BILIRUBIN,URINE NEGATIVE (NEGATIVE); GLUCOSE, URINE (UA) NEGATIVE (NEGATIVE); KETONES,URINE NEGATIVE (NEGATIVE); LEUKOCYTE ESTERASE ,URINE SMALL (NEGATIVE); NITRATE,URINE NEGATIVE (NEGATIVE); OCCULT BLOOD,URINE NEGATIVE (NEGATIVE); PROTEIN,URINE NEGATIVE (NEGATIVE); UROBILINOGEN,URINE 0.2 mg/dL (<=1.0)
[2017-12-27 09:35] LABS: AMPHET/METH SCREEN,URINE NEGATIVE (NEGATIVE); BARBITURATE SCREEN, URINE NEGATIVE (NEGATIVE); BENZODIAZEPINES SCREEN,URINE NEGATIVE (NEGATIVE); CANNABINOID SCREEN,URINE NEGATIVE (NEGATIVE); COCAINE SCREEN,URINE NEGATIVE (NEGATIVE); METHADONE SCREEN, URINE NEGATIVE (NEGATIVE); OPIATE SCREEN,URINE NEGATIVE (NEGATIVE)
[2017-12-27 09:36] LABS: PHENCYCLIDINE SCREEN,URINE NEGATIVE (NEGATIVE)
[2017-12-27 09:49] LABS: BACTERIA,URINE Moderate /HPF (None Seen); MUCUS,URINE Many LPF (None Seen); SQUAMOUS EPITHELIAL CELL,UR Moderate /LPF (None Seen)
[2017-12-27 09:50] LABS: CALCIUM OXALATE CRYSTALS,UR Rare /LPF (None Seen)
[2017-12-27 10:31] VITALS: BP 109/53
[2017-12-27] MEDS: LevETIRAcetam 500 MG TABLET PO SCH ×2 (11:22→17:25)
[2017-12-27] MEDS: LORazepam 2 MG TABLET PO PRN (14:00)
[2017-12-27] MEDS: HALOPERIDOL 5 MG TABLET PO PRN (14:00)
[2017-12-27 16:14] VITALS: BP 115/75
[2017-12-27] MEDS: CIPROFLOXACIN HCL 250 MG TABLET PO SCH (17:26)
[2017-12-28 08:30] VITALS: BP 132/86
[2017-12-28 08:30] LABS: BASOPHILS % (AUTO) 0.3 % (0.0-2.0); EOSINOPHILS % (AUTO) 3.6 % (1.0-6.0); HEMATOCRIT 39.5 % (36-46); HEMOGLOBIN 13.6 g/dL (12.0-16.0); LYMPHOCYTES # (AUTO) 1.8 K/uL (1.0-4.8); LYMPHOCYTES % (AUTO) 23.3 % (22.0-44.0); MEAN CORPUSCULAR HEMOGLOBIN 30.7 pg (26.0-34.0); MEAN CORPUSCULAR HGB CONC 34.6 G/dL (31.0-37.0); MEAN CORPUSCULAR VOLUME 89 fL (80-100); MONOCYTES # (AUTO) 0.7 K/uL (0.1-1.0); MONOCYTES % (AUTO) 8.9 % (2.0-9.0); NEUTROPHILS # (AUTO) 4.9 K/uL (1.8-7.7); NEUTROPHILS % (AUTO) 63.9 % (40.0-70.0); PLATELET COUNT (AUTO) 370 K/uL (150-450); RED BLOOD CELL COUNT(AUTO) 4.44 MIL/uL (4.00-5.20); RED CELL DISTRIBUTION WIDTH 12.6 % (11.5-14.5)
[2017-12-28 08:46] LABS: HEMOGLOBIN A1C 4.6 % (4.5-6.2)
[2017-12-28 09:01] LABS: ALANINE AMINOTRANSFERASE 53 U/L (12-78); ALBUMIN 3.1 g/dL (3.4-5.0); ALKALINE PHOSPHATASE 83 U/L (46-116); ANION GAP 7 mmol/L (8-16); ASPARTATE AMINOTRANSFERASE 14 U/L (15-37); BILIRUBIN,TOTAL 0.2 mg/dL (0.1-1.0); CALCIUM, TOTAL 8.5 mg/dL (8.8-10.5); CARBON DIOXIDE 25 mmol/L (22-29); CHLORIDE 106 mmol/L (98-107); CHOL/HDL RATIO 4.7 (3.9-5.7); CHOLESTEROL 188 mg/dL (131-200); GLOMERULAR FILTR. RATE CALC > 60 mL/min (>60); GLUCOSE,RANDOM 91 mg/dL (70-110); HDL CHOLESTEROL 40 mg/dL (40-60); LDL CHOL (CALC.) 125 mg/dL (0-130); POTASSIUM 3.9 mmol/L (3.5-5.1); SODIUM SERUM 138 mmol/L (136-145); THYROID STIMULATING HORMONE 1.04 uIU/mL (0.36-3.74); TOTAL PROTEIN, SERUM 7.1 g/dL (6.4-8.2); TRIGLYCERIDES 113 mg/dL (15-150); UREA NITROGEN, BLOOD 12 mg/dL (7-18)
[2017-12-28] MEDS: ARIPiprazole 15 MG TABLET PO SCH (09:16)
[2017-12-28] MEDS: CIPROFLOXACIN HCL 250 MG TABLET PO SCH ×2 (09:16→16:31)
[2017-12-28] MEDS: LevETIRAcetam 500 MG TABLET PO SCH ×2 (09:16→16:30)
[2017-12-28] MEDS: VENLAFAXINE HCL 75 MG ER CAPSULE PO SCH (09:16)
[2017-12-28] MEDS: HALOPERIDOL 5 MG TABLET PO PRN (10:41)
[2017-12-28] MEDS: LORazepam 2 MG TABLET PO PRN (10:41)
[2017-12-28 16:00] VITALS: BP 126/80
[2017-12-29 08:56] VITALS: BP 104/61
[2017-12-29] MEDS: ARIPiprazole 15 MG TABLET PO SCH (09:00)
[2017-12-29] MEDS: VENLAFAXINE HCL 75 MG ER CAPSULE PO SCH (09:00)
[2017-12-29] MEDS: LevETIRAcetam 500 MG TABLET PO SCH ×2 (09:01→16:58)
[2017-12-29] MEDS: CIPROFLOXACIN HCL 250 MG TABLET PO SCH ×2 (09:01→16:58)
[2017-12-29] MEDS: LORazepam 2 MG TABLET PO PRN (11:58)
[2017-12-29] MEDS: HALOPERIDOL 5 MG TABLET PO PRN (11:58)
[2017-12-29 16:36] VITALS: BP 119/77
[2017-12-30 03:37] VITALS: BP 108/64
[2017-12-30 08:00] VITALS: BP 105/54
[2017-12-30] MEDS: LevETIRAcetam 500 MG TABLET PO SCH ×2 (08:19→15:56)
[2017-12-30] MEDS: CIPROFLOXACIN HCL 250 MG TABLET PO SCH ×2 (08:19→15:56)
[2017-12-30] MEDS: VENLAFAXINE HCL 75 MG ER CAPSULE PO SCH (08:19)
[2017-12-30] MEDS: ARIPiprazole 15 MG TABLET PO SCH (08:20)
[2017-12-30] MEDS: LORazepam 2 MG TABLET PO PRN ×2 (09:11→15:56)
[2017-12-30] MEDS: HALOPERIDOL 5 MG TABLET PO PRN (15:56)
[2017-12-30] MEDS ORDERED: DiphenhydrAMINE HCL 50 MG/ML VIAL IM ONE (16:45)
[2017-12-30] MEDS ORDERED: LORazepam 2 MG/ML VIAL IM ONE (16:45)
[2017-12-30] MEDS ORDERED: HALOPERIDOL LACTATE 5 MG/ML VIAL IM ONE (16:45)
[2017-12-30 21:54] VITALS: BP 119/74
[2017-12-31 00:24] VITALS: BP 113/78
[2017-12-31] MEDS: VENLAFAXINE HCL 75 MG ER CAPSULE PO SCH (09:10)
[2017-12-31] MEDS: LevETIRAcetam 500 MG TABLET PO SCH ×2 (09:10→15:57)
[2017-12-31] MEDS: ARIPiprazole 15 MG TABLET PO SCH (09:10)
[2017-12-31] MEDS: CIPROFLOXACIN HCL 250 MG TABLET PO SCH ×2 (09:10→15:57)
[2017-12-31 09:23] VITALS: BP 113/67
[2017-12-31] MEDS: HALOPERIDOL 5 MG TABLET PO PRN (15:57)
[2017-12-31] MEDS: LORazepam 2 MG TABLET PO PRN (15:57)
[2017-12-31 16:27] VITALS: BP 128/70
[2018-01-01] MEDS: LevETIRAcetam 500 MG TABLET PO SCH ×2 (08:10→16:03)
[2018-01-01] MEDS: VENLAFAXINE HCL 75 MG ER CAPSULE PO SCH (08:11)
[2018-01-01] MEDS: CIPROFLOXACIN HCL 250 MG TABLET PO SCH ×2 (08:11→16:03)
[2018-01-01] MEDS: ARIPiprazole 15 MG TABLET PO SCH (08:11)
[2018-01-01 09:05] VITALS: BP 154/85
[2018-01-01] MEDS: LORazepam 2 MG TABLET PO PRN (15:53)
[2018-01-01] MEDS: HALOPERIDOL 5 MG TABLET PO PRN (15:53)
[2018-01-01 16:34] VITALS: BP 117/70
[2018-01-02 00:41] VITALS: BP 106/66
[2018-01-02] MEDS: ARIPiprazole 15 MG TABLET PO SCH (07:51)
[2018-01-02] MEDS: LevETIRAcetam 500 MG TABLET PO SCH (07:52)
[2018-01-02] MEDS: VENLAFAXINE HCL 75 MG ER CAPSULE PO SCH (07:52)
[2018-01-02] MEDS: CIPROFLOXACIN HCL 250 MG TABLET PO SCH (07:52)
[2018-01-02 08:05] VITALS: BP 116/69
[2018-01-02] MEDS ORDERED: CIP250 PO (10:55)
== END 2018-01-02 13:05 | disposition home or self-care (01) | DRG 750 ==
LOC: EMS 15:34 → 3EI 22:00
PROVIDERS: ADMIT Psychiatry & Neurology Child & Adolescent Psychiatry; ATTEND Psychiatry & Neurology Child & Adolescent Psychiatry
DX: F25.1 Schizoaffective disorder, depressive type (principal); G40.909 Epilepsy, unspecified, not intractable, without status epilepticus; R45.851 Suicidal ideations; N39.0 Urinary tract infection, site not specified; M10.9 Gout, unspecified; F60.3 Borderline personality disorder; F41.9 Anxiety disorder, unspecified; M19.90 Unspecified osteoarthritis, unspecified site; Z79.899 Other long term (current) drug therapy; Z88.0 Allergy status to penicillin
CPT/HCPCS: 74019; 80307; 83036; 84443; 87081; 87086; 99285; J1200; J1630; J2060

== ENCOUNTER 2018-01-05 18:27 | Inpatient (IN) | payer MEDICAID, OTHER ==
[~2018-01-05] VITALS: Ht 162.6 cm; Wt 92.5 kg
[~2018-01-05 18:27] MED LIST changes: +CIP250 PO
[2018-01-05 18:47] LABS: BASOPHILS % (AUTO) 0.2 % (0.0-2.0); EOSINOPHILS % (AUTO) 4.7 % (1.0-6.0); HEMATOCRIT 38.4 % (36-46); HEMOGLOBIN 13.3 g/dL (12.0-16.0); LYMPHOCYTES # (AUTO) 2.6 K/uL (1.0-4.8); LYMPHOCYTES % (AUTO) 32.4 % (22.0-44.0); MEAN CORPUSCULAR HEMOGLOBIN 30.7 pg (26.0-34.0); MEAN CORPUSCULAR HGB CONC 34.6 G/dL (31.0-37.0); MEAN CORPUSCULAR VOLUME 89 fL (80-100); MONOCYTES # (AUTO) 0.8 K/uL (0.1-1.0); NEUTROPHILS # (AUTO) 4.2 K/uL (1.8-7.7); NEUTROPHILS % (AUTO) 52.7 % (40.0-70.0); PLATELET COUNT (AUTO) 430 K/uL (150-450); RED BLOOD CELL COUNT(AUTO) 4.33 MIL/uL (4.00-5.20); RED CELL DISTRIBUTION WIDTH 12.5 % (11.5-14.5)
[2018-01-05 18:55] LABS: ANION GAP 11 mmol/L (8-16); CALCIUM, TOTAL 8.5 mg/dL (8.8-10.5); CARBON DIOXIDE 26 mmol/L (22-29); CHLORIDE 104 mmol/L (98-107); CREATININE 0.97 mg/dL (0.60-1.30); GLOMERULAR FILTR. RATE CALC > 60 mL/min (>60); GLUCOSE,RANDOM 107 mg/dL (70-110); POTASSIUM 3.7 mmol/L (3.5-5.1); SODIUM SERUM 141 mmol/L (136-145); UREA NITROGEN, BLOOD 11 mg/dL (7-18)
[2018-01-05 19:02] LABS: ALANINE AMINOTRANSFERASE 68 U/L (12-78); ALBUMIN 3.4 g/dL (3.4-5.0); ALKALINE PHOSPHATASE 102 U/L (46-116); ASPARTATE AMINOTRANSFERASE 25 U/L (15-37); BILIRUBIN,TOTAL 0.1 mg/dL (0.1-1.0); TOTAL PROTEIN, SERUM 7.4 g/dL (6.4-8.2)
[2018-01-05 19:40] LABS: AMPHET/METH SCREEN,URINE NEGATIVE (NEGATIVE); BARBITURATE SCREEN, URINE NEGATIVE (NEGATIVE); BENZODIAZEPINES SCREEN,URINE NEGATIVE (NEGATIVE); CANNABINOID SCREEN,URINE NEGATIVE (NEGATIVE); COCAINE SCREEN,URINE NEGATIVE (NEGATIVE); METHADONE SCREEN, URINE NEGATIVE (NEGATIVE); OPIATE SCREEN,URINE NEGATIVE (NEGATIVE)
[2018-01-05 19:41] LABS: PHENCYCLIDINE SCREEN,URINE NEGATIVE (NEGATIVE)
[2018-01-05] MEDS ORDERED: ZOLPIDEM TARTRATE 10 MG TABLET PO PRN (19:45)
[2018-01-05] MEDS ORDERED: MAGNESIUM HYDROXIDE SUSPENSION 30 ML UDCUP PO PRN (19:45)
[2018-01-05 21:03] VITALS: BP 105/64
[2018-01-05] MEDS ORDERED: CloNIDine HCL 0.1 MG TABLET PO PRN (21:45)
[2018-01-05] MEDS ORDERED: ALBUTEROL SULFATE HFA 90 MCG/PUFF 8 GM INHALER IH PRN (21:45)
[2018-01-05] MEDS ORDERED: DOCUSATE SODIUM 100 MG CAPSULE PO PRN (21:45)
[2018-01-05] MEDS ORDERED: ONDANSETRON HCL 4 MG TABLET PO PRN (21:45)
[2018-01-05] MEDS ORDERED: LOPERAMIDE HCL 2 MG CAPSULE PO PRN (21:45)
[2018-01-05] MEDS ORDERED: ACETAMINOPHEN 325 MG TABLET PO PRN (21:45)
[2018-01-06 07:18] VITALS: BP 102/60
[2018-01-06] MEDS: LevETIRAcetam 500 MG TABLET PO SCH ×2 (08:36→17:23)
[2018-01-06 09:50] LABS: CHOL/HDL RATIO 4.3 (3.9-5.7); THYROID STIMULATING HORMONE 0.56 uIU/mL (0.36-3.74)
[2018-01-06] MEDS: ARIPiprazole 15 MG TABLET PO SCH (10:43)
[2018-01-06 16:54] VITALS: BP 106/60
[2018-01-06] MEDS: HALOPERIDOL 5 MG TABLET PO PRN (17:24)
[2018-01-06] MEDS: LORazepam 2 MG TABLET PO PRN (17:24)
[2018-01-07 00:39] VITALS: BP 110/77
[2018-01-07 08:02] VITALS: BP 112/55
[2018-01-07] MEDS: LevETIRAcetam 500 MG TABLET PO SCH ×2 (08:57→16:32)
[2018-01-07] MEDS: LORazepam 2 MG TABLET PO PRN ×2 (08:57→16:32)
[2018-01-07] MEDS: HALOPERIDOL 5 MG TABLET PO PRN ×2 (08:57→16:32)
[2018-01-07] MEDS: ARIPiprazole 15 MG TABLET PO SCH (08:57)
[2018-01-07] MEDS: VENLAFAXINE HCL 75 MG ER CAPSULE PO SCH (08:57)
[2018-01-07 16:14] VITALS: BP 113/73
[2018-01-08 06:58] VITALS: BP 114/62
[2018-01-08 08:31] VITALS: BP 100/63
[2018-01-08] MEDS: ARIPiprazole 15 MG TABLET PO SCH (08:46)
[2018-01-08] MEDS: LevETIRAcetam 500 MG TABLET PO SCH ×2 (08:47→16:48)
[2018-01-08] MEDS: VENLAFAXINE HCL 75 MG ER CAPSULE PO SCH (08:47)
[2018-01-08] MEDS: LORazepam 2 MG TABLET PO PRN ×2 (10:04→16:49)
[2018-01-08] MEDS: HALOPERIDOL 5 MG TABLET PO PRN (10:44)
[2018-01-08 16:39] VITALS: BP 123/74
[2018-01-09 05:45] VITALS: BP 122/79
[2018-01-09 08:42] VITALS: BP 107/67
[2018-01-09] MEDS: ARIPiprazole 15 MG TABLET PO SCH (08:59)
[2018-01-09] MEDS: LevETIRAcetam 500 MG TABLET PO SCH ×2 (08:59→16:10)
[2018-01-09] MEDS: VENLAFAXINE HCL 75 MG ER CAPSULE PO SCH (08:59)
[2018-01-09] MEDS: LORazepam 2 MG TABLET PO PRN ×2 (09:45→16:26)
[2018-01-09] MEDS: HALOPERIDOL 5 MG TABLET PO PRN ×2 (09:45→16:26)
[2018-01-09 16:00] VITALS: BP 115/76
[2018-01-10 05:04] VITALS: BP 118/82
[2018-01-10 08:28] VITALS: BP 101/58
[2018-01-10] MEDS: VENLAFAXINE HCL 75 MG ER CAPSULE PO SCH (08:54)
[2018-01-10] MEDS: ARIPiprazole 15 MG TABLET PO SCH (08:54)
[2018-01-10] MEDS: LevETIRAcetam 500 MG TABLET PO SCH ×2 (08:54→16:40)
[2018-01-10 10:41] VITALS: BP 111/71
[2018-01-10] MEDS: HALOPERIDOL 5 MG TABLET PO PRN ×2 (10:45→16:09)
[2018-01-10] MEDS: LORazepam 2 MG TABLET PO PRN ×2 (10:45→16:09)
[2018-01-10 16:08] VITALS: BP 112/75
[2018-01-11 06:34] VITALS: BP 111/58
[2018-01-11 08:34] VITALS: BP 100/51
[2018-01-11] MEDS: LevETIRAcetam 500 MG TABLET PO SCH ×2 (08:57→16:19)
[2018-01-11] MEDS: VENLAFAXINE HCL 75 MG ER CAPSULE PO SCH (08:57)
[2018-01-11] MEDS: ARIPiprazole 15 MG TABLET PO SCH (08:57)
[2018-01-11] MEDS: LORazepam 2 MG TABLET PO PRN ×2 (10:08→16:19)
[2018-01-11] MEDS: HALOPERIDOL 5 MG TABLET PO PRN ×2 (10:08→16:19)
[2018-01-11 17:02] VITALS: BP 118/71
[2018-01-12 06:58] VITALS: BP 110/62
[2018-01-12] MEDS: VENLAFAXINE HCL 75 MG ER CAPSULE PO SCH (08:09)
[2018-01-12] MEDS: LORazepam 2 MG TABLET PO PRN ×2 (08:10→15:19)
[2018-01-12] MEDS: ARIPiprazole 15 MG TABLET PO SCH (08:10)
[2018-01-12] MEDS: LevETIRAcetam 500 MG TABLET PO SCH ×2 (08:10→16:20)
[2018-01-12] MEDS: HALOPERIDOL 5 MG TABLET PO PRN ×2 (08:10→15:19)
[2018-01-12 08:20] VITALS: BP 109/58
[2018-01-12] MEDS: ACETAMINOPHEN 325 MG TABLET PO PRN (17:12)
[2018-01-12 17:47] VITALS: BP 117/66
[2018-01-13 06:23] VITALS: BP 110/78
[2018-01-13] MEDS: LevETIRAcetam 500 MG TABLET PO SCH ×2 (08:17→17:17)
[2018-01-13] MEDS: VENLAFAXINE HCL 75 MG ER CAPSULE PO SCH (08:17)
[2018-01-13] MEDS: ARIPiprazole 15 MG TABLET PO SCH (08:17)
[2018-01-13 08:41] VITALS: BP 106/75
[2018-01-13] MEDS: LORazepam 2 MG TABLET PO PRN ×3 (10:59→22:01)
[2018-01-13] MEDS: HALOPERIDOL 5 MG TABLET PO PRN ×3 (10:59→22:01)
[2018-01-13 16:10] VITALS: BP 118/73
[2018-01-13] MEDS: BENZOCAINE 10% 7 GM GEL TP PRN (17:59)
[2018-01-14 05:52] VITALS: BP 120/74
[2018-01-14] MEDS: ARIPiprazole 15 MG TABLET PO SCH (08:26)
[2018-01-14] MEDS: VENLAFAXINE HCL 75 MG ER CAPSULE PO SCH (08:26)
[2018-01-14] MEDS: LevETIRAcetam 500 MG TABLET PO SCH ×2 (08:27→16:38)
[2018-01-14 08:30] VITALS: BP 131/66
[2018-01-14] MEDS: ARIPiprazole LAUROXIL ER SUSPENSION 882 MG/3.2 ML SYRINGE IM SCH (09:52)
[2018-01-14] MEDS: BENZOCAINE 10% 7 GM GEL TP PRN (10:27)
[2018-01-14] MEDS: LORazepam 2 MG TABLET PO PRN (12:30)
[2018-01-14] MEDS: HALOPERIDOL 5 MG TABLET PO PRN (12:31)
[2018-01-14 16:37] VITALS: BP 121/69
[2018-01-15 01:19] VITALS: BP 103/68
[2018-01-15 08:35] VITALS: BP 131/67
[2018-01-15] MEDS: ARIPiprazole 15 MG TABLET PO SCH (08:37)
[2018-01-15] MEDS: VENLAFAXINE HCL 75 MG ER CAPSULE PO SCH (08:37)
[2018-01-15] MEDS: LevETIRAcetam 500 MG TABLET PO SCH ×2 (08:38→16:51)
[2018-01-15] MEDS: HALOPERIDOL 5 MG TABLET PO PRN ×2 (10:02→16:52)
[2018-01-15] MEDS: LORazepam 2 MG TABLET PO PRN ×2 (10:02→16:51)
[2018-01-15 16:27] VITALS: BP 114/67
[2018-01-16 07:11] VITALS: BP 106/72
[2018-01-16 08:13] VITALS: BP 129/73
[2018-01-16] MEDS: VENLAFAXINE HCL 75 MG ER CAPSULE PO SCH (08:14)
[2018-01-16] MEDS: ARIPiprazole 15 MG TABLET PO SCH (08:14)
[2018-01-16] MEDS: LevETIRAcetam 500 MG TABLET PO SCH ×2 (08:14→16:28)
[2018-01-16] MEDS: HALOPERIDOL 5 MG TABLET PO PRN ×2 (08:28→16:28)
[2018-01-16 16:11] VITALS: BP 117/70
[2018-01-16] MEDS: LORazepam 2 MG TABLET PO PRN (16:41)
[2018-01-17 06:10] VITALS: BP 124/78
[2018-01-17 08:21] VITALS: BP 115/67
[2018-01-17] MEDS: LevETIRAcetam 500 MG TABLET PO SCH ×2 (08:27→16:04)
[2018-01-17] MEDS: VENLAFAXINE HCL 75 MG ER CAPSULE PO SCH (08:27)
[2018-01-17] MEDS: ARIPiprazole 15 MG TABLET PO SCH (08:28)
[2018-01-17] MEDS: HALOPERIDOL 5 MG TABLET PO PRN ×2 (09:31→17:18)
[2018-01-17] MEDS: LORazepam 2 MG TABLET PO PRN ×2 (09:31→16:04)
[2018-01-17] MEDS: ACETAMINOPHEN 325 MG TABLET PO PRN (12:12)
[2018-01-17 16:09] VITALS: BP 122/66
[2018-01-18 06:35] VITALS: BP 109/63
[2018-01-18] MEDS: VENLAFAXINE HCL 75 MG ER CAPSULE PO SCH (08:25)
[2018-01-18] MEDS: LevETIRAcetam 500 MG TABLET PO SCH ×2 (08:25→16:20)
[2018-01-18] MEDS: ARIPiprazole 15 MG TABLET PO SCH (08:25)
[2018-01-18 08:43] VITALS: BP 102/61
[2018-01-18] MEDS: LORazepam 2 MG TABLET PO PRN ×2 (09:46→17:01)
[2018-01-18] MEDS: HALOPERIDOL 5 MG TABLET PO PRN ×2 (09:46→17:01)
[2018-01-18 16:12] VITALS: BP 114/74
[2018-01-19 01:00] VITALS: BP 105/75
[2018-01-19] MEDS: LevETIRAcetam 500 MG TABLET PO SCH ×2 (08:18→16:05)
[2018-01-19] MEDS: VENLAFAXINE HCL 75 MG ER CAPSULE PO SCH (08:18)
[2018-01-19] MEDS: ARIPiprazole 15 MG TABLET PO SCH (08:18)
[2018-01-19 08:33] VITALS: BP 109/60
[2018-01-19] MEDS: HALOPERIDOL 5 MG TABLET PO PRN ×2 (10:02→18:28)
[2018-01-19] MEDS: LORazepam 2 MG TABLET PO PRN ×2 (10:02→18:28)
[2018-01-19 16:16] VITALS: BP 110/73
[2018-01-20 00:34] VITALS: BP 117/69
[2018-01-20 08:29] VITALS: BP 106/64
[2018-01-20] MEDS: LevETIRAcetam 500 MG TABLET PO SCH ×2 (08:39→16:42)
[2018-01-20] MEDS: ARIPiprazole 15 MG TABLET PO SCH (08:39)
[2018-01-20] MEDS: VENLAFAXINE HCL 75 MG ER CAPSULE PO SCH (08:39)
[2018-01-20] MEDS: HALOPERIDOL 5 MG TABLET PO PRN ×2 (09:25→16:42)
[2018-01-20] MEDS: LORazepam 2 MG TABLET PO PRN ×2 (09:25→16:42)
[2018-01-20 16:09] VITALS: BP 113/74
[2018-01-20] MEDS: IBUPROFEN 400 MG TABLET PO PRN (16:43)
[2018-01-20] MEDS: ZOLPIDEM TARTRATE 10 MG TABLET PO PRN (20:50)
[2018-01-21 01:28] VITALS: BP 102/67
[2018-01-21] MEDS: LORazepam 2 MG TABLET PO PRN ×2 (08:27→16:18)
[2018-01-21] MEDS: HALOPERIDOL 5 MG TABLET PO PRN ×2 (08:27→16:18)
[2018-01-21] MEDS: ARIPiprazole 15 MG TABLET PO SCH (08:28)
[2018-01-21] MEDS: VENLAFAXINE HCL 75 MG ER CAPSULE PO SCH (08:28)
[2018-01-21] MEDS: LevETIRAcetam 500 MG TABLET PO SCH ×2 (08:28→16:18)
[2018-01-21 08:55] VITALS: BP 121/68
[2018-01-21 10:42] VITALS: BP 119/75
[2018-01-21] MEDS: IBUPROFEN 400 MG TABLET PO PRN (11:08)
[2018-01-21] MEDS ORDERED: LORazepam 2 MG/ML VIAL IM ONE (13:30)
[2018-01-21] MEDS ORDERED: LORazepam 2 MG/ML VIAL ONE (13:30)
[2018-01-21] MEDS ORDERED: DiphenhydrAMINE HCL 50 MG/ML VIAL IM ONE (13:30)
[2018-01-21] MEDS ORDERED: HALOPERIDOL LACTATE 5 MG/ML VIAL IM ONE (13:30)
[2018-01-21] MEDS ORDERED: HALOPERIDOL LACTATE 5 MG/ML VIAL ONE (13:31)
[2018-01-21] MEDS ORDERED: DiphenhydrAMINE HCL 50 MG/ML VIAL ONE (13:31)
[2018-01-21 16:35] VITALS: BP 122/67
[2018-01-21] MEDS: ZOLPIDEM TARTRATE 10 MG TABLET PO PRN (20:22)
[2018-01-22 06:31] VITALS: BP 125/62
[2018-01-22] MEDS: LevETIRAcetam 500 MG TABLET PO SCH ×2 (08:09→17:05)
[2018-01-22] MEDS: ARIPiprazole 15 MG TABLET PO SCH (08:09)
[2018-01-22] MEDS: VENLAFAXINE HCL 75 MG ER CAPSULE PO SCH (08:09)
[2018-01-22 08:21] VITALS: BP 110/70
[2018-01-22] MEDS: LORazepam 2 MG TABLET PO PRN ×2 (09:32→16:12)
[2018-01-22] MEDS: HALOPERIDOL 5 MG TABLET PO PRN ×2 (09:32→16:12)
[2018-01-22 16:26] VITALS: BP 112/67
[2018-01-22] MEDS: ZOLPIDEM TARTRATE 10 MG TABLET PO PRN (21:26)
[2018-01-23 05:37] VITALS: BP 118/70
[2018-01-23 08:09] VITALS: BP 100/60
[2018-01-23] MEDS: ARIPiprazole 15 MG TABLET PO SCH (08:24)
[2018-01-23] MEDS: LevETIRAcetam 500 MG TABLET PO SCH ×2 (08:25→16:20)
[2018-01-23] MEDS: VENLAFAXINE HCL 75 MG ER CAPSULE PO SCH (08:25)
[2018-01-23 10:30] VITALS: BP 115/70
[2018-01-23] MEDS: HALOPERIDOL 5 MG TABLET PO PRN ×2 (10:44→16:21)
[2018-01-23] MEDS: LORazepam 2 MG TABLET PO PRN ×2 (10:44→16:21)
[2018-01-23 16:00] VITALS: BP 114/68
[2018-01-23] MEDS: MAG HYDROX/AL HYDROX/SIMETH ES 30 ML SUSPENSION UDCUP PO PRN (16:21)
[2018-01-23] MEDS: ZOLPIDEM TARTRATE 10 MG TABLET PO PRN (20:07)
[2018-01-24 00:30] VITALS: BP 118/69
[2018-01-24] MEDS: LevETIRAcetam 500 MG TABLET PO SCH ×2 (08:08→16:21)
[2018-01-24] MEDS: ARIPiprazole 15 MG TABLET PO SCH (08:09)
[2018-01-24] MEDS: VENLAFAXINE HCL 75 MG ER CAPSULE PO SCH (08:09)
[2018-01-24 08:20] VITALS: BP 118/71
[2018-01-24] MEDS: LORazepam 2 MG TABLET PO PRN ×2 (08:48→17:32)
[2018-01-24] MEDS: HALOPERIDOL 5 MG TABLET PO PRN ×2 (08:48→17:32)
[2018-01-24 16:06] VITALS: BP 121/71
[2018-01-24 17:28] VITALS: BP 121/75
[2018-01-25 04:41] VITALS: BP 118/78
[2018-01-25 08:09] VITALS: BP 115/64
[2018-01-25] MEDS: LevETIRAcetam 500 MG TABLET PO SCH ×2 (08:35→16:01)
[2018-01-25] MEDS: VENLAFAXINE HCL 75 MG ER CAPSULE PO SCH (08:35)
[2018-01-25] MEDS: ARIPiprazole 15 MG TABLET PO SCH (08:35)
[2018-01-25] MEDS: IBUPROFEN 400 MG TABLET PO PRN (12:57)
[2018-01-25] MEDS: HALOPERIDOL 5 MG TABLET PO PRN ×2 (13:33→17:43)
[2018-01-25] MEDS: LORazepam 2 MG TABLET PO PRN ×2 (13:33→17:43)
[2018-01-25] MEDS: MAG HYDROX/AL HYDROX/SIMETH ES 30 ML SUSPENSION UDCUP PO PRN (16:01)
[2018-01-25 16:06] VITALS: BP 115/69
[2018-01-25] MEDS: ZOLPIDEM TARTRATE 10 MG TABLET PO PRN (20:45)
[2018-01-26 05:55] VITALS: BP 117/66
[2018-01-26 08:32] VITALS: BP 124/76
[2018-01-26] MEDS: LevETIRAcetam 500 MG TABLET PO SCH ×2 (08:35→16:07)
[2018-01-26] MEDS: ARIPiprazole 15 MG TABLET PO SCH (08:35)
[2018-01-26] MEDS: VENLAFAXINE HCL 75 MG ER CAPSULE PO SCH (08:35)
[2018-01-26] MEDS: LORazepam 2 MG TABLET PO PRN ×3 (08:35→20:42)
[2018-01-26] MEDS: HALOPERIDOL 5 MG TABLET PO PRN ×3 (08:51→20:43)
[2018-01-26 17:23] VITALS: BP 122/74
[2018-01-27 07:30] VITALS: BP 115/67
[2018-01-27 08:11] VITALS: BP 114/68
[2018-01-27] MEDS: LevETIRAcetam 500 MG TABLET PO SCH ×2 (09:16→16:14)
[2018-01-27] MEDS: ARIPiprazole 15 MG TABLET PO SCH (09:16)
[2018-01-27] MEDS: VENLAFAXINE HCL 75 MG ER CAPSULE PO SCH (09:19)
[2018-01-27] MEDS: MAG HYDROX/AL HYDROX/SIMETH ES 30 ML SUSPENSION UDCUP PO PRN (12:54)
[2018-01-27 16:00] VITALS: BP 126/75
[2018-01-27] MEDS: HALOPERIDOL 5 MG TABLET PO PRN (16:16)
[2018-01-27] MEDS: LORazepam 2 MG TABLET PO PRN (16:16)
[2018-01-28 02:30] VITALS: BP 116/78
[2018-01-28] MEDS: LevETIRAcetam 500 MG TABLET PO SCH ×2 (08:12→16:57)
[2018-01-28] MEDS: VENLAFAXINE HCL 75 MG ER CAPSULE PO SCH (08:12)
[2018-01-28] MEDS: HALOPERIDOL 5 MG TABLET PO PRN ×2 (08:12→17:49)
[2018-01-28] MEDS: ARIPiprazole 15 MG TABLET PO SCH (08:12)
[2018-01-28] MEDS: LORazepam 2 MG TABLET PO PRN ×2 (08:12→17:49)
[2018-01-28 08:14] VITALS: BP 116/68
[2018-01-28] MEDS ORDERED: TUBERCULIN, PURIFIED PROTEIN DERIVATIVE 5 TU/0.1 ML SYG ID ONE (10:45)
[2018-01-28 16:08] VITALS: BP 111/68
[2018-01-29 05:00] VITALS: BP 116/64
[2018-01-29] MEDS: ARIPiprazole 15 MG TABLET PO SCH (08:21)
[2018-01-29] MEDS: VENLAFAXINE HCL 75 MG ER CAPSULE PO SCH (08:21)
[2018-01-29] MEDS: LevETIRAcetam 500 MG TABLET PO SCH ×2 (08:22→16:10)
[2018-01-29 08:23] VITALS: BP 112/73
[2018-01-29] MEDS: HALOPERIDOL 5 MG TABLET PO PRN ×2 (08:23→16:20)
[2018-01-29] MEDS: LORazepam 2 MG TABLET PO PRN ×2 (10:25→16:20)
[2018-01-29 16:00] VITALS: BP 114/70
[2018-01-30 06:58] VITALS: BP 112/66
[2018-01-30 08:31] VITALS: BP 107/65
[2018-01-30] MEDS: LevETIRAcetam 500 MG TABLET PO SCH ×2 (08:37→16:50)
[2018-01-30] MEDS: ARIPiprazole 15 MG TABLET PO SCH (08:38)
[2018-01-30] MEDS: VENLAFAXINE HCL 75 MG ER CAPSULE PO SCH (08:38)
[2018-01-30] MEDS: HALOPERIDOL 5 MG TABLET PO PRN ×2 (10:00→16:50)
[2018-01-30] MEDS: LORazepam 2 MG TABLET PO PRN ×2 (10:00→16:50)
[2018-01-30 16:11] VITALS: BP 121/69
[2018-01-30] MEDS: ZOLPIDEM TARTRATE 10 MG TABLET PO PRN (20:30)
[2018-01-31 01:09] VITALS: BP 131/64
[2018-01-31 06:26] VITALS: BP 116/60
[2018-01-31 08:37] VITALS: BP 105/57
[2018-01-31] MEDS: ARIPiprazole 15 MG TABLET PO SCH (08:41)
[2018-01-31] MEDS: LevETIRAcetam 500 MG TABLET PO SCH ×2 (08:41→16:37)
[2018-01-31] MEDS: VENLAFAXINE HCL 75 MG ER CAPSULE PO SCH (08:41)
[2018-01-31] MEDS: LORazepam 2 MG TABLET PO PRN ×2 (09:49→17:25)
[2018-01-31] MEDS: HALOPERIDOL 5 MG TABLET PO PRN ×2 (09:49→16:38)
[2018-01-31] MEDS: IBUPROFEN 400 MG TABLET PO PRN (12:05)
[2018-01-31 16:17] VITALS: BP 112/68
[2018-02-01 00:12] VITALS: BP 102/67
[2018-02-01 08:02] VITALS: BP 105/61
[2018-02-01] MEDS: VENLAFAXINE HCL 75 MG ER CAPSULE PO SCH (08:11)
[2018-02-01] MEDS: LevETIRAcetam 500 MG TABLET PO SCH ×2 (08:11→16:29)
[2018-02-01] MEDS: ARIPiprazole 15 MG TABLET PO SCH (08:11)
[2018-02-01] MEDS: LORazepam 2 MG TABLET PO PRN ×2 (10:57→16:29)
[2018-02-01] MEDS: HALOPERIDOL 5 MG TABLET PO PRN ×2 (10:57→16:29)
[2018-02-01 16:16] VITALS: BP 126/72
[2018-02-02 06:59] VITALS: BP 102/60
[2018-02-02 08:06] VITALS: BP 122/72
[2018-02-02] MEDS: ARIPiprazole 15 MG TABLET PO SCH (08:25)
[2018-02-02] MEDS: VENLAFAXINE HCL 75 MG ER CAPSULE PO SCH (08:25)
[2018-02-02] MEDS: LevETIRAcetam 500 MG TABLET PO SCH ×2 (08:25→16:07)
[2018-02-02] MEDS: LORazepam 2 MG TABLET PO PRN ×2 (13:11→20:44)
[2018-02-02] MEDS: HALOPERIDOL 5 MG TABLET PO PRN ×2 (13:11→20:44)
[2018-02-02 17:07] VITALS: BP 109/62
[2018-02-03 02:56] VITALS: BP 112/70
[2018-02-03 08:13] VITALS: BP 108/57
[2018-02-03] MEDS: ARIPiprazole 15 MG TABLET PO SCH (09:27)
[2018-02-03] MEDS: VENLAFAXINE HCL 75 MG ER CAPSULE PO SCH (09:27)
[2018-02-03] MEDS: LevETIRAcetam 500 MG TABLET PO SCH ×2 (09:27→17:13)
[2018-02-03] MEDS: LORazepam 2 MG TABLET PO PRN ×2 (10:52→17:13)
[2018-02-03] MEDS: HALOPERIDOL 5 MG TABLET PO PRN ×2 (12:27→17:13)
[2018-02-03 16:27] VITALS: BP 110/71
[2018-02-03] MEDS: ZOLPIDEM TARTRATE 10 MG TABLET PO PRN (20:12)
[2018-02-04 05:00] VITALS: BP 107/60
[2018-02-04 08:05] VITALS: BP 108/77
[2018-02-04] MEDS: VENLAFAXINE HCL 75 MG ER CAPSULE PO SCH (08:34)
[2018-02-04] MEDS: ARIPiprazole 15 MG TABLET PO SCH (08:34)
[2018-02-04] MEDS: HALOPERIDOL 5 MG TABLET PO PRN ×2 (08:34→17:26)
[2018-02-04] MEDS: LORazepam 2 MG TABLET PO PRN ×2 (08:34→17:26)
[2018-02-04] MEDS: LevETIRAcetam 500 MG TABLET PO SCH ×2 (08:34→16:11)
[2018-02-04] MEDS: IBUPROFEN 400 MG TABLET PO PRN (14:12)
[2018-02-04 16:45] VITALS: BP 116/71
[2018-02-05 06:42] VITALS: BP 105/60
[2018-02-05] MEDS: ARIPiprazole 15 MG TABLET PO SCH (09:06)
[2018-02-05] MEDS: LevETIRAcetam 500 MG TABLET PO SCH ×2 (09:06→17:20)
[2018-02-05] MEDS: VENLAFAXINE HCL 75 MG ER CAPSULE PO SCH (09:06)
[2018-02-05 09:25] VITALS: BP 107/57
[2018-02-05] MEDS: LORazepam 2 MG TABLET PO PRN ×2 (10:45→15:00)
[2018-02-05] MEDS: HALOPERIDOL 5 MG TABLET PO PRN ×2 (10:45→15:00)
[2018-02-05 17:17] VITALS: BP 110/60
[2018-02-06 00:25] VITALS: BP 126/76
[2018-02-06 08:22] VITALS: BP 108/60
[2018-02-06] MEDS: ARIPiprazole 15 MG TABLET PO SCH (09:03)
[2018-02-06] MEDS: LevETIRAcetam 500 MG TABLET PO SCH ×2 (09:04→16:05)
[2018-02-06] MEDS: VENLAFAXINE HCL 75 MG ER CAPSULE PO SCH (09:04)
[2018-02-06] MEDS: LORazepam 2 MG TABLET PO PRN ×2 (10:28→16:05)
[2018-02-06] MEDS: HALOPERIDOL 5 MG TABLET PO PRN ×2 (10:29→16:05)
[2018-02-06 11:00] VITALS: BP 114/77
[2018-02-06 11:07] VITALS: BP 114/77
[2018-02-06] MEDS: IBUPROFEN 400 MG TABLET PO PRN (11:07)
[2018-02-06 16:17] VITALS: BP 113/61
[2018-02-07 07:06] VITALS: BP 136/64
[2018-02-07 08:12] VITALS: BP 107/56
[2018-02-07] MEDS: VENLAFAXINE HCL 75 MG ER CAPSULE PO SCH (08:31)
[2018-02-07] MEDS: LevETIRAcetam 500 MG TABLET PO SCH ×2 (08:31→16:04)
[2018-02-07] MEDS: ARIPiprazole 15 MG TABLET PO SCH (08:32)
[2018-02-07] MEDS: LORazepam 2 MG TABLET PO PRN ×2 (10:18→15:56)
[2018-02-07] MEDS: HALOPERIDOL 5 MG TABLET PO PRN ×2 (10:18→15:56)
[2018-02-07] MEDS: IBUPROFEN 400 MG TABLET PO PRN (14:13)
[2018-02-07 16:52] VITALS: BP 108/71
[2018-02-07 17:48] VITALS: BP 112/70
[2018-02-07] MEDS: ACETAMINOPHEN 325 MG TABLET PO PRN (17:48)
[2018-02-08 05:53] VITALS: BP 115/75
[2018-02-08] MEDS: LORazepam 2 MG TABLET PO PRN ×3 (08:24→17:17)
[2018-02-08] MEDS: ARIPiprazole 15 MG TABLET PO SCH (08:24)
[2018-02-08] MEDS: LevETIRAcetam 500 MG TABLET PO SCH ×2 (08:24→16:13)
[2018-02-08] MEDS: VENLAFAXINE HCL 75 MG ER CAPSULE PO SCH (08:24)
[2018-02-08 08:44] VITALS: BP 122/81
[2018-02-08] MEDS: IBUPROFEN 400 MG TABLET PO PRN (09:53)
[2018-02-08] MEDS: ACETAMINOPHEN 325 MG TABLET PO PRN (10:52)
[2018-02-08] MEDS: HALOPERIDOL 5 MG TABLET PO PRN ×2 (13:13→17:17)
[2018-02-08 16:06] VITALS: BP 124/73
[2018-02-08] MEDS: BACITRACIN 28.4 GM OINTMENT TP SCH (16:15)
[2018-02-09 00:08] VITALS: BP 100/75
[2018-02-09 08:21] VITALS: BP 114/64
[2018-02-09] MEDS: LevETIRAcetam 500 MG TABLET PO SCH ×2 (08:48→16:13)
[2018-02-09] MEDS: ARIPiprazole 15 MG TABLET PO SCH (08:48)
[2018-02-09] MEDS: VENLAFAXINE HCL 75 MG ER CAPSULE PO SCH (08:49)
[2018-02-09] MEDS: BACITRACIN 28.4 GM OINTMENT TP SCH ×2 (09:16→16:13)
[2018-02-09] MEDS: HALOPERIDOL 5 MG TABLET PO PRN ×3 (09:32→17:44)
[2018-02-09] MEDS: LORazepam 2 MG TABLET PO PRN ×3 (09:32→17:44)
[2018-02-09 16:15] VITALS: BP 118/74
[2018-02-10 05:55] VITALS: BP 123/63
[2018-02-10 08:10] VITALS: BP 124/73
[2018-02-10] MEDS: LevETIRAcetam 500 MG TABLET PO SCH ×2 (08:23→16:07)
[2018-02-10] MEDS: LORazepam 2 MG TABLET PO PRN ×4 (08:23→20:31)
[2018-02-10] MEDS: ARIPiprazole 15 MG TABLET PO SCH (08:23)
[2018-02-10] MEDS: VENLAFAXINE HCL 75 MG ER CAPSULE PO SCH (08:23)
[2018-02-10] MEDS: BACITRACIN 28.4 GM OINTMENT TP SCH ×2 (08:25→16:07)
[2018-02-10] MEDS: HALOPERIDOL 5 MG TABLET PO PRN ×2 (08:36→16:06)
[2018-02-10 16:04] VITALS: BP 114/76
[2018-02-10] MEDS: IBUPROFEN 400 MG TABLET PO PRN (16:07)
[2018-02-10] MEDS: ZOLPIDEM TARTRATE 10 MG TABLET PO PRN (20:31)
[2018-02-11 08:08] VITALS: BP 115/63
[2018-02-11] MEDS: LevETIRAcetam 500 MG TABLET PO SCH ×2 (08:24→17:11)
[2018-02-11] MEDS: ARIPiprazole 15 MG TABLET PO SCH (08:24)
[2018-02-11] MEDS: BACITRACIN 28.4 GM OINTMENT TP SCH ×2 (08:25→17:11)
[2018-02-11] MEDS: VENLAFAXINE HCL 75 MG ER CAPSULE PO SCH (08:25)
[2018-02-11] MEDS: HALOPERIDOL 5 MG TABLET PO PRN ×2 (12:33→18:40)
[2018-02-11] MEDS: LORazepam 2 MG TABLET PO PRN ×2 (12:33→18:40)
[2018-02-11 16:37] VITALS: BP 122/72
[2018-02-11 18:41] VITALS: BP 137/77
[2018-02-11] MEDS: IBUPROFEN 400 MG TABLET PO PRN (18:48)
[2018-02-12 01:35] VITALS: BP 111/76
[2018-02-12] MEDS: ACETAMINOPHEN 325 MG TABLET PO PRN (01:40)
[2018-02-12 08:06] VITALS: BP 115/61
[2018-02-12] MEDS: ARIPiprazole 15 MG TABLET PO SCH (08:33)
[2018-02-12] MEDS: VENLAFAXINE HCL 75 MG ER CAPSULE PO SCH (08:33)
[2018-02-12] MEDS: LevETIRAcetam 500 MG TABLET PO SCH ×2 (08:34→17:00)
[2018-02-12] MEDS: BACITRACIN 28.4 GM OINTMENT TP SCH ×2 (08:41→17:01)
[2018-02-12] MEDS: HALOPERIDOL 5 MG TABLET PO PRN ×2 (10:47→17:00)
[2018-02-12] MEDS: LORazepam 2 MG TABLET PO PRN ×2 (11:06→17:00)
[2018-02-12 17:32] VITALS: BP 111/77
[2018-02-12 17:33] VITALS: BP 108/75
[2018-02-12] MEDS: IBUPROFEN 400 MG TABLET PO PRN (17:49)
[2018-02-12] MEDS: ZOLPIDEM TARTRATE 10 MG TABLET PO PRN (20:07)
[2018-02-13 01:09] VITALS: BP 111/62
[2018-02-13 08:14] VITALS: BP 102/66
[2018-02-13] MEDS: VENLAFAXINE HCL 75 MG ER CAPSULE PO SCH (08:27)
[2018-02-13] MEDS: LORazepam 2 MG TABLET PO PRN ×3 (08:27→18:00)
[2018-02-13] MEDS: ARIPiprazole 15 MG TABLET PO SCH (08:27)
[2018-02-13] MEDS: HALOPERIDOL 5 MG TABLET PO PRN ×3 (08:27→18:00)
[2018-02-13] MEDS: LevETIRAcetam 500 MG TABLET PO SCH ×2 (08:27→16:16)
[2018-02-13] MEDS: BACITRACIN 28.4 GM OINTMENT TP SCH ×2 (09:11→16:17)
[2018-02-13] MEDS: ARIPiprazole LAUROXIL ER SUSPENSION 882 MG/3.2 ML SYRINGE IM SCH (09:25)
[2018-02-13 16:00] VITALS: BP 112/71
[2018-02-14 04:07] VITALS: BP 100/68
[2018-02-14 08:04] VITALS: BP 116/72
[2018-02-14] MEDS: ARIPiprazole 15 MG TABLET PO SCH (09:03)
[2018-02-14] MEDS: LevETIRAcetam 500 MG TABLET PO SCH ×2 (09:03→16:11)
[2018-02-14] MEDS: VENLAFAXINE HCL 75 MG ER CAPSULE PO SCH (09:04)
[2018-02-14] MEDS: BACITRACIN 28.4 GM OINTMENT TP SCH ×2 (09:07→16:11)
[2018-02-14] MEDS: HALOPERIDOL 5 MG TABLET PO PRN ×2 (10:13→16:43)
[2018-02-14] MEDS: LORazepam 2 MG TABLET PO PRN ×2 (10:13→16:43)
[2018-02-14 16:04] VITALS: BP 109/72
[2018-02-14] MEDS: IBUPROFEN 400 MG TABLET PO PRN (17:25)
[2018-02-14 17:26] VITALS: BP 110/68
[2018-02-15 01:50] VITALS: BP 116/77
[2018-02-15] MEDS: HALOPERIDOL 5 MG TABLET PO PRN ×3 (02:42→18:23)
[2018-02-15] MEDS: LORazepam 2 MG TABLET PO PRN ×3 (02:42→18:23)
[2018-02-15 08:25] VITALS: BP 125/73
[2018-02-15] MEDS: ARIPiprazole 15 MG TABLET PO SCH (09:01)
[2018-02-15] MEDS: LevETIRAcetam 500 MG TABLET PO SCH ×2 (09:01→16:13)
[2018-02-15] MEDS: BACITRACIN 28.4 GM OINTMENT TP SCH ×2 (09:01→16:13)
[2018-02-15] MEDS: VENLAFAXINE HCL 75 MG ER CAPSULE PO SCH (09:01)
[2018-02-15 16:20] VITALS: BP 109/75
[2018-02-15] MEDS: IBUPROFEN 400 MG TABLET PO PRN (16:50)
[2018-02-15 17:50] VITALS: BP 112/72
[2018-02-16 00:06] VITALS: BP 116/73
[2018-02-16] MEDS: HALOPERIDOL 5 MG TABLET PO PRN ×3 (00:09→16:04)
[2018-02-16] MEDS: LORazepam 2 MG TABLET PO PRN ×3 (00:09→16:04)
[2018-02-16 08:04] VITALS: BP 118/74
[2018-02-16] MEDS: ARIPiprazole 15 MG TABLET PO SCH (08:48)
[2018-02-16] MEDS: VENLAFAXINE HCL 75 MG ER CAPSULE PO SCH (08:48)
[2018-02-16] MEDS: LevETIRAcetam 500 MG TABLET PO SCH ×2 (08:48→16:04)
[2018-02-16] MEDS: BACITRACIN 28.4 GM OINTMENT TP SCH ×2 (08:49→17:13)
[2018-02-16] MEDS ORDERED: BENZTROPINE MESYLATE 1 MG/ML 2 ML VIAL IM ONE (12:15)
[2018-02-16 16:20] VITALS: BP 121/78
[2018-02-17] MEDS: ZOLPIDEM TARTRATE 10 MG TABLET PO PRN (00:35)
[2018-02-17 00:36] VITALS: BP 122/76
[2018-02-17 08:05] VITALS: BP 110/74
[2018-02-17] MEDS: ARIPiprazole 15 MG TABLET PO SCH (08:06)
[2018-02-17] MEDS: HALOPERIDOL 5 MG TABLET PO PRN ×3 (08:06→19:01)
[2018-02-17] MEDS: BACITRACIN 28.4 GM OINTMENT TP SCH ×2 (08:06→16:48)
[2018-02-17] MEDS: LORazepam 2 MG TABLET PO PRN ×3 (08:06→19:01)
[2018-02-17] MEDS: LevETIRAcetam 500 MG TABLET PO SCH ×2 (08:06→16:48)
[2018-02-17] MEDS: VENLAFAXINE HCL 75 MG ER CAPSULE PO SCH (08:06)
[2018-02-17 16:00] VITALS: BP 110/69
[2018-02-18 06:06] VITALS: BP 117/72
[2018-02-18 08:18] VITALS: BP 118/78
[2018-02-18] MEDS: LevETIRAcetam 500 MG TABLET PO SCH ×2 (08:49→16:32)
[2018-02-18] MEDS: LORazepam 2 MG TABLET PO PRN ×2 (08:49→16:32)
[2018-02-18] MEDS: ARIPiprazole 15 MG TABLET PO SCH (08:49)
[2018-02-18] MEDS: HALOPERIDOL 5 MG TABLET PO PRN ×2 (08:49→16:32)
[2018-02-18] MEDS: VENLAFAXINE HCL 75 MG ER CAPSULE PO SCH (08:49)
[2018-02-18] MEDS: BACITRACIN 28.4 GM OINTMENT TP SCH (11:08)
[2018-02-18 16:00] VITALS: BP 105/62
[2018-02-19 00:16] VITALS: BP 104/68
[2018-02-19] MEDS: LevETIRAcetam 500 MG TABLET PO SCH ×2 (08:15→16:53)
[2018-02-19] MEDS: ARIPiprazole 15 MG TABLET PO SCH (08:15)
[2018-02-19] MEDS: VENLAFAXINE HCL 75 MG ER CAPSULE PO SCH (08:16)
[2018-02-19 08:48] VITALS: BP 111/61
[2018-02-19] MEDS: LORazepam 2 MG TABLET PO PRN ×2 (09:56→16:53)
[2018-02-19] MEDS: HALOPERIDOL 5 MG TABLET PO PRN (09:56)
[2018-02-19 16:32] VITALS: BP 122/74
[2018-02-19] MEDS: ZOLPIDEM TARTRATE 10 MG TABLET PO PRN (20:12)
[2018-02-20 01:10] VITALS: BP 120/70
[2018-02-20] MEDS: LevETIRAcetam 500 MG TABLET PO SCH ×2 (08:16→16:20)
[2018-02-20] MEDS: VENLAFAXINE HCL 75 MG ER CAPSULE PO SCH (08:16)
[2018-02-20] MEDS: ARIPiprazole 15 MG TABLET PO SCH (08:16)
[2018-02-20 08:24] VITALS: BP 116/65
[2018-02-20] MEDS: LORazepam 2 MG TABLET PO PRN (16:20)
[2018-02-20] MEDS: HALOPERIDOL 5 MG TABLET PO PRN (16:20)
[2018-02-20 16:26] VITALS: BP 113/71
[2018-02-20] MEDS: IBUPROFEN 400 MG TABLET PO PRN (17:49)
[2018-02-20] MEDS: ZOLPIDEM TARTRATE 10 MG TABLET PO PRN (20:58)
[2018-02-21 05:02] VITALS: BP 115/76
[2018-02-21] MEDS: LORazepam 2 MG TABLET PO PRN ×2 (07:23→14:58)
[2018-02-21] MEDS: HALOPERIDOL 5 MG TABLET PO PRN ×2 (07:23→14:58)
[2018-02-21 08:27] VITALS: BP 112/71
[2018-02-21] MEDS ORDERED: ARIPiprazole 15 MG TABLET PO SCH (09:00)
[2018-02-21] MEDS: LevETIRAcetam 500 MG TABLET PO SCH ×2 (09:12→16:16)
[2018-02-21] MEDS: VENLAFAXINE HCL 75 MG ER CAPSULE PO SCH (09:12)
[2018-02-21] MEDS: ARIPiprazole 5 MG TABLET PO SCH (09:55)
[2018-02-21 16:17] VITALS: BP 121/79
[2018-02-22 04:02] VITALS: BP 118/70
[2018-02-22] MEDS: LevETIRAcetam 500 MG TABLET PO SCH ×2 (08:33→16:05)
[2018-02-22] MEDS: ARIPiprazole 5 MG TABLET PO SCH (08:33)
[2018-02-22 08:35] VITALS: BP 118/80
[2018-02-22] MEDS: VENLAFAXINE HCL 75 MG ER CAPSULE PO SCH (09:26)
[2018-02-22] MEDS: HALOPERIDOL 5 MG TABLET PO PRN ×2 (10:13→16:05)
[2018-02-22] MEDS: LORazepam 2 MG TABLET PO PRN ×2 (10:13→16:05)
[2018-02-22] MEDS: BENZTROPINE MESYLATE 0.5 MG TABLET PO SCH (16:06)
[2018-02-22 16:29] VITALS: BP 105/69
[2018-02-23 07:25] VITALS: BP 110/72
[2018-02-23] MEDS: ARIPiprazole 5 MG TABLET PO SCH (08:43)
[2018-02-23] MEDS: BENZTROPINE MESYLATE 0.5 MG TABLET PO SCH ×2 (08:43→16:06)
[2018-02-23] MEDS: LevETIRAcetam 500 MG TABLET PO SCH ×2 (08:43→16:06)
[2018-02-23] MEDS: VENLAFAXINE HCL 75 MG ER CAPSULE PO SCH (08:43)
[2018-02-23 08:47] VITALS: BP 108/70
[2018-02-23] MEDS: LORazepam 2 MG TABLET PO PRN (16:06)
[2018-02-23] MEDS: HALOPERIDOL 5 MG TABLET PO PRN (16:06)
[2018-02-23 16:43] VITALS: BP 132/82
[2018-02-23] MEDS: ZOLPIDEM TARTRATE 10 MG TABLET PO PRN (20:31)
[2018-02-24 00:52] VITALS: BP 107/72
[2018-02-24 08:00] VITALS: BP 99/77
[2018-02-24] MEDS: HALOPERIDOL 5 MG TABLET PO PRN ×3 (08:41→20:32)
[2018-02-24] MEDS: VENLAFAXINE HCL 75 MG ER CAPSULE PO SCH (08:41)
[2018-02-24] MEDS: ARIPiprazole 5 MG TABLET PO SCH (08:41)
[2018-02-24] MEDS: LevETIRAcetam 500 MG TABLET PO SCH ×2 (08:41→17:00)
[2018-02-24] MEDS: LORazepam 2 MG TABLET PO PRN ×3 (08:41→20:32)
[2018-02-24] MEDS: BENZTROPINE MESYLATE 0.5 MG TABLET PO SCH ×2 (08:41→17:00)
[2018-02-24] MEDS ORDERED: TUBERCULIN, PURIFIED PROTEIN DERIVATIVE 5 TU/0.1 ML SYG ID ONE (14:30)
[2018-02-24 16:00] VITALS: BP 123/71
[2018-02-24 20:31] VITALS: BP 115/75
[2018-02-24] MEDS: ZOLPIDEM TARTRATE 10 MG TABLET PO PRN (21:18)
[2018-02-25 06:39] VITALS: BP 112/76
[2018-02-25 08:17] VITALS: BP 94/60
[2018-02-25] MEDS: BENZTROPINE MESYLATE 0.5 MG TABLET PO SCH ×2 (08:45→16:03)
[2018-02-25] MEDS: VENLAFAXINE HCL 75 MG ER CAPSULE PO SCH (08:45)
[2018-02-25] MEDS: ARIPiprazole 5 MG TABLET PO SCH (08:46)
[2018-02-25] MEDS: LevETIRAcetam 500 MG TABLET PO SCH ×2 (08:46→16:03)
[2018-02-25] MEDS: LORazepam 2 MG TABLET PO PRN ×2 (13:01→20:31)
[2018-02-25] MEDS: HALOPERIDOL 5 MG TABLET PO PRN (13:01)
[2018-02-25 16:14] VITALS: BP 115/65
[2018-02-25] MEDS: ZOLPIDEM TARTRATE 10 MG TABLET PO PRN (20:31)
[2018-02-26 00:45] VITALS: BP 126/71
[2018-02-26 08:19] VITALS: BP 108/63
[2018-02-26] MEDS: LevETIRAcetam 500 MG TABLET PO SCH ×2 (08:21→16:36)
[2018-02-26] MEDS: VENLAFAXINE HCL 75 MG ER CAPSULE PO SCH (08:22)
[2018-02-26] MEDS: ARIPiprazole 5 MG TABLET PO SCH (08:22)
[2018-02-26] MEDS: BENZTROPINE MESYLATE 0.5 MG TABLET PO SCH ×2 (08:22→16:36)
[2018-02-26] MEDS: LORazepam 2 MG TABLET PO PRN ×2 (10:34→17:02)
[2018-02-26] MEDS: HALOPERIDOL 5 MG TABLET PO PRN ×2 (10:34→17:02)
[2018-02-26 16:00] VITALS: BP 115/66
[2018-02-27 00:30] VITALS: BP 110/69
[2018-02-27] MEDS: LevETIRAcetam 500 MG TABLET PO SCH (08:33)
[2018-02-27] MEDS: ARIPiprazole 5 MG TABLET PO SCH (08:33)
[2018-02-27 08:40] VITALS: BP 108/66
[2018-02-27] MEDS: VENLAFAXINE HCL 75 MG ER CAPSULE PO SCH (08:40)
[2018-02-27] MEDS: BENZTROPINE MESYLATE 0.5 MG TABLET PO SCH (08:40)
[2018-02-27] MEDS ORDERED: BENZ0.5T44 PO (12:47)
[2018-02-27] MEDS ORDERED: ARIP5TAB8 PO (12:47)
[2018-02-27] MEDS ORDERED: ARIP882S IM (12:47)
== END 2018-02-27 15:40 | disposition home or self-care (01) | DRG 750 ==
LOC: EMS 18:28 → B3A 19:37
PROVIDERS: ADMIT Psychiatry & Neurology Psychiatry; ATTEND Psychiatry & Neurology Child & Adolescent Psychiatry
DX: F20.9 Schizophrenia, unspecified (principal); G40.909 Epilepsy, unspecified, not intractable, without status epilepticus; F32.9 Major depressive disorder, single episode, unspecified; F60.3 Borderline personality disorder; K08.89 Other specified disorders of teeth and supporting structures; M10.9 Gout, unspecified; M19.90 Unspecified osteoarthritis, unspecified site; Z88.0 Allergy status to penicillin; Z98.51 Tubal ligation status; Z79.2 Long term (current) use of antibiotics; Z79.899 Other long term (current) drug therapy
CPT/HCPCS: 84443; 87081; 99285; G0480; J0515; J1200; J1630; J2060; J3535

== ENCOUNTER 2018-06-24 20:35 | Inpatient (IN) | payer MEDICAID ==
[~2018-06-24] VITALS: Ht 162.6 cm; Wt 93.4 kg
[~2018-06-24 20:35] MED LIST changes: -ARIP15TA2 PO; +ARIP5TAB8 PO; +ARIP882S IM; +BENZ0.5T44 PO; -CIP250 PO
[2018-06-24] MEDS ORDERED: ZOLPIDEM TARTRATE 10 MG TABLET PO PRN (21:15)
[2018-06-24] MEDS ORDERED: ACETAMINOPHEN 325 MG TABLET PO PRN (22:00)
[2018-06-24] MEDS ORDERED: ONDANSETRON HCL 4 MG TABLET PO PRN (22:00)
[2018-06-24] MEDS ORDERED: MAGNESIUM HYDROXIDE SUSPENSION 30 ML UDCUP PO PRN (22:00)
[2018-06-24] MEDS ORDERED: MAG HYDROX/AL HYDROX/SIMETH ES 30 ML SUSPENSION UDCUP PO PRN (22:00)
[2018-06-24] MEDS ORDERED: IBUPROFEN 400 MG TABLET PO PRN (22:00)
[2018-06-24] MEDS ORDERED: CloNIDine HCL 0.1 MG TABLET PO PRN (22:00)
[2018-06-24] MEDS ORDERED: DOCUSATE SODIUM 100 MG CAPSULE PO PRN (22:00)
[2018-06-24] MEDS ORDERED: NICOTINE 14 MG/24 HOUR PATCH TD PRN (22:00)
[2018-06-24] MEDS ORDERED: GuaiFENesin/D-METHORPHAN [SUGAR-FREE] 200-20MG/10 ML SYRUP UDCUP PO PRN (22:00)
[2018-06-24] MEDS ORDERED: ALBUTEROL SULFATE HFA 90 MCG/PUFF 8 GM INHALER IH PRN (22:00)
[2018-06-24] MEDS ORDERED: PETROLATUM,WHITE 71 GM JELLY TP PRN (22:00)
[2018-06-24] MEDS ORDERED: LOPERAMIDE HCL 2 MG CAPSULE PO PRN (22:00)
[2018-06-24 22:13] VITALS: BP 102/63
[2018-06-24] MEDS ORDERED: PERMETHRIN 5% 60 GM CREAM TP ONE (22:15)
[2018-06-25 07:14] VITALS: BP 128/76
[2018-06-25 08:41] VITALS: BP 105/63
[2018-06-25] MEDS ORDERED: PERMETHRIN 1% 60 ML LOTION TP ONE ×2 (08:45→15:00)
[2018-06-25 08:49] LABS: BASOPHILS % (AUTO) 0.3 % (0.0-2.0); HEMATOCRIT 40.3 % (36-46); HEMOGLOBIN 13.9 g/dL (12.0-16.0); LYMPHOCYTES # (AUTO) 1.8 K/uL (1.0-4.8); MEAN CORPUSCULAR HEMOGLOBIN 30.1 pg (26.0-34.0); MEAN CORPUSCULAR HGB CONC 34.5 G/dL (31.0-37.0); MEAN CORPUSCULAR VOLUME 87 fL (80-100); MONOCYTES # (AUTO) 0.7 K/uL (0.1-1.0); NEUTROPHILS # (AUTO) 4.2 K/uL (1.8-7.7); NEUTROPHILS % (AUTO) 58.7 % (40.0-70.0); PLATELET COUNT (AUTO) 409 K/uL (150-450); RED BLOOD CELL COUNT(AUTO) 4.62 MIL/uL (4.00-5.20); RED CELL DISTRIBUTION WIDTH 12.7 % (11.5-14.5)
[2018-06-25] MEDS: LevETIRAcetam 500 MG TABLET PO SCH ×2 (08:50→17:20)
[2018-06-25 09:42] LABS: HEMOGLOBIN A1C 5.4 % (4.5-6.2)
[2018-06-25 09:47] LABS: ALANINE AMINOTRANSFERASE 56 U/L (12-78); ALBUMIN 3.3 g/dL (3.4-5.0); ALKALINE PHOSPHATASE 65 U/L (46-116); ANION GAP 7 mmol/L (8-16); ASPARTATE AMINOTRANSFERASE 23 U/L (15-37); BILIRUBIN,TOTAL 0.4 mg/dL (0.1-1.0); CALCIUM, TOTAL 8.7 mg/dL (8.8-10.5); CARBON DIOXIDE 26 mmol/L (22-29); CHLORIDE 106 mmol/L (98-107); CHOLESTEROL 163 mg/dL (131-200); CREATININE 0.68 mg/dL (0.60-1.30); FREE T4 (FREE THYROXINE) 0.88 ng/dL (0.76-1.46); GLOMERULAR FILTR. RATE CALC > 60 mL/min (>60); GLUCOSE,RANDOM 88 mg/dL (70-110); HCG,QUANTITATIVE < 1 mIU/mL (0-6); HDL CHOLESTEROL 41 mg/dL (40-60); LDL CHOL (CALC.) 103 mg/dL (0-130); POTASSIUM 3.5 mmol/L (3.5-5.1); SODIUM SERUM 139 mmol/L (136-145); THYROID STIMULATING HORMONE 0.68 uIU/mL (0.36-3.74); TOTAL PROTEIN, SERUM 7.1 g/dL (6.4-8.2); TRIGLYCERIDES 97 mg/dL (15-150); UREA NITROGEN, BLOOD 11 mg/dL (7-18)
[2018-06-25] MEDS: BENZTROPINE MESYLATE 0.5 MG TABLET PO SCH ×2 (13:00→17:19)
[2018-06-25] MEDS: VENLAFAXINE HCL 75 MG ER CAPSULE PO SCH (13:00)
[2018-06-25] MEDS ORDERED: IVERMECTIN 3 MG TABLET PO ONE (15:00)
[2018-06-25 16:30] VITALS: BP 116/64
[2018-06-26] MEDS: LevETIRAcetam 500 MG TABLET PO SCH ×2 (08:25→17:09)
[2018-06-26] MEDS: BENZTROPINE MESYLATE 0.5 MG TABLET PO SCH ×2 (08:25→17:09)
[2018-06-26] MEDS: VENLAFAXINE HCL 75 MG ER CAPSULE PO SCH (08:25)
[2018-06-26 16:06] VITALS: BP 118/74
[2018-06-27 07:10] VITALS: BP 123/84
[2018-06-27 08:13] VITALS: BP 103/61
[2018-06-27] MEDS: BENZTROPINE MESYLATE 0.5 MG TABLET PO SCH ×2 (08:43→16:19)
[2018-06-27] MEDS: VENLAFAXINE HCL 75 MG ER CAPSULE PO SCH (08:43)
[2018-06-27] MEDS: LevETIRAcetam 500 MG TABLET PO SCH ×2 (08:43→16:19)
[2018-06-27 17:25] VITALS: BP 109/72
[2018-06-28 07:15] VITALS: BP 110/72
[2018-06-28 08:11] VITALS: BP 103/65
[2018-06-28] MEDS: VENLAFAXINE HCL 75 MG ER CAPSULE PO SCH (09:05)
[2018-06-28] MEDS: LevETIRAcetam 500 MG TABLET PO SCH ×2 (09:05→17:33)
[2018-06-28] MEDS: BENZTROPINE MESYLATE 0.5 MG TABLET PO SCH ×2 (09:05→17:33)
[2018-06-28] MEDS: HALOPERIDOL 5 MG TABLET PO PRN (13:58)
[2018-06-28] MEDS: LORazepam 2 MG TABLET PO PRN (13:58)
[2018-06-28 19:00] VITALS: BP 110/68
[2018-06-29 02:05] VITALS: BP 111/61
[2018-06-29] MEDS: BENZTROPINE MESYLATE 0.5 MG TABLET PO SCH ×2 (08:39→16:43)
[2018-06-29] MEDS: LevETIRAcetam 500 MG TABLET PO SCH ×2 (08:39→16:43)
[2018-06-29] MEDS: VENLAFAXINE HCL 75 MG ER CAPSULE PO SCH (08:39)
[2018-06-29 09:08] VITALS: BP_SYST 101; BP_SYST 117; BP_DIAS 67; BP_DIAS 70
[2018-06-29] MEDS: LORazepam 2 MG TABLET PO PRN (16:43)
[2018-06-29] MEDS: HALOPERIDOL 5 MG TABLET PO PRN (16:43)
[2018-06-29 18:53] VITALS: BP 126/73
[2018-06-30 07:24] VITALS: BP 118/72
[2018-06-30 08:15] VITALS: BP 113/64
[2018-06-30] MEDS: LevETIRAcetam 500 MG TABLET PO SCH (08:58)
[2018-06-30] MEDS: BENZTROPINE MESYLATE 0.5 MG TABLET PO SCH (08:58)
[2018-06-30] MEDS: VENLAFAXINE HCL 75 MG ER CAPSULE PO SCH (08:58)
[2018-06-30] MEDS ORDERED: BENZ0.5T44 PO (09:32)
== END 2018-06-30 13:30 | disposition home or self-care (01) | DRG 750 ==
LOC: EDSTATUS 21:07 → B3A 21:18
PROVIDERS: ADMIT Psychiatry & Neurology Child & Adolescent Psychiatry; ATTEND Psychiatry & Neurology Child & Adolescent Psychiatry
DX: F25.1 Schizoaffective disorder, depressive type (principal); R45.851 Suicidal ideations; G40.909 Epilepsy, unspecified, not intractable, without status epilepticus; F32.9 Major depressive disorder, single episode, unspecified; F41.9 Anxiety disorder, unspecified; M10.9 Gout, unspecified; Z91.5 Personal history of self-harm; M19.90 Unspecified osteoarthritis, unspecified site; Z88.0 Allergy status to penicillin; Z28.21 Immunization not carried out because of patient refusal; Z79.899 Other long term (current) drug therapy
CPT/HCPCS: 83036; 84439; 84443

== ENCOUNTER 2019-01-08 17:57 | Inpatient (IN) | payer MEDICAID, OTHER ==
[~2019-01-08] VITALS: Ht 162.6 cm; Wt 96.6 kg
[~2019-01-08 17:57] MED LIST changes: -ARIP5TAB8 PO
[2019-01-08] MEDS ORDERED: ARIP2 PO (19:01)
[2019-01-08] MEDS ORDERED: LURA40 PO (19:01)
[2019-01-08 19:38] LABS: BASOPHILS % (AUTO) 0.4 % (0.0-2.0); EOSINOPHILS % (AUTO) 3.4 % (1.0-6.0); HEMATOCRIT 41.1 % (36-46); HEMOGLOBIN 13.4 g/dL (12.0-16.0); LYMPHOCYTES # (AUTO) 1.8 K/uL (1.0-4.8); LYMPHOCYTES % (AUTO) 22.3 % (22.0-44.0); MEAN CORPUSCULAR HEMOGLOBIN 29.8 pg (26.0-34.0); MEAN CORPUSCULAR HGB CONC 32.7 G/dL (31.0-37.0); MEAN CORPUSCULAR VOLUME 91 fL (80-100); MONOCYTES # (AUTO) 0.8 K/uL (0.1-1.0); MONOCYTES % (AUTO) 9.3 % (2.0-9.0); NEUTROPHILS # (AUTO) 5.2 K/uL (1.8-7.7); NEUTROPHILS % (AUTO) 64.6 % (40.0-70.0); PLATELET COUNT (AUTO) 396 K/uL (150-450); RED BLOOD CELL COUNT(AUTO) 4.51 MIL/uL (4.00-5.20); RED CELL DISTRIBUTION WIDTH 12.6 % (11.5-14.5)
[2019-01-08 19:58] LABS: ANION GAP 10 mmol/L (8-16); CALCIUM, TOTAL 9.7 mg/dL (8.8-10.5); CARBON DIOXIDE 25 mmol/L (22-29); CHLORIDE 107 mmol/L (98-107); GLOMERULAR FILTR. RATE CALC 57 mL/min (>60); GLUCOSE,RANDOM 91 mg/dL (70-110); POTASSIUM 3.6 mmol/L (3.5-5.1); SODIUM SERUM 142 mmol/L (136-145); UREA NITROGEN, BLOOD 18 mg/dL (7-18)
[2019-01-08 20:03] LABS: ALANINE AMINOTRANSFERASE 53 U/L (12-78); ALBUMIN 3.4 g/dL (3.4-5.0); ALKALINE PHOSPHATASE 78 U/L (46-116); ASPARTATE AMINOTRANSFERASE 24 U/L (15-37); BILIRUBIN,TOTAL 0.3 mg/dL (0.1-1.0); TOTAL PROTEIN, SERUM 7.3 g/dL (6.4-8.2)
[2019-01-08] MEDS ORDERED: HALOPERIDOL 5 MG TABLET PO PRN (21:00)
[2019-01-08 22:37] VITALS: BP 117/67
[2019-01-08] MEDS ORDERED: DOCUSATE SODIUM 100 MG CAPSULE PO PRN (22:45)
[2019-01-08] MEDS ORDERED: CloNIDine HCL 0.1 MG TABLET PO PRN (22:45)
[2019-01-08] MEDS ORDERED: ACETAMINOPHEN 325 MG TABLET PO PRN (22:45)
[2019-01-08] MEDS ORDERED: ONDANSETRON HCL 4 MG TABLET PO PRN (22:45)
[2019-01-08] MEDS ORDERED: IBUPROFEN 400 MG TABLET PO PRN (22:45)
[2019-01-08] MEDS ORDERED: MAG HYDROX/AL HYDROX/SIMETH ES 30 ML SUSPENSION UDCUP PO PRN (22:45)
[2019-01-08] MEDS ORDERED: ALBUTEROL SULFATE HFA 90 MCG/PUFF 8 GM INHALER IH PRN (22:45)
[2019-01-08] MEDS ORDERED: NICOTINE 14 MG/24 HOUR PATCH TD PRN (22:45)
[2019-01-08] MEDS ORDERED: PETROLATUM,WHITE 28 GM JELLY TP PRN (22:45)
[2019-01-08] MEDS ORDERED: MAGNESIUM HYDROXIDE SUSPENSION 30 ML UDCUP PO PRN (22:45)
[2019-01-08] MEDS ORDERED: GuaiFENesin/D-METHORPHAN [SUGAR-FREE] 200-20MG/10 ML SYRUP UDCUP PO PRN (22:45)
[2019-01-08] MEDS ORDERED: LOPERAMIDE HCL 2 MG CAPSULE PO PRN (22:45)
[2019-01-09 00:32] VITALS: BP 112/64
[2019-01-09 08:02] VITALS: BP 108/56
[2019-01-09] MEDS: LevETIRAcetam 500 MG TABLET PO SCH ×2 (08:32→16:00)
[2019-01-09 09:29] LABS: CHOL/HDL RATIO 4.7 (3.9-5.7); THYROID STIMULATING HORMONE 0.54 uIU/mL (0.36-3.74)
[2019-01-09 09:58] LABS: HEMOGLOBIN A1C 5.5 % (4.5-6.2)
[2019-01-09] MEDS: LORazepam 2 MG TABLET PO PRN (16:00)
[2019-01-09] MEDS: BENZTROPINE MESYLATE 1 MG TABLET PO SCH (16:00)
[2019-01-09] MEDS: LURASIDONE HCL 40 MG TABLET PO SCH (16:00)
[2019-01-09 16:01] VITALS: BP 108/66
[2019-01-10 06:49] VITALS: BP 119/56
[2019-01-10] MEDS: LURASIDONE HCL 80 MG TABLET PO SCH (06:59)
[2019-01-10 08:26] VITALS: BP 106/61
[2019-01-10] MEDS ORDERED: VENLAFAXINE HCL 150 MG ER CAPSULE PO SCH (09:00)
[2019-01-10] MEDS ORDERED: ARIPiprazole 5 MG TABLET PO SCH (09:00)
[2019-01-10] MEDS: ARIPiprazole 10 MG TABLET PO SCH (09:31)
[2019-01-10] MEDS: VENLAFAXINE HCL 75 MG ER CAPSULE PO SCH (09:31)
[2019-01-10] MEDS: BENZTROPINE MESYLATE 1 MG TABLET PO SCH ×2 (09:31→16:27)
[2019-01-10] MEDS: LevETIRAcetam 500 MG TABLET PO SCH (09:32)
[2019-01-10 16:03] VITALS: BP 105/62
[2019-01-10] MEDS: LURASIDONE HCL 40 MG TABLET PO SCH (16:32)
[2019-01-11 06:38] VITALS: BP 110/65
[2019-01-11] MEDS: LURASIDONE HCL 80 MG TABLET PO SCH (06:46)
[2019-01-11 08:26] VITALS: BP 112/67
[2019-01-11] MEDS: ARIPiprazole 10 MG TABLET PO SCH (09:09)
[2019-01-11] MEDS: BENZTROPINE MESYLATE 1 MG TABLET PO SCH ×2 (09:11→16:57)
[2019-01-11] MEDS: LevETIRAcetam 500 MG TABLET PO SCH (09:11)
[2019-01-11] MEDS: VENLAFAXINE HCL 75 MG ER CAPSULE PO SCH (09:13)
[2019-01-11 16:02] VITALS: BP 111/65
[2019-01-11] MEDS: LURASIDONE HCL 40 MG TABLET PO SCH (16:57)
[2019-01-11] MEDS: ZOLPIDEM TARTRATE 10 MG TABLET PO PRN (20:41)
[2019-01-12 05:51] VITALS: BP 115/68
[2019-01-12] MEDS: LURASIDONE HCL 40 MG TABLET PO SCH ×3 (06:47→17:00)
[2019-01-12] MEDS: LURASIDONE HCL 80 MG TABLET PO SCH (07:28)
[2019-01-12 08:31] VITALS: BP 123/60
[2019-01-12] MEDS: BENZTROPINE MESYLATE 1 MG TABLET PO SCH ×2 (08:35→16:12)
[2019-01-12] MEDS: LevETIRAcetam 500 MG TABLET PO SCH (08:35)
[2019-01-12] MEDS: VENLAFAXINE HCL 75 MG ER CAPSULE PO SCH (08:36)
[2019-01-12] MEDS: ARIPiprazole 10 MG TABLET PO SCH (08:36)
[2019-01-12] MEDS ORDERED: ARIP10TA8 PO (16:09)
[2019-01-12 16:22] VITALS: BP 108/69
[2019-01-12] MEDS: LORazepam 2 MG TABLET PO PRN (16:35)
[2019-01-12] MEDS: ZOLPIDEM TARTRATE 10 MG TABLET PO PRN (20:27)
[2019-01-13 02:01] VITALS: BP 117/87
[2019-01-13] MEDS: LURASIDONE HCL 80 MG TABLET PO SCH (06:13)
[2019-01-13 08:24] VITALS: BP 100/57
[2019-01-13] MEDS: ARIPiprazole 10 MG TABLET PO SCH (08:39)
[2019-01-13] MEDS: VENLAFAXINE HCL 75 MG ER CAPSULE PO SCH (08:39)
[2019-01-13] MEDS: LevETIRAcetam 500 MG TABLET PO SCH (08:40)
[2019-01-13] MEDS: BENZTROPINE MESYLATE 1 MG TABLET PO SCH (08:40)
[2019-01-13] MEDS ORDERED: LURA80 PO (11:38)
[2019-01-13] MEDS ORDERED: LEVE500T53 PO (11:39)
== END 2019-01-13 13:15 | disposition home or self-care (01) | DRG 750 ==
LOC: EMS 17:59 → B3A 22:05
PROVIDERS: ADMIT Psychiatry & Neurology Child & Adolescent Psychiatry; ATTEND Psychiatry & Neurology Child & Adolescent Psychiatry
DX: F25.1 Schizoaffective disorder, depressive type (principal); G40.909 Epilepsy, unspecified, not intractable, without status epilepticus; R45.851 Suicidal ideations; E78.5 Hyperlipidemia, unspecified; F31.9 Bipolar disorder, unspecified; F41.9 Anxiety disorder, unspecified; M10.9 Gout, unspecified; Z91.5 Personal history of self-harm; Z88.0 Allergy status to penicillin; Z98.51 Tubal ligation status; Z79.899 Other long term (current) drug therapy
CPT/HCPCS: 83036; 84443; 87081; G0480

== ENCOUNTER 2019-03-27 23:31 | Inpatient (IN) | payer MEDICAID, OTHER ==
[~2019-03-27] VITALS: Ht 162.6 cm; Wt 94.8 kg
[~2019-03-27 23:31] MED LIST changes: +ARIP10TA8 PO; -ARIP882S IM; +LURA40 PO; +LURA80 PO
[2019-03-27 23:46] LABS: BASOPHILS % (AUTO) 0.4 % (0.0-2.0); EOSINOPHILS % (AUTO) 4.8 % (1.0-6.0); HEMATOCRIT 37.4 % (36-46); HEMOGLOBIN 12.7 g/dL (12.0-16.0); LYMPHOCYTES # (AUTO) 2.3 K/uL (1.0-4.8); LYMPHOCYTES % (AUTO) 24.9 % (22.0-44.0); MEAN CORPUSCULAR HEMOGLOBIN 30.4 pg (26.0-34.0); MEAN CORPUSCULAR HGB CONC 33.9 G/dL (31.0-37.0); MEAN CORPUSCULAR VOLUME 90 fL (80-100); MONOCYTES % (AUTO) 10.5 % (2.0-9.0); NEUTROPHILS # (AUTO) 5.6 K/uL (1.8-7.7); NEUTROPHILS % (AUTO) 59.4 % (40.0-70.0); PLATELET COUNT (AUTO) 363 K/uL (150-450); RED BLOOD CELL COUNT(AUTO) 4.17 MIL/uL (4.00-5.20); RED CELL DISTRIBUTION WIDTH 12.9 % (11.5-14.5)
[2019-03-27 23:58] LABS: ANION GAP 11 mmol/L (8-16); CALCIUM, TOTAL 8.8 mg/dL (8.8-10.5); CARBON DIOXIDE 24 mmol/L (22-29); CHLORIDE 105 mmol/L (98-107); CREATININE 0.98 mg/dL (0.60-1.30); GLOMERULAR FILTR. RATE CALC > 60 mL/min (>60); GLUCOSE,RANDOM 104 mg/dL (70-110); POTASSIUM 3.4 mmol/L (3.5-5.1); SODIUM SERUM 140 mmol/L (136-145); UREA NITROGEN, BLOOD 9 mg/dL (7-18)
[2019-03-28 00:09] LABS: ALANINE AMINOTRANSFERASE 80 U/L (12-78); ALBUMIN 3.3 g/dL (3.4-5.0); ALKALINE PHOSPHATASE 82 U/L (46-116); ASPARTATE AMINOTRANSFERASE 26 U/L (15-37); BILIRUBIN,TOTAL 0.2 mg/dL (0.1-1.0); HCG,QUANTITATIVE < 1 mIU/mL (0-6); TOTAL PROTEIN, SERUM 6.9 g/dL (6.4-8.2)
[2019-03-28 00:10] LABS: ACETAMINOPHEN < 2 mcg/mL (10-30)
[2019-03-28 00:21] LABS: SALICYLATE < 2.8 mg/dL (2.8-20.0)
[2019-03-28] MEDS ORDERED: HALOPERIDOL 5 MG TABLET PO PRN (01:45)
[2019-03-28] MEDS ORDERED: ZOLPIDEM TARTRATE 10 MG TABLET PO PRN (01:45)
[2019-03-28] MEDS ORDERED: LORazepam 2 MG TABLET PO PRN (01:45)
[2019-03-28 03:18] VITALS: BP 112/77
[2019-03-28 04:40] VITALS: BP 112/77
[2019-03-28] MEDS ORDERED: INFLUENZA VIRUS VACCINE QVS 2019-20 (3YR+)/PF 60 MCG/0.5 ML SYRINGE IM ONE (05:45)
[2019-03-28] MEDS: LevETIRAcetam 500 MG TABLET PO SCH ×2 (09:06→17:26)
[2019-03-28] MEDS ORDERED: POTASSIUM CHLORIDE 20 MEQ ER TABLET PO ONE (09:30)
[2019-03-28 12:00] VITALS: BP 111/86
[2019-03-28] MEDS ORDERED: IBUPROFEN 400 MG TABLET PO PRN (14:30)
[2019-03-28] MEDS ORDERED: MAG HYDROX/AL HYDROX/SIMETH ES 30 ML SUSPENSION UDCUP PO PRN (14:30)
[2019-03-28] MEDS ORDERED: CloNIDine HCL 0.1 MG TABLET PO PRN (14:30)
[2019-03-28] MEDS ORDERED: ACETAMINOPHEN 325 MG TABLET PO PRN (14:30)
[2019-03-28] MEDS ORDERED: MAGNESIUM HYDROXIDE SUSPENSION 30 ML UDCUP PO PRN (14:30)
[2019-03-28] MEDS ORDERED: DOCUSATE SODIUM 100 MG CAPSULE PO PRN (14:30)
[2019-03-28] MEDS ORDERED: PETROLATUM,WHITE 28 GM JELLY TP PRN (14:30)
[2019-03-28] MEDS ORDERED: GuaiFENesin/D-METHORPHAN [SUGAR-FREE] 200-20MG/10 ML SYRUP UDCUP PO PRN (14:30)
[2019-03-28] MEDS ORDERED: ALBUTEROL SULFATE HFA 90 MCG/PUFF 8 GM INHALER IH PRN (14:30)
[2019-03-28] MEDS ORDERED: LOPERAMIDE HCL 2 MG CAPSULE PO PRN (14:30)
[2019-03-28] MEDS ORDERED: NICOTINE 14 MG/24 HOUR PATCH TD PRN (14:30)
[2019-03-28] MEDS ORDERED: ONDANSETRON HCL 4 MG TABLET PO PRN (14:30)
[2019-03-28 17:00] VITALS: BP 99/68
[2019-03-28] MEDS: BENZTROPINE MESYLATE 1 MG TABLET PO SCH (17:25)
[2019-03-28] MEDS: LURASIDONE HCL 80 MG TABLET PO SCH (17:26)
[2019-03-29] MEDS: LURASIDONE HCL 80 MG TABLET PO SCH ×2 (06:52→16:28)
[2019-03-29 07:36] LABS: CHOL/HDL RATIO 4.6 (3.9-5.7); POTASSIUM 4.3 mmol/L (3.5-5.1)
[2019-03-29 08:54] VITALS: BP 112/73
[2019-03-29] MEDS: BENZTROPINE MESYLATE 1 MG TABLET PO SCH ×2 (09:38→16:27)
[2019-03-29] MEDS: VENLAFAXINE HCL 75 MG ER CAPSULE PO SCH (09:38)
[2019-03-29] MEDS: LevETIRAcetam 500 MG TABLET PO SCH ×2 (09:38→16:27)
[2019-03-29 16:10] VITALS: BP 101/61
[2019-03-30] MEDS: LURASIDONE HCL 80 MG TABLET PO SCH (06:56)
[2019-03-30 08:58] VITALS: BP 98/41
[2019-03-30] MEDS: VENLAFAXINE HCL 75 MG ER CAPSULE PO SCH (09:18)
[2019-03-30] MEDS: BENZTROPINE MESYLATE 1 MG TABLET PO SCH (09:18)
[2019-03-30] MEDS: LevETIRAcetam 500 MG TABLET PO SCH (09:19)
[2019-03-30] MEDS ORDERED: BENZ1TAB10 PO (12:53)
== END 2019-03-30 15:00 | disposition home or self-care (01) | DRG 750 ==
LOC: EMS 23:33 → 3EI 03-28 01:30
PROVIDERS: ADMIT Psychiatry & Neurology Psychiatry; ATTEND Psychiatry & Neurology Psychiatry
PROC: 3E0234Z Introduction of Serum, Toxoid and Vaccine into Muscle, Percutaneous Approach (ICD-10-PCS; principal; 2019-03-30)
DX: F25.1 Schizoaffective disorder, depressive type (principal); G40.909 Epilepsy, unspecified, not intractable, without status epilepticus; R45.851 Suicidal ideations; E87.6 Hypokalemia; F31.9 Bipolar disorder, unspecified; F41.9 Anxiety disorder, unspecified; H40.9 Unspecified glaucoma; M19.90 Unspecified osteoarthritis, unspecified site; Z91.5 Personal history of self-harm; Z88.0 Allergy status to penicillin; Z23 Encounter for immunization
CPT/HCPCS: 84132; 87081; 90686; G0480; G0481

== ENCOUNTER 2019-06-17 19:00 | Inpatient (IN) | payer MEDICAID, OTHER ==
[~2019-06-17] VITALS: Ht 162.6 cm; Wt 97.5 kg
[~2019-06-17 19:00] MED LIST changes: -ARIP10TA8 PO; -BENZ0.5T44 PO; +BENZ1TAB10 PO; -LURA40 PO
[2019-06-17] MEDS ORDERED: LORazepam 2 MG TABLET PO PRN (21:15)
[2019-06-17] MEDS ORDERED: HALOPERIDOL 5 MG TABLET PO PRN (21:15)
[2019-06-17] MEDS ORDERED: ZOLPIDEM TARTRATE 10 MG TABLET PO PRN (21:15)
[2019-06-17 21:19] LABS: AMPHET/METH SCREEN,URINE NEGATIVE (NEGATIVE); BARBITURATE SCREEN, URINE NEGATIVE (NEGATIVE); BENZODIAZEPINES SCREEN,URINE NEGATIVE (NEGATIVE); CANNABINOID SCREEN,URINE NEGATIVE (NEGATIVE); COCAINE SCREEN,URINE NEGATIVE (NEGATIVE); METHADONE SCREEN, URINE NEGATIVE (NEGATIVE); OPIATE SCREEN,URINE NEGATIVE (NEGATIVE)
[2019-06-17 21:23] LABS: PHENCYCLIDINE SCREEN,URINE NEGATIVE (NEGATIVE)
[2019-06-17 22:08] LABS: BASOPHILS % (AUTO) 0.3 % (0.0-2.0); EOSINOPHILS % (AUTO) 4.3 % (1.0-6.0); HEMATOCRIT 39.9 % (36-46); HEMOGLOBIN 13.8 g/dL (12.0-16.0); LYMPHOCYTES # (AUTO) 1.9 K/uL (1.0-4.8); LYMPHOCYTES % (AUTO) 21.3 % (22.0-44.0); MEAN CORPUSCULAR HEMOGLOBIN 31.1 pg (26.0-34.0); MEAN CORPUSCULAR HGB CONC 34.7 G/dL (31.0-37.0); MEAN CORPUSCULAR VOLUME 90 fL (80-100); MONOCYTES # (AUTO) 0.8 K/uL (0.1-1.0); NEUTROPHILS # (AUTO) 5.8 K/uL (1.8-7.7); NEUTROPHILS % (AUTO) 65.1 % (40.0-70.0); PLATELET COUNT (AUTO) 382 K/uL (150-450); RED BLOOD CELL COUNT(AUTO) 4.46 MIL/uL (4.00-5.20); RED CELL DISTRIBUTION WIDTH 12.4 % (11.5-14.5)
[2019-06-17 22:19] LABS: ANION GAP 7 mmol/L (8-16); CALCIUM, TOTAL 9.3 mg/dL (8.8-10.5); CARBON DIOXIDE 28 mmol/L (22-29); CHLORIDE 102 mmol/L (98-107); CREATININE 0.93 mg/dL (0.60-1.30); GLOMERULAR FILTR. RATE CALC > 60 mL/min (>60); GLUCOSE,RANDOM 80 mg/dL (70-110); POTASSIUM 3.8 mmol/L (3.5-5.1); SODIUM SERUM 137 mmol/L (136-145); UREA NITROGEN, BLOOD 12 mg/dL (7-18)
[2019-06-17 22:30] LABS: ALANINE AMINOTRANSFERASE 75 U/L (12-78); ALBUMIN 3.7 g/dL (3.4-5.0); ALKALINE PHOSPHATASE 91 U/L (46-116); ASPARTATE AMINOTRANSFERASE 23 U/L (15-37); BILIRUBIN,TOTAL 0.2 mg/dL (0.1-1.0); HCG,QUANTITATIVE < 1 mIU/mL (0-6); TOTAL PROTEIN, SERUM 7.5 g/dL (6.4-8.2)
[2019-06-18 02:37] VITALS: BP 100/60
[2019-06-18] MEDS ORDERED: -PHARMACY VACCINE NOTE- MISC ONE (05:45)
[2019-06-18] MEDS ORDERED: GuaiFENesin/D-METHORPHAN [SUGAR-FREE] 200-20MG/10 ML SYRUP UDCUP PO PRN (07:45)
[2019-06-18] MEDS ORDERED: MAGNESIUM HYDROXIDE SUSPENSION 30 ML UDCUP PO PRN (07:45)
[2019-06-18] MEDS ORDERED: LOPERAMIDE HCL 2 MG CAPSULE PO PRN (07:45)
[2019-06-18] MEDS ORDERED: IBUPROFEN 400 MG TABLET PO PRN (07:45)
[2019-06-18] MEDS ORDERED: PETROLATUM,WHITE 28 GM JELLY TP PRN (07:45)
[2019-06-18] MEDS ORDERED: NICOTINE 14 MG/24 HOUR PATCH TD PRN (07:45)
[2019-06-18] MEDS ORDERED: ONDANSETRON HCL 4 MG TABLET PO PRN (07:45)
[2019-06-18] MEDS ORDERED: MAG HYDROX/AL HYDROX/SIMETH ES 30 ML SUSPENSION UDCUP PO PRN (07:45)
[2019-06-18] MEDS ORDERED: CloNIDine HCL 0.1 MG TABLET PO PRN (07:45)
[2019-06-18] MEDS ORDERED: ALBUTEROL SULFATE HFA 90 MCG/PUFF 8 GM INHALER IH PRN (07:45)
[2019-06-18] MEDS ORDERED: ACETAMINOPHEN 325 MG TABLET PO PRN (07:45)
[2019-06-18] MEDS ORDERED: DOCUSATE SODIUM 100 MG CAPSULE PO PRN (07:45)
[2019-06-18 08:20] VITALS: BP 101/62
[2019-06-18 08:21] LABS: CHOL/HDL RATIO 4.1 (3.9-5.7)
[2019-06-18] MEDS: LevETIRAcetam 500 MG TABLET PO SCH ×2 (08:41→17:07)
[2019-06-18] MEDS: VENLAFAXINE HCL 75 MG ER CAPSULE PO SCH (10:35)
[2019-06-18 16:52] VITALS: BP 108/68
[2019-06-18] MEDS: BENZTROPINE MESYLATE 1 MG TABLET PO SCH (17:00)
[2019-06-19 06:30] VITALS: BP 112/66
[2019-06-19] MEDS: LURASIDONE HCL 80 MG TABLET PO SCH (06:56)
[2019-06-19] MEDS: VENLAFAXINE HCL 75 MG ER CAPSULE PO SCH (08:05)
[2019-06-19] MEDS: LevETIRAcetam 500 MG TABLET PO SCH ×2 (08:08→16:22)
[2019-06-19] MEDS: BENZTROPINE MESYLATE 1 MG TABLET PO SCH ×2 (08:08→16:21)
[2019-06-19 08:09] VITALS: BP 106/59
[2019-06-19 17:17] VITALS: BP 109/66
[2019-06-20 05:32] VITALS: BP 102/67
[2019-06-20] MEDS: LURASIDONE HCL 80 MG TABLET PO SCH (06:46)
[2019-06-20 08:08] VITALS: BP 103/62
[2019-06-20] MEDS: BENZTROPINE MESYLATE 1 MG TABLET PO SCH ×2 (09:19→15:59)
[2019-06-20] MEDS: LevETIRAcetam 500 MG TABLET PO SCH ×2 (09:19→16:00)
[2019-06-20] MEDS: VENLAFAXINE HCL 75 MG ER CAPSULE PO SCH (09:23)
[2019-06-20 16:04] VITALS: BP 114/65
[2019-06-21 06:10] VITALS: BP 102/62
[2019-06-21] MEDS: LURASIDONE HCL 80 MG TABLET PO SCH (06:59)
[2019-06-21 08:03] VITALS: BP 101/53
[2019-06-21] MEDS: BENZTROPINE MESYLATE 1 MG TABLET PO SCH ×2 (08:26→16:53)
[2019-06-21] MEDS: LevETIRAcetam 500 MG TABLET PO SCH ×2 (08:26→16:53)
[2019-06-21] MEDS: VENLAFAXINE HCL 75 MG ER CAPSULE PO SCH (08:26)
[2019-06-21 16:18] VITALS: BP 110/60
[2019-06-21 16:52] VITALS: BP 110/60
[2019-06-22 01:49] VITALS: BP 115/76
[2019-06-22] MEDS: LURASIDONE HCL 80 MG TABLET PO SCH (06:47)
[2019-06-22 08:13] VITALS: BP 108/61
[2019-06-22] MEDS: BENZTROPINE MESYLATE 1 MG TABLET PO SCH ×2 (08:21→16:51)
[2019-06-22] MEDS: VENLAFAXINE HCL 75 MG ER CAPSULE PO SCH (08:21)
[2019-06-22] MEDS: LevETIRAcetam 500 MG TABLET PO SCH ×2 (08:21→16:51)
[2019-06-22 17:38] VITALS: BP 133/77
[2019-06-23 04:57] VITALS: BP 130/80
[2019-06-23] MEDS: LURASIDONE HCL 80 MG TABLET PO SCH (06:57)
[2019-06-23 08:07] VITALS: BP 119/55
[2019-06-23] MEDS: VENLAFAXINE HCL 75 MG ER CAPSULE PO SCH (08:13)
[2019-06-23] MEDS: LevETIRAcetam 500 MG TABLET PO SCH ×2 (08:13→16:17)
[2019-06-23] MEDS: BENZTROPINE MESYLATE 1 MG TABLET PO SCH ×2 (08:13→16:17)
[2019-06-23] MEDS ORDERED: BENZ1TAB10 PO (16:14)
[2019-06-23] MEDS ORDERED: VENL-67 PO (16:15)
[2019-06-23] MEDS ORDERED: LURA80 PO (16:15)
[2019-06-23] MEDS ORDERED: LEVE500T53 PO (16:16)
[2019-06-23 16:18] VITALS: BP 120/65
== END 2019-06-23 18:30 | disposition home or self-care (01) | DRG 750 ==
LOC: EMS 19:02 → B2S 23:02 → B3A 06-18 09:25
PROVIDERS: ADMIT Psychiatry & Neurology Child & Adolescent Psychiatry; ATTEND Psychiatry & Neurology Child & Adolescent Psychiatry
DX: F25.1 Schizoaffective disorder, depressive type (principal); G40.909 Epilepsy, unspecified, not intractable, without status epilepticus; R45.851 Suicidal ideations; F31.9 Bipolar disorder, unspecified; M10.9 Gout, unspecified; M19.90 Unspecified osteoarthritis, unspecified site
CPT/HCPCS: G0480; Q0162

== ENCOUNTER 2020-12-28 20:43 | Inpatient (IN) | payer MEDICAID, OTHER ==
[~2020-12-28] VITALS: Ht 162.6 cm; Wt 96.2 kg
[~2020-12-28 20:43] MED LIST changes: -LURA80 PO; +LURA80TA2 PO
[2020-12-28 22:53] LABS: BASOPHILS % (AUTO) 0.3 % (0.0-2.0); EOSINOPHILS % (AUTO) 3.2 % (1.0-6.0); HEMATOCRIT 40.4 % (36-46); HEMOGLOBIN 13.7 g/dL (12.0-16.0); LYMPHOCYTES # (AUTO) 2.2 K/uL (1.0-4.8); LYMPHOCYTES % (AUTO) 25.4 % (22.0-44.0); MEAN CORPUSCULAR HEMOGLOBIN 29.9 pg (26.0-34.0); MEAN CORPUSCULAR HGB CONC 33.8 G/dL (31.0-37.0); MEAN CORPUSCULAR VOLUME 89 fL (80-100); MONOCYTES # (AUTO) 0.7 K/uL (0.1-1.0); MONOCYTES % (AUTO) 8.6 % (2.0-9.0); NEUTROPHILS # (AUTO) 5.4 K/uL (1.8-7.7); NEUTROPHILS % (AUTO) 62.5 % (40.0-70.0); PLATELET COUNT (AUTO) 394 K/uL (150-450); RED BLOOD CELL COUNT(AUTO) 4.57 MIL/uL (4.00-5.20); RED CELL DISTRIBUTION WIDTH 12.5 % (11.5-14.5)
[2020-12-28 23:10] LABS: ALANINE AMINOTRANSFERASE 54 U/L (12-78); ALBUMIN 3.9 g/dL (3.4-5.0); ALKALINE PHOSPHATASE 79 U/L (46-116); ANION GAP 11 mmol/L (8-16); ASPARTATE AMINOTRANSFERASE 25 U/L (15-37); BILIRUBIN,TOTAL 0.2 mg/dL (0.1-1.0); CALCIUM, TOTAL 9.2 mg/dL (8.8-10.5); CARBON DIOXIDE 25 mmol/L (22-29); CHLORIDE 108 mmol/L (98-107); CREATININE 0.82 mg/dL (0.60-1.30); GLOMERULAR FILTR. RATE CALC > 60 mL/min (>60); GLUCOSE,RANDOM 112 mg/dL (70-110); POTASSIUM 3.6 mmol/L (3.5-5.1); SODIUM SERUM 144 mmol/L (136-145); TOTAL PROTEIN, SERUM 7.6 g/dL (6.4-8.2); UREA NITROGEN, BLOOD 9 mg/dL (7-18)
[2020-12-28 23:43] LABS: COVID AG,FIA SOURCE NASOPHARYNGEAL
[2020-12-28] MEDS ORDERED: HALOPERIDOL 5 MG TABLET PO PRN (23:45)
[2020-12-28] MEDS ORDERED: ZOLPIDEM TARTRATE 10 MG TABLET PO PRN (23:45)
[2020-12-28 23:50] LABS: HCG,QUANTITATIVE < 1 mIU/mL (0-6)
[2020-12-29 02:57] LABS: CHOL/HDL RATIO 4.5 (3.9-5.7); CHOLESTEROL 179 mg/dL (131-200); HDL CHOLESTEROL 40 mg/dL (40-60); LDL CHOL (CALC.) 109 mg/dL (0-130); TRIGLYCERIDES 149 mg/dL (15-150)
[2020-12-29 03:18] VITALS: BP 117/70
[2020-12-29] MEDS ORDERED: TiZANidine HCL 4 MG TABLET PO PRN (06:00)
[2020-12-29 08:20] VITALS: BP 112/63
[2020-12-29] MEDS ORDERED: CEPHALEXIN MONOHYDRATE 500 MG CAPSULE PO SCH (09:00)
[2020-12-29 16:07] VITALS: BP 109/68
[2020-12-29] MEDS: LevETIRAcetam 500 MG TABLET PO SCH (18:23)
[2020-12-29] MEDS: BENZTROPINE MESYLATE 2 MG TABLET PO SCH (18:39)
[2020-12-29] MEDS: LURASIDONE HCL 40 MG TABLET PO SCH (20:39)
[2020-12-30 05:18] VITALS: BP 103/72
[2020-12-30] MEDS: LORazepam 2 MG TABLET PO PRN (07:12)
[2020-12-30] MEDS: ARIPiprazole 10 MG TABLET PO SCH (08:09)
[2020-12-30] MEDS: VENLAFAXINE HCL 150 MG ER CAPSULE PO SCH (08:09)
[2020-12-30] MEDS: LevETIRAcetam 500 MG TABLET PO SCH ×2 (08:09→16:09)
[2020-12-30] MEDS: LURASIDONE HCL 40 MG TABLET PO SCH ×2 (08:09→21:09)
[2020-12-30 08:10] VITALS: BP 121/66
[2020-12-30] MEDS: BENZTROPINE MESYLATE 2 MG TABLET PO SCH ×2 (11:05→16:09)
[2020-12-30 16:26] VITALS: BP 106/62
[2020-12-31 05:22] VITALS: BP 101/68
[2020-12-31 08:07] VITALS: BP 100/59
[2020-12-31] MEDS: LevETIRAcetam 500 MG TABLET PO SCH ×2 (08:21→15:58)
[2020-12-31] MEDS: BENZTROPINE MESYLATE 2 MG TABLET PO SCH ×2 (08:21→15:58)
[2020-12-31] MEDS: LURASIDONE HCL 40 MG TABLET PO SCH ×2 (08:22→20:32)
[2020-12-31] MEDS: VENLAFAXINE HCL 150 MG ER CAPSULE PO SCH (08:22)
[2020-12-31] MEDS: ARIPiprazole 10 MG TABLET PO SCH (08:22)
[2020-12-31] MEDS: LORazepam 2 MG TABLET PO PRN (15:58)
[2020-12-31 16:07] VITALS: BP 123/69
[2020-12-31] MEDS ORDERED: ACETAMINOPHEN 325 MG TABLET PO PRN (22:00)
[2020-12-31] MEDS ORDERED: CloNIDine HCL 0.1 MG TABLET PO PRN (22:00)
[2020-12-31] MEDS ORDERED: PETROLATUM,WHITE 28 GM JELLY TP PRN (22:00)
[2020-12-31] MEDS ORDERED: MAGNESIUM HYDROXIDE SUSPENSION 30 ML UDCUP PO PRN (22:00)
[2020-12-31] MEDS ORDERED: LOPERAMIDE HCL 2 MG CAPSULE PO PRN (22:00)
[2020-12-31] MEDS ORDERED: BACITRACIN 28 GM OINTMENT TP PRN (22:00)
[2020-12-31] MEDS ORDERED: ALBUTEROL SULFATE HFA 90 MCG/PUFF 8 GM INHALER IH PRN (22:00)
[2020-12-31] MEDS ORDERED: BENZOCAINE/MENTHOL LOZENGE PO PRN (22:00)
[2020-12-31] MEDS ORDERED: IBUPROFEN 600 MG TABLET PO PRN (22:00)
[2020-12-31] MEDS ORDERED: MAG HYDROX/AL HYDROX/SIMETH ES 30 ML SUSPENSION UDCUP PO PRN (22:00)
[2020-12-31] MEDS ORDERED: ONDANSETRON HCL 4 MG TABLET PO PRN (22:00)
[2021-01-01 02:01] VITALS: BP 121/68
[2021-01-01 08:08] VITALS: BP 126/79
[2021-01-01] MEDS: BENZTROPINE MESYLATE 2 MG TABLET PO SCH ×2 (08:40→16:10)
[2021-01-01] MEDS: ARIPiprazole 10 MG TABLET PO SCH (08:40)
[2021-01-01] MEDS: DOCUSATE SODIUM 100 MG CAPSULE PO SCH (08:41)
[2021-01-01] MEDS: LevETIRAcetam 500 MG TABLET PO SCH ×2 (08:42→16:10)
[2021-01-01] MEDS: LURASIDONE HCL 40 MG TABLET PO SCH ×2 (08:42→20:22)
[2021-01-01] MEDS: VENLAFAXINE HCL 150 MG ER CAPSULE PO SCH (08:42)
[2021-01-01] MEDS: OMEPRAZOLE 20 MG CAPSULE PO SCH (08:43)
[2021-01-01 16:02] VITALS: BP 126/72
[2021-01-02 04:58] VITALS: BP 126/68
[2021-01-02] MEDS: LevETIRAcetam 500 MG TABLET PO SCH (08:11)
[2021-01-02] MEDS: DOCUSATE SODIUM 100 MG CAPSULE PO SCH (08:11)
[2021-01-02] MEDS: LURASIDONE HCL 40 MG TABLET PO SCH (08:11)
[2021-01-02] MEDS: ARIPiprazole 10 MG TABLET PO SCH (08:11)
[2021-01-02] MEDS: OMEPRAZOLE 20 MG CAPSULE PO SCH (08:11)
[2021-01-02] MEDS: VENLAFAXINE HCL 150 MG ER CAPSULE PO SCH (08:12)
[2021-01-02] MEDS: BENZTROPINE MESYLATE 2 MG TABLET PO SCH (08:12)
[2021-01-02] MEDS ORDERED: LURA40TA2 PO (11:01)
[2021-01-02] MEDS ORDERED: ARIP10TA38 PO (11:03)
== END 2021-01-02 13:15 | disposition home or self-care (01) | DRG 750 ==
LOC: EMS 20:43 → B3A 23:44
PROVIDERS: ADMIT Psychiatry & Neurology Child & Adolescent Psychiatry; ATTEND Psychiatry & Neurology Child & Adolescent Psychiatry
DX: F25.1 Schizoaffective disorder, depressive type (principal); R45.851 Suicidal ideations; F31.30 Bipolar disorder, current episode depressed, mild or moderate severity, unspecified; G40.909 Epilepsy, unspecified, not intractable, without status epilepticus; E55.9 Vitamin D deficiency, unspecified; E66.9 Obesity, unspecified; F12.90 Cannabis use, unspecified, uncomplicated; G47.00 Insomnia, unspecified; K59.00 Constipation, unspecified; Z91.5 Personal history of self-harm; Z20.822 Contact with and (suspected) exposure to COVID-19; Z88.0 Allergy status to penicillin
CPT/HCPCS: 80053; 80061; 84702; 85025; 99285; G0480

== ENCOUNTER 2021-01-20 23:57 | Inpatient (IN) | payer MEDICAID ==
[~2021-01-20] VITALS: Ht 162.6 cm; Wt 91.0 kg
[~2021-01-20 23:57] MED LIST changes: +ARIP10TA38 PO; +LURA40TA2 PO; -LURA80TA2 PO
[2021-01-21 06:18] VITALS: BP 110/75
[2021-01-21 08:19] VITALS: BP 92/59
[2021-01-21] MEDS ORDERED: LOPERAMIDE HCL 2 MG CAPSULE PO PRN (09:45)
[2021-01-21] MEDS ORDERED: ONDANSETRON HCL 4 MG TABLET PO PRN (09:45)
[2021-01-21] MEDS ORDERED: MAGNESIUM HYDROXIDE SUSPENSION 30 ML UDCUP PO PRN (09:45)
[2021-01-21] MEDS ORDERED: MAG HYDROX/AL HYDROX/SIMETH ES 30 ML SUSPENSION UDCUP PO PRN (09:45)
[2021-01-21] MEDS ORDERED: PETROLATUM,WHITE 28 GM JELLY TP PRN (09:45)
[2021-01-21] MEDS ORDERED: DOCUSATE SODIUM 100 MG CAPSULE PO PRN (09:45)
[2021-01-21] MEDS ORDERED: CloNIDine HCL 0.1 MG TABLET PO PRN (09:45)
[2021-01-21] MEDS ORDERED: ALBUTEROL SULFATE HFA 90 MCG/PUFF 8 GM INHALER IH PRN (09:45)
[2021-01-21] MEDS ORDERED: IBUPROFEN 400 MG TABLET PO PRN (09:45)
[2021-01-21] MEDS ORDERED: GuaiFENesin/D-METHORPHAN [SUGAR-FREE] 200-20MG/10 ML SYRUP UDCUP PO PRN (09:45)
[2021-01-21] MEDS ORDERED: ACETAMINOPHEN 325 MG TABLET PO PRN (09:45)
[2021-01-21] MEDS ORDERED: NICOTINE 14 MG/24 HOUR PATCH TD PRN (09:45)
[2021-01-21] MEDS: HALOPERIDOL 5 MG TABLET PO PRN ×2 (10:25→10:51)
[2021-01-21] MEDS: LORazepam 2 MG TABLET PO PRN ×2 (10:57→11:10)
[2021-01-21] MEDS: VENLAFAXINE HCL 150 MG ER CAPSULE PO SCH (11:05)
[2021-01-21] MEDS: LevETIRAcetam 500 MG TABLET PO SCH ×2 (11:30→16:35)
[2021-01-21 16:23] VITALS: BP 110/64
[2021-01-21] MEDS: BENZTROPINE MESYLATE 1 MG TABLET PO SCH (16:35)
[2021-01-21] MEDS: LURASIDONE HCL 40 MG TABLET PO SCH (16:35)
[2021-01-22 06:27] VITALS: BP 105/62
[2021-01-22] MEDS: BENZTROPINE MESYLATE 1 MG TABLET PO SCH ×2 (07:05→16:27)
[2021-01-22] MEDS: LURASIDONE HCL 40 MG TABLET PO SCH ×2 (07:05→16:26)
[2021-01-22 08:58] VITALS: BP 90/53
[2021-01-22] MEDS: VENLAFAXINE HCL 150 MG ER CAPSULE PO SCH (09:03)
[2021-01-22] MEDS: LevETIRAcetam 500 MG TABLET PO SCH ×2 (09:03→16:27)
[2021-01-22] MEDS: LORazepam 2 MG TABLET PO PRN (16:27)
[2021-01-22] MEDS ORDERED: DiphenhydrAMINE HCL 50 MG/ML VIAL ONE (17:10)
[2021-01-22] MEDS ORDERED: HALOPERIDOL LACTATE 5 MG/ML VIAL ONE ×2 (17:10→17:11)
[2021-01-22] MEDS ORDERED: LORazepam 2 MG/ML VIAL ONE (17:10)
[2021-01-22] MEDS ORDERED: BENZ2TAB10 PO (17:11)
[2021-01-22] MEDS ORDERED: VENL-68 PO (17:11)
[2021-01-22] MEDS ORDERED: LORazepam 2 MG/ML VIAL IM ONE (17:15)
[2021-01-22] MEDS ORDERED: DiphenhydrAMINE HCL 50 MG/ML VIAL IM ONE (17:15)
[2021-01-22] MEDS ORDERED: HALOPERIDOL LACTATE 5 MG/ML VIAL IM ONE (17:15)
[2021-01-23 01:44] VITALS: BP 180/68
[2021-01-23] MEDS: BENZTROPINE MESYLATE 1 MG TABLET PO SCH ×2 (06:55→17:20)
[2021-01-23] MEDS: LURASIDONE HCL 40 MG TABLET PO SCH ×2 (06:55→17:20)
[2021-01-23] MEDS: LevETIRAcetam 500 MG TABLET PO SCH ×2 (08:32→17:20)
[2021-01-23] MEDS: VENLAFAXINE HCL 150 MG ER CAPSULE PO SCH (08:32)
[2021-01-23] MEDS: LORazepam 2 MG TABLET PO PRN ×2 (08:33→16:24)
[2021-01-23 08:50] VITALS: BP 129/78
[2021-01-23 16:24] VITALS: BP 105/62
[2021-01-23] MEDS: HALOPERIDOL 5 MG TABLET PO PRN (16:25)
[2021-01-24 02:31] VITALS: BP 102/68
[2021-01-24] MEDS: LURASIDONE HCL 40 MG TABLET PO SCH ×2 (06:57→16:20)
[2021-01-24] MEDS: BENZTROPINE MESYLATE 1 MG TABLET PO SCH ×2 (06:57→16:20)
[2021-01-24] MEDS: LevETIRAcetam 500 MG TABLET PO SCH ×2 (08:20→16:19)
[2021-01-24] MEDS: LORazepam 2 MG TABLET PO PRN (08:20)
[2021-01-24] MEDS: VENLAFAXINE HCL 150 MG ER CAPSULE PO SCH (08:20)
[2021-01-24 08:30] VITALS: BP 130/84
[2021-01-24 16:20] VITALS: BP 112/71
[2021-01-25] MEDS: LURASIDONE HCL 40 MG TABLET PO SCH ×2 (06:37→17:00)
[2021-01-25] MEDS: BENZTROPINE MESYLATE 1 MG TABLET PO SCH ×2 (06:37→17:00)
[2021-01-25 06:56] VITALS: BP 108/68
[2021-01-25 08:41] VITALS: BP 118/79
[2021-01-25] MEDS: LevETIRAcetam 500 MG TABLET PO SCH ×2 (09:06→17:00)
[2021-01-25] MEDS: VENLAFAXINE HCL 150 MG ER CAPSULE PO SCH (09:06)
[2021-01-25 16:18] VITALS: BP 114/69
[2021-01-25] MEDS: HALOPERIDOL 5 MG TABLET PO PRN (17:10)
[2021-01-26 00:47] VITALS: BP 100/60
[2021-01-26] MEDS: LURASIDONE HCL 40 MG TABLET PO SCH ×2 (06:27→16:43)
[2021-01-26] MEDS: BENZTROPINE MESYLATE 1 MG TABLET PO SCH ×2 (06:28→16:43)
[2021-01-26] MEDS: VENLAFAXINE HCL 150 MG ER CAPSULE PO SCH (08:14)
[2021-01-26] MEDS: LevETIRAcetam 500 MG TABLET PO SCH ×2 (08:15→16:43)
[2021-01-26 08:45] VITALS: BP 104/64
[2021-01-26 13:00] VITALS: BP 112/74
[2021-01-26] MEDS: HALOPERIDOL 5 MG TABLET PO PRN ×2 (13:04→21:47)
[2021-01-26] MEDS: LORazepam 2 MG TABLET PO PRN (13:04)
[2021-01-26 16:36] VITALS: BP 113/82
[2021-01-26] MEDS: ZOLPIDEM TARTRATE 10 MG TABLET PO PRN (21:17)
[2021-01-27 01:45] VITALS: BP 102/62
[2021-01-27] MEDS: LURASIDONE HCL 40 MG TABLET PO SCH ×2 (06:39→16:19)
[2021-01-27] MEDS: BENZTROPINE MESYLATE 1 MG TABLET PO SCH ×2 (06:39→16:19)
[2021-01-27 08:25] VITALS: BP 84/44
[2021-01-27 09:10] VITALS: BP 101/65
[2021-01-27] MEDS: LORazepam 2 MG TABLET PO PRN (09:39)
[2021-01-27] MEDS: LevETIRAcetam 500 MG TABLET PO SCH ×2 (09:39→16:19)
[2021-01-27] MEDS: VENLAFAXINE HCL 150 MG ER CAPSULE PO SCH (09:40)
[2021-01-27 16:11] VITALS: BP 101/66
[2021-01-27] MEDS: ZOLPIDEM TARTRATE 10 MG TABLET PO PRN (20:05)
[2021-01-28 00:34] VITALS: BP 102/63
[2021-01-28] MEDS: BENZTROPINE MESYLATE 1 MG TABLET PO SCH ×2 (06:29→16:17)
[2021-01-28] MEDS: LURASIDONE HCL 40 MG TABLET PO SCH ×2 (06:29→16:16)
[2021-01-28 08:21] VITALS: BP 102/54
[2021-01-28] MEDS: LevETIRAcetam 500 MG TABLET PO SCH ×2 (08:58→16:16)
[2021-01-28] MEDS: VENLAFAXINE HCL 150 MG ER CAPSULE PO SCH (08:58)
[2021-01-28] MEDS: LORazepam 2 MG TABLET PO PRN (08:58)
[2021-01-28 16:26] VITALS: BP 120/83
[2021-01-28] MEDS: ZOLPIDEM TARTRATE 10 MG TABLET PO PRN (20:20)
[2021-01-29] MEDS: LORazepam 2 MG TABLET PO PRN (03:29)
[2021-01-29 03:37] VITALS: BP 119/86
[2021-01-29 05:30] VITALS: BP 114/82
[2021-01-29] MEDS: BENZTROPINE MESYLATE 1 MG TABLET PO SCH ×2 (06:56→17:01)
[2021-01-29] MEDS: LURASIDONE HCL 40 MG TABLET PO SCH ×2 (06:57→17:01)
[2021-01-29] MEDS: LevETIRAcetam 500 MG TABLET PO SCH ×2 (08:04→17:01)
[2021-01-29] MEDS: VENLAFAXINE HCL 150 MG ER CAPSULE PO SCH (08:04)
[2021-01-29 08:29] VITALS: BP 129/81
[2021-01-29 16:20] VITALS: BP 103/66
[2021-01-29] MEDS: HALOPERIDOL 5 MG TABLET PO PRN (18:19)
[2021-01-30 01:02] VITALS: BP 100/61
[2021-01-30] MEDS: BENZTROPINE MESYLATE 1 MG TABLET PO SCH (06:51)
[2021-01-30] MEDS: LURASIDONE HCL 40 MG TABLET PO SCH (06:51)
[2021-01-30 08:20] VITALS: BP 100/60
[2021-01-30] MEDS: LevETIRAcetam 500 MG TABLET PO SCH (08:38)
[2021-01-30] MEDS: VENLAFAXINE HCL 150 MG ER CAPSULE PO SCH (08:38)
== END 2021-01-30 13:20 | disposition home or self-care (01) | DRG 750 ==
LOC: B3A 01-21 04:28
PROVIDERS: ATTEND Psychiatry & Neurology Child & Adolescent Psychiatry
DX: F25.1 Schizoaffective disorder, depressive type (principal); G40.909 Epilepsy, unspecified, not intractable, without status epilepticus; R45.851 Suicidal ideations; E66.9 Obesity, unspecified; F12.90 Cannabis use, unspecified, uncomplicated; M10.9 Gout, unspecified; M19.90 Unspecified osteoarthritis, unspecified site
CPT/HCPCS: 87081; J1200; J1630; J2060

== ENCOUNTER 2021-03-12 16:37 | Inpatient (IN) | payer MEDICAID, OTHER ==
[~2021-03-12] VITALS: Ht 162.6 cm; Wt 93.4 kg
[~2021-03-12 16:37] MED LIST changes: -ARIP10TA38 PO; -BENZ1TAB10 PO; +BENZ2TAB10 PO; +LEVE500T20 PO; -LEVE500T53 PO; -VENL-67 PO; +VENL-68 PO
[2021-03-12 17:23] LABS: BASOPHILS % (AUTO) 0.4 % (0.0-2.0); EOSINOPHILS % (AUTO) 4.3 % (1.0-6.0); HEMATOCRIT 38.1 % (36-46); HEMOGLOBIN 13.1 g/dL (12.0-16.0); LYMPHOCYTES # (AUTO) 2.1 K/uL (1.0-4.8); LYMPHOCYTES % (AUTO) 20.8 % (22.0-44.0); MEAN CORPUSCULAR HEMOGLOBIN 30.4 pg (26.0-34.0); MEAN CORPUSCULAR HGB CONC 34.4 G/dL (31.0-37.0); MEAN CORPUSCULAR VOLUME 89 fL (80-100); MONOCYTES # (AUTO) 0.9 K/uL (0.1-1.0); MONOCYTES % (AUTO) 8.7 % (2.0-9.0); NEUTROPHILS # (AUTO) 6.8 K/uL (1.8-7.7); NEUTROPHILS % (AUTO) 65.8 % (40.0-70.0); PLATELET COUNT (AUTO) 483 K/uL (150-450); RED CELL DISTRIBUTION WIDTH 12.6 % (11.5-14.5)
[2021-03-12 17:36] LABS: ANION GAP 10 mmol/L (8-16); CALCIUM, TOTAL 8.8 mg/dL (8.8-10.5); CARBON DIOXIDE 26 mmol/L (22-29); CHLORIDE 107 mmol/L (98-107); CREATININE 0.99 mg/dL (0.60-1.30); GLOMERULAR FILTR. RATE CALC > 60 mL/min (>60); GLUCOSE,RANDOM 112 mg/dL (70-110); POTASSIUM 3.7 mmol/L (3.5-5.1); SODIUM SERUM 143 mmol/L (136-145); UREA NITROGEN, BLOOD 10 mg/dL (7-18)
[2021-03-12 17:49] LABS: ALANINE AMINOTRANSFERASE 61 U/L (12-78); ALBUMIN 3.3 g/dL (3.4-5.0); ALKALINE PHOSPHATASE 100 U/L (46-116); ASPARTATE AMINOTRANSFERASE 22 U/L (15-37); BILIRUBIN,TOTAL 0.1 mg/dL (0.1-1.0); HCG,QUANTITATIVE < 1 mIU/mL (0-6); TOTAL PROTEIN, SERUM 7.4 g/dL (6.4-8.2)
[2021-03-12 18:47] LABS: COVID AG,FIA SOURCE NASOPHARYNGEAL
[2021-03-12] MEDS ORDERED: ZOLPIDEM TARTRATE 10 MG TABLET PO PRN (19:45)
[2021-03-12 20:36] LABS: APPEARANCE,URINE CLEAR (CLEAR); BILIRUBIN,URINE NEGATIVE (NEGATIVE); GLUCOSE, URINE (UA) NEGATIVE (NEGATIVE); KETONES,URINE NEGATIVE (NEGATIVE); LEUKOCYTE ESTERASE ,URINE NEGATIVE (NEGATIVE); NITRATE,URINE NEGATIVE (NEGATIVE); OCCULT BLOOD,URINE NEGATIVE (NEGATIVE); PROTEIN,URINE NEGATIVE (NEGATIVE); UROBILINOGEN,URINE 0.2 mg/dL (<=1.0)
[2021-03-12 20:45] LABS: AMPHET/METH SCREEN,URINE NEGATIVE (NEGATIVE); BARBITURATE SCREEN, URINE NEGATIVE (NEGATIVE); BENZODIAZEPINES SCREEN,URINE NEGATIVE (NEGATIVE); CANNABINOID SCREEN,URINE NEGATIVE (NEGATIVE); COCAINE SCREEN,URINE NEGATIVE (NEGATIVE); METHADONE SCREEN, URINE NEGATIVE (NEGATIVE); OPIATE SCREEN,URINE NEGATIVE (NEGATIVE)
[2021-03-12 20:46] LABS: PHENCYCLIDINE SCREEN,URINE NEGATIVE (NEGATIVE)
[2021-03-13 02:21] LABS: CHOL/HDL RATIO 5.5 (3.9-5.7); CHOLESTEROL 198 mg/dL (131-200); HDL CHOLESTEROL 36 mg/dL (40-60); LDL CHOL (CALC.) 119 mg/dL (0-130); TRIGLYCERIDES 213 mg/dL (15-150)
[2021-03-13] MEDS: LORazepam 2 MG TABLET PO PRN (08:45)
[2021-03-13] MEDS: HALOPERIDOL 5 MG TABLET PO PRN (08:45)
[2021-03-13 08:58] VITALS: BP 116/76
[2021-03-13] MEDS: LevETIRAcetam 500 MG TABLET PO SCH ×3 (09:00→16:46)
[2021-03-13] MEDS: VENLAFAXINE HCL 150 MG ER CAPSULE PO SCH (10:44)
[2021-03-13] MEDS: LURASIDONE HCL 40 MG TABLET PO SCH ×2 (10:44→17:36)
[2021-03-13] MEDS: BENZTROPINE MESYLATE 2 MG TABLET PO SCH ×2 (10:45→16:46)
[2021-03-13] MEDS ORDERED: GuaiFENesin/D-METHORPHAN [SUGAR-FREE] 200-20MG/10 ML SYRUP UDCUP PO PRN (11:00)
[2021-03-13] MEDS ORDERED: MAG HYDROX/AL HYDROX/SIMETH ES 30 ML SUSPENSION UDCUP PO PRN (11:00)
[2021-03-13] MEDS ORDERED: DOCUSATE SODIUM 100 MG CAPSULE PO PRN (11:00)
[2021-03-13] MEDS ORDERED: NICOTINE 14 MG/24 HOUR PATCH TD PRN (11:00)
[2021-03-13] MEDS ORDERED: LOPERAMIDE HCL 2 MG CAPSULE PO PRN (11:00)
[2021-03-13] MEDS ORDERED: MAGNESIUM HYDROXIDE SUSPENSION 30 ML UDCUP PO PRN (11:00)
[2021-03-13] MEDS ORDERED: CloNIDine HCL 0.1 MG TABLET PO PRN (11:00)
[2021-03-13] MEDS ORDERED: ALBUTEROL SULFATE HFA 90 MCG/PUFF 8 GM INHALER IH PRN (11:00)
[2021-03-13] MEDS ORDERED: PETROLATUM,WHITE 28 GM JELLY TP PRN (11:00)
[2021-03-13] MEDS ORDERED: IBUPROFEN 400 MG TABLET PO PRN (11:00)
[2021-03-13] MEDS ORDERED: ONDANSETRON HCL 4 MG TABLET PO PRN (11:00)
[2021-03-13] MEDS ORDERED: ACETAMINOPHEN 325 MG TABLET PO PRN (11:00)
[2021-03-13] MEDS: BACITRACIN 28 GM OINTMENT TP SCH (15:07)
[2021-03-13] MEDS ORDERED: LevETIRAcetam 500 MG TABLET PO SCH (17:00)
[2021-03-14 08:00] VITALS: BP 101/56
[2021-03-14] MEDS: VENLAFAXINE HCL 150 MG ER CAPSULE PO SCH (08:58)
[2021-03-14] MEDS: LORazepam 2 MG TABLET PO PRN (08:58)
[2021-03-14] MEDS: LURASIDONE HCL 40 MG TABLET PO SCH ×2 (08:58→18:42)
[2021-03-14] MEDS: BENZTROPINE MESYLATE 2 MG TABLET PO SCH ×2 (08:58→17:41)
[2021-03-14] MEDS: LevETIRAcetam 500 MG TABLET PO SCH ×2 (08:59→17:40)
[2021-03-14] MEDS: BACITRACIN 28 GM OINTMENT TP SCH (08:59)
[2021-03-14] MEDS: HALOPERIDOL 5 MG TABLET PO PRN (17:42)
[2021-03-15] MEDS: LURASIDONE HCL 40 MG TABLET PO SCH ×2 (06:58→18:44)
[2021-03-15] MEDS: BACITRACIN 28 GM OINTMENT TP SCH (08:09)
[2021-03-15] MEDS: LevETIRAcetam 500 MG TABLET PO SCH ×2 (08:09→15:59)
[2021-03-15] MEDS: BENZTROPINE MESYLATE 2 MG TABLET PO SCH ×2 (08:09→15:59)
[2021-03-15] MEDS: VENLAFAXINE HCL 150 MG ER CAPSULE PO SCH (08:09)
[2021-03-15 08:15] VITALS: BP 100/54
[2021-03-15] MEDS: HALOPERIDOL 5 MG TABLET PO PRN (15:59)
[2021-03-15 16:50] VITALS: BP 96/62
[2021-03-16] MEDS: LURASIDONE HCL 40 MG TABLET PO SCH (06:39)
[2021-03-16] MEDS: BENZTROPINE MESYLATE 2 MG TABLET PO SCH (08:17)
[2021-03-16] MEDS: VENLAFAXINE HCL 150 MG ER CAPSULE PO SCH (08:17)
[2021-03-16] MEDS: LevETIRAcetam 500 MG TABLET PO SCH (08:17)
[2021-03-16] MEDS: LORazepam 2 MG TABLET PO PRN ×2 (08:19→14:00)
[2021-03-16] MEDS: BACITRACIN 28 GM OINTMENT TP SCH (09:00)
== END 2021-03-16 17:51 | disposition home or self-care (01) | DRG 750 ==
LOC: EMS 16:45 → 3EC 03-13 04:26
PROVIDERS: ADMIT Psychiatry & Neurology Child & Adolescent Psychiatry; ATTEND Psychiatry & Neurology Child & Adolescent Psychiatry
DX: F25.9 Schizoaffective disorder, unspecified (principal); G40.909 Epilepsy, unspecified, not intractable, without status epilepticus; R45.851 Suicidal ideations; E66.9 Obesity, unspecified; E78.5 Hyperlipidemia, unspecified; F10.10 Alcohol abuse, uncomplicated; F31.9 Bipolar disorder, unspecified; Z88.0 Allergy status to penicillin; F41.9 Anxiety disorder, unspecified; Z20.822 Contact with and (suspected) exposure to COVID-19
CPT/HCPCS: 80053; 80061; 81003; 84702; 85025; 99285; G0480

== ENCOUNTER 2021-04-05 14:26 | Emergency (ER) | payer MEDICAID, OTHER ==
[~2021-04-05] VITALS: Ht 162.6 cm; Wt 90.5 kg
[2021-04-05 15:52] LABS: BASOPHILS % (AUTO) 0.3 % (0.0-2.0); EOSINOPHILS % (AUTO) 2.3 % (1.0-6.0); HEMATOCRIT 38.9 % (36-46); HEMOGLOBIN 13.1 g/dL (12.0-16.0); LYMPHOCYTES # (AUTO) 1.6 K/uL (1.0-4.8); MEAN CORPUSCULAR HEMOGLOBIN 30.3 pg (26.0-34.0); MEAN CORPUSCULAR HGB CONC 33.8 G/dL (31.0-37.0); MEAN CORPUSCULAR VOLUME 90 fL (80-100); MONOCYTES # (AUTO) 0.8 K/uL (0.1-1.0); MONOCYTES % (AUTO) 7.7 % (2.0-9.0); NEUTROPHILS # (AUTO) 7.4 K/uL (1.8-7.7); NEUTROPHILS % (AUTO) 73.7 % (40.0-70.0); PLATELET COUNT (AUTO) 449 K/uL (150-450); RED BLOOD CELL COUNT(AUTO) 4.34 MIL/uL (4.00-5.20); RED CELL DISTRIBUTION WIDTH 12.6 % (11.5-14.5)
[2021-04-05 16:07] LABS: ANION GAP 7 mmol/L (8-16); CALCIUM, TOTAL 8.8 mg/dL (8.8-10.5); CARBON DIOXIDE 27 mmol/L (22-29); CHLORIDE 107 mmol/L (98-107); CREATININE 0.91 mg/dL (0.60-1.30); GLOMERULAR FILTR. RATE CALC > 60 mL/min (>60); GLUCOSE,RANDOM 93 mg/dL (70-110); POTASSIUM 3.6 mmol/L (3.5-5.1); SODIUM SERUM 141 mmol/L (136-145); UREA NITROGEN, BLOOD 8 mg/dL (7-18)
[2021-04-05 16:12] LABS: ALANINE AMINOTRANSFERASE 86 U/L (12-78); ALBUMIN 3.5 g/dL (3.4-5.0); ALKALINE PHOSPHATASE 99 U/L (46-116); ASPARTATE AMINOTRANSFERASE 34 U/L (15-37); BILIRUBIN,TOTAL 0.2 mg/dL (0.1-1.0); TOTAL PROTEIN, SERUM 7.7 g/dL (6.4-8.2)
[2021-04-05 16:19] LABS: AMPHET/METH SCREEN,URINE NEGATIVE (NEGATIVE); BARBITURATE SCREEN, URINE NEGATIVE (NEGATIVE); BENZODIAZEPINES SCREEN,URINE NEGATIVE (NEGATIVE); CANNABINOID SCREEN,URINE NEGATIVE (NEGATIVE); COCAINE SCREEN,URINE NEGATIVE (NEGATIVE); METHADONE SCREEN, URINE NEGATIVE (NEGATIVE); OPIATE SCREEN,URINE NEGATIVE (NEGATIVE); PHENCYCLIDINE SCREEN,URINE NEGATIVE (NEGATIVE)
[2021-04-05] MEDS ORDERED: LevETIRAcetam 500 MG TABLET PO ONE (16:45)
[2021-04-05] MEDS ORDERED: LURASIDONE HCL 40 MG TABLET PO ONE (16:45)
[2021-04-05] MEDS ORDERED: BENZTROPINE MESYLATE 2 MG TABLET PO ONE (16:45)
[2021-04-05 17:41] VITALS: BP 116/76
== END 2021-04-05 18:26 | disposition home or self-care (01) ==
LOC: EMS 14:32
DX: F25.9 Schizoaffective disorder, unspecified (principal); R45.851 Suicidal ideations; Z88.0 Allergy status to penicillin; Z79.899 Other long term (current) drug therapy
CPT/HCPCS: 36415; 80053; 80307; 84703; 85025; 99285; G0480

== ENCOUNTER 2021-06-16 20:15 | Emergency (ER) | payer OTHER ==
[~2021-06-16] VITALS: Ht 162.6 cm; Wt 90.5 kg
[2021-06-16] MEDS ORDERED: VENLAFAXINE HCL 150 MG ER CAPSULE PO ONE (21:00)
[2021-06-16] MEDS ORDERED: BENZTROPINE MESYLATE 2 MG TABLET PO ONE (21:00)
[2021-06-16] MEDS ORDERED: LevETIRAcetam 500 MG TABLET PO ONE (21:00)
[2021-06-16 21:45] VITALS: BP 132/66
== END 2021-06-16 21:52 | disposition home or self-care (01) ==
LOC: EMS 20:19
DX: F20.9 Schizophrenia, unspecified (principal); Z76.0 Encounter for issue of repeat prescription
CPT/HCPCS: 99284; Z7502; Z7610

== ENCOUNTER 2021-06-24 10:42 | Inpatient (IN) | payer MEDICAID, OTHER ==
[~2021-06-24] VITALS: Ht 162.6 cm; Wt 94.2 kg
[2021-06-24] MEDS ORDERED: BACITRACIN 0.9 GM PACKET OINTMENT TP ONE (11:15)
[2021-06-24] MEDS ORDERED: PERTUSS(ACELL),DIPH,TET VAC/PF 0.5 ML SYRINGE IM. ONE (11:15)
[2021-06-24 11:30] LABS: BASOPHILS % (AUTO) 0.4 % (0.0-2.0); EOSINOPHILS % (AUTO) 2.9 % (1.0-6.0); HEMATOCRIT 40.5 % (36-46); LYMPHOCYTES # (AUTO) 1.2 K/uL (1.0-4.8); LYMPHOCYTES % (AUTO) 19.6 % (22.0-44.0); MEAN CORPUSCULAR HEMOGLOBIN 29.9 pg (26.0-34.0); MEAN CORPUSCULAR HGB CONC 34.6 G/dL (31.0-37.0); MEAN CORPUSCULAR VOLUME 86 fL (80-100); MONOCYTES # (AUTO) 0.6 K/uL (0.1-1.0); MONOCYTES % (AUTO) 8.9 % (2.0-9.0); NEUTROPHILS # (AUTO) 4.3 K/uL (1.8-7.7); NEUTROPHILS % (AUTO) 68.2 % (40.0-70.0); PLATELET COUNT (AUTO) 451 K/uL (150-450); RED CELL DISTRIBUTION WIDTH 12.3 % (11.5-14.5)
[2021-06-24 11:31] LABS: ANION GAP 7 mmol/L (8-16); CALCIUM, TOTAL 9.1 mg/dL (8.8-10.5); CARBON DIOXIDE 27 mmol/L (22-29); CHLORIDE 107 mmol/L (98-107); CREATININE 0.98 mg/dL (0.60-1.30); GLOMERULAR FILTR. RATE CALC > 60 mL/min (>60); GLUCOSE,RANDOM 114 mg/dL (70-110); POTASSIUM 3.8 mmol/L (3.5-5.1); SODIUM SERUM 141 mmol/L (136-145); UREA NITROGEN, BLOOD 12 mg/dL (7-18)
[2021-06-24 11:42] LABS: ALANINE AMINOTRANSFERASE 45 U/L (12-78); ALBUMIN 3.6 g/dL (3.4-5.0); ALKALINE PHOSPHATASE 70 U/L (46-116); ASPARTATE AMINOTRANSFERASE 14 U/L (15-37); BILIRUBIN,TOTAL 0.3 mg/dL (0.1-1.0); HCG,QUANTITATIVE < 1 mIU/mL (0-6); TOTAL PROTEIN, SERUM 7.7 g/dL (6.4-8.2)
[2021-06-24] MEDS ORDERED: ZOLPIDEM TARTRATE 10 MG TABLET PO PRN (12:00)
[2021-06-24 12:04] LABS: COVID AG,FIA SOURCE NASOPHARYNGEAL
[2021-06-24] MEDS ORDERED: LEVE500T20 PO (15:39)
[2021-06-24] MEDS ORDERED: LevETIRAcetam 500 MG TABLET PO ONE (16:00)
[2021-06-25 02:49] VITALS: BP 106/76
[2021-06-25] MEDS: LevETIRAcetam 500 MG TABLET PO SCH ×2 (08:22→16:25)
[2021-06-25 08:35] VITALS: BP 122/83
[2021-06-25 09:37] LABS: FREE T4 (FREE THYROXINE) 0.87 ng/dL (0.76-1.46); THYROID STIMULATING HORMONE 0.62 uIU/mL (0.36-3.74)
[2021-06-25 10:14] LABS: CHOL/HDL RATIO 4.3 (3.9-5.7)
[2021-06-25] MEDS ORDERED: PETROLATUM,WHITE 28 GM JELLY TP PRN (12:15)
[2021-06-25] MEDS ORDERED: ACETAMINOPHEN 325 MG TABLET PO PRN (12:15)
[2021-06-25] MEDS ORDERED: CloNIDine HCL 0.1 MG TABLET PO PRN (12:15)
[2021-06-25] MEDS ORDERED: LOPERAMIDE HCL 2 MG CAPSULE PO PRN (12:15)
[2021-06-25] MEDS ORDERED: MAGNESIUM HYDROXIDE SUSPENSION 30 ML UDCUP PO PRN (12:15)
[2021-06-25] MEDS ORDERED: ALBUTEROL SULFATE HFA 90 MCG/PUFF 8 GM INHALER IH PRN (12:15)
[2021-06-25] MEDS ORDERED: ONDANSETRON HCL 4 MG TABLET PO PRN (12:15)
[2021-06-25] MEDS ORDERED: IBUPROFEN 400 MG TABLET PO PRN (12:15)
[2021-06-25] MEDS ORDERED: DOCUSATE SODIUM 100 MG CAPSULE PO PRN (12:15)
[2021-06-25] MEDS ORDERED: NICOTINE 14 MG/24 HOUR PATCH TD PRN (12:15)
[2021-06-25] MEDS ORDERED: GuaiFENesin/D-METHORPHAN [SUGAR-FREE] 200-20MG/10 ML SYRUP UDCUP PO PRN (12:15)
[2021-06-25] MEDS ORDERED: MAG HYDROX/AL HYDROX/SIMETH ES 30 ML SUSPENSION UDCUP PO PRN (12:15)
[2021-06-25] MEDS: BENZTROPINE MESYLATE 2 MG TABLET PO SCH (16:25)
[2021-06-25] MEDS: HALOPERIDOL 5 MG TABLET PO PRN (16:40)
[2021-06-25] MEDS: LORazepam 2 MG TABLET PO PRN (16:51)
[2021-06-25] MEDS: LURASIDONE HCL 40 MG TABLET PO SCH (19:57)
[2021-06-26] MEDS: LURASIDONE HCL 40 MG TABLET PO SCH ×2 (06:37→16:07)
[2021-06-26 08:00] VITALS: BP 112/59
[2021-06-26] MEDS: BENZTROPINE MESYLATE 2 MG TABLET PO SCH ×2 (08:18→16:10)
[2021-06-26] MEDS: HALOPERIDOL 5 MG TABLET PO PRN (08:18)
[2021-06-26] MEDS: VENLAFAXINE HCL 150 MG ER CAPSULE PO SCH (08:18)
[2021-06-26] MEDS: LORazepam 2 MG TABLET PO PRN (08:18)
[2021-06-26] MEDS: LevETIRAcetam 500 MG TABLET PO SCH ×2 (08:18→16:07)
[2021-06-26 16:33] VITALS: BP 129/82
[2021-06-27] MEDS: LURASIDONE HCL 40 MG TABLET PO SCH (06:55)
[2021-06-27 08:00] VITALS: BP 113/76
[2021-06-27] MEDS: LORazepam 2 MG TABLET PO PRN (08:53)
[2021-06-27] MEDS: BENZTROPINE MESYLATE 2 MG TABLET PO SCH (08:53)
[2021-06-27] MEDS: LevETIRAcetam 500 MG TABLET PO SCH (08:53)
[2021-06-27] MEDS: VENLAFAXINE HCL 150 MG ER CAPSULE PO SCH (08:53)
[2021-06-27] MEDS: HALOPERIDOL 5 MG TABLET PO PRN (08:53)
[2021-06-27] MEDS ORDERED: VENL-68 PO (12:51)
[2021-06-27] MEDS ORDERED: BENZ2TAB10 PO (12:51)
[2021-06-27] MEDS ORDERED: LURA40TA2 PO (12:51)
== END 2021-06-27 15:50 | disposition home or self-care (01) | DRG 750 ==
LOC: EMS 10:44 → 3EC 23:19
PROVIDERS: ADMIT Psychiatry & Neurology Child & Adolescent Psychiatry; ATTEND Psychiatry & Neurology Child & Adolescent Psychiatry
PROC: 3E0234Z Introduction of Serum, Toxoid and Vaccine into Muscle, Percutaneous Approach (ICD-10-PCS; principal; 2021-06-24)
DX: F25.1 Schizoaffective disorder, depressive type (principal); R45.851 Suicidal ideations; G40.909 Epilepsy, unspecified, not intractable, without status epilepticus; E66.9 Obesity, unspecified; X78.0XXA Intentional self-harm by sharp glass, initial encounter; M10.9 Gout, unspecified; Z20.822 Contact with and (suspected) exposure to COVID-19; M19.90 Unspecified osteoarthritis, unspecified site; S50.811A Abrasion of right forearm, initial encounter; S61.511A Laceration without foreign body of right wrist, initial encounter; Z68.35 Body mass index [BMI] 35.0-35.9, adult; Z23 Encounter for immunization; Z88.0 Allergy status to penicillin; Z79.899 Other long term (current) drug therapy; Y93.89 Activity, other specified; Y92.89 Other specified places as the place of occurrence of the external cause; Y99.8 Other external cause status
CPT/HCPCS: 80053; 80061; 84439; 84443; 84702; 85025; 90715; 99285; G0480

== ENCOUNTER 2021-09-09 14:26 | Inpatient (IN) | payer MEDICAID, OTHER ==
[~2021-09-09] VITALS: Ht 162.6 cm; Wt 93.1 kg
[~2021-09-09 14:26] MED LIST changes: -BENZ2TAB10 PO; +BENZ2TAB76 PO
[2021-09-09] MEDS ORDERED: ZOLPIDEM TARTRATE 10 MG TABLET PO PRN (16:00)
[2021-09-09 16:05] LABS: BASOPHILS % (AUTO) 0.3 % (0.0-2.0); HEMATOCRIT 39.7 % (36-46); HEMOGLOBIN 13.5 g/dL (12.0-16.0); LYMPHOCYTES # (AUTO) 1.6 K/uL (1.0-4.8); LYMPHOCYTES % (AUTO) 18.6 % (22.0-44.0); MEAN CORPUSCULAR HEMOGLOBIN 29.5 pg (26.0-34.0); MEAN CORPUSCULAR VOLUME 87 fL (80-100); MONOCYTES # (AUTO) 0.7 K/uL (0.1-1.0); NEUTROPHILS # (AUTO) 6.1 K/uL (1.8-7.7); NEUTROPHILS % (AUTO) 71.1 % (40.0-70.0); PLATELET COUNT (AUTO) 460 K/uL (150-450); RED BLOOD CELL COUNT(AUTO) 4.58 MIL/uL (4.00-5.20); RED CELL DISTRIBUTION WIDTH 12.9 % (11.5-14.5)
[2021-09-09 16:14] LABS: ANION GAP 10 mmol/L (8-16); CALCIUM, TOTAL 8.7 mg/dL (8.8-10.5); CARBON DIOXIDE 23 mmol/L (22-29); CHLORIDE 105 mmol/L (98-107); CREATININE 0.79 mg/dL (0.60-1.30); GLOMERULAR FILTR. RATE CALC > 60 mL/min (>60); GLUCOSE,RANDOM 112 mg/dL (70-110); POTASSIUM 3.4 mmol/L (3.5-5.1); SODIUM SERUM 138 mmol/L (136-145); UREA NITROGEN, BLOOD 8 mg/dL (7-18)
[2021-09-09 16:25] LABS: ALANINE AMINOTRANSFERASE 30 U/L (12-78); ALBUMIN 3.5 g/dL (3.4-5.0); ALKALINE PHOSPHATASE 67 U/L (46-116); ASPARTATE AMINOTRANSFERASE 13 U/L (15-37); BILIRUBIN,TOTAL 0.3 mg/dL (0.1-1.0); HCG,QUANTITATIVE < 1 mIU/mL (0-6); TOTAL PROTEIN, SERUM 7.8 g/dL (6.4-8.2)
[2021-09-09 16:33] LABS: COVID AG,FIA SOURCE NASOPHARYNGEAL
[2021-09-10 08:39] VITALS: BP 107/62
[2021-09-10 08:53] LABS: AMPHET/METH SCREEN,URINE NEGATIVE (NEGATIVE); BARBITURATE SCREEN, URINE NEGATIVE (NEGATIVE); BENZODIAZEPINES SCREEN,URINE NEGATIVE (NEGATIVE); CANNABINOID SCREEN,URINE NEGATIVE (NEGATIVE); COCAINE SCREEN,URINE NEGATIVE (NEGATIVE); METHADONE SCREEN, URINE NEGATIVE (NEGATIVE); OPIATE SCREEN,URINE NEGATIVE (NEGATIVE); PHENCYCLIDINE SCREEN,URINE NEGATIVE (NEGATIVE)
[2021-09-10 09:11] VITALS: BP 107/62
[2021-09-10] MEDS: LORazepam 2 MG TABLET PO PRN (09:15)
[2021-09-10] MEDS: QUEtiapine FUMARATE 100 MG TABLET PO PRN (09:15)
[2021-09-10] MEDS: LevETIRAcetam 500 MG TABLET PO SCH (14:04)
[2021-09-10 16:17] VITALS: BP 126/81
[2021-09-11] MEDS: LevETIRAcetam 500 MG TABLET PO SCH ×2 (08:11→16:18)
[2021-09-11] MEDS: VENLAFAXINE HCL 150 MG ER CAPSULE PO SCH (11:26)
[2021-09-11] MEDS: ARIPiprazole 15 MG TABLET PO SCH (11:26)
[2021-09-11] MEDS: LURASIDONE HCL 40 MG TABLET PO SCH (11:26)
[2021-09-11] MEDS: BENZTROPINE MESYLATE 2 MG TABLET PO SCH ×2 (11:27→16:18)
[2021-09-11] MEDS ORDERED: LOPERAMIDE HCL 2 MG CAPSULE PO PRN (13:15)
[2021-09-11] MEDS ORDERED: GuaiFENesin/D-METHORPHAN [SUGAR-FREE] 200-20MG/10 ML SYRUP UDCUP PO PRN (13:15)
[2021-09-11] MEDS ORDERED: ONDANSETRON HCL 4 MG TABLET PO PRN (13:15)
[2021-09-11] MEDS ORDERED: ACETAMINOPHEN 325 MG TABLET PO PRN (13:15)
[2021-09-11] MEDS ORDERED: MAG HYDROX/AL HYDROX/SIMETH ES 30 ML SUSPENSION UDCUP PO PRN (13:15)
[2021-09-11] MEDS ORDERED: PETROLATUM,WHITE 28 GM JELLY TP PRN (13:15)
[2021-09-11] MEDS ORDERED: IBUPROFEN 400 MG TABLET PO PRN (13:15)
[2021-09-11] MEDS ORDERED: ALBUTEROL SULFATE HFA 90 MCG/PUFF 8 GM INHALER IH PRN (13:15)
[2021-09-11] MEDS ORDERED: NICOTINE 14 MG/24 HOUR PATCH TD PRN (13:15)
[2021-09-11] MEDS ORDERED: MAGNESIUM HYDROXIDE SUSPENSION 30 ML UDCUP PO PRN (13:15)
[2021-09-11] MEDS ORDERED: DOCUSATE SODIUM 100 MG CAPSULE PO PRN (13:15)
[2021-09-11] MEDS ORDERED: CloNIDine HCL 0.1 MG TABLET PO PRN (13:15)
[2021-09-11 16:19] VITALS: BP 97/63
[2021-09-11] MEDS ORDERED: LevETIRAcetam 500 MG TABLET PO SCH (17:00)
[2021-09-12] MEDS: LURASIDONE HCL 40 MG TABLET PO SCH ×2 (06:51→17:35)
[2021-09-12 08:00] VITALS: BP 97/51
[2021-09-12] MEDS: QUEtiapine FUMARATE 100 MG TABLET PO PRN (09:04)
[2021-09-12] MEDS: LORazepam 2 MG TABLET PO PRN (09:04)
[2021-09-12] MEDS: LevETIRAcetam 500 MG TABLET PO SCH ×2 (09:04→16:52)
[2021-09-12] MEDS: BENZTROPINE MESYLATE 2 MG TABLET PO SCH ×2 (09:04→16:52)
[2021-09-12] MEDS: ARIPiprazole 15 MG TABLET PO SCH (09:04)
[2021-09-12] MEDS: VENLAFAXINE HCL 150 MG ER CAPSULE PO SCH (09:05)
[2021-09-12 16:25] VITALS: BP 101/61
[2021-09-13] MEDS: LURASIDONE HCL 40 MG TABLET PO SCH ×2 (06:51→17:05)
[2021-09-13 08:34] VITALS: BP 101/51
[2021-09-13] MEDS: LevETIRAcetam 500 MG TABLET PO SCH ×2 (09:19→17:05)
[2021-09-13] MEDS: ARIPiprazole 15 MG TABLET PO SCH (09:19)
[2021-09-13] MEDS: VENLAFAXINE HCL 150 MG ER CAPSULE PO SCH (09:19)
[2021-09-13] MEDS: BENZTROPINE MESYLATE 2 MG TABLET PO SCH ×2 (09:19→17:05)
[2021-09-14] MEDS: LURASIDONE HCL 40 MG TABLET PO SCH (06:32)
[2021-09-14 08:30] VITALS: BP 107/73
[2021-09-14] MEDS: BENZTROPINE MESYLATE 2 MG TABLET PO SCH (09:39)
[2021-09-14] MEDS: ARIPiprazole 15 MG TABLET PO SCH (09:39)
[2021-09-14] MEDS: VENLAFAXINE HCL 150 MG ER CAPSULE PO SCH (09:40)
[2021-09-14] MEDS: LevETIRAcetam 500 MG TABLET PO SCH (09:40)
== END 2021-09-14 15:08 | disposition home or self-care (01) | DRG 750 ==
LOC: EMS 14:27 → 3EC 09-10 08:28
PROVIDERS: ADMIT Psychiatry & Neurology Child & Adolescent Psychiatry; ATTEND Psychiatry & Neurology Child & Adolescent Psychiatry
DX: F25.1 Schizoaffective disorder, depressive type (principal); G40.909 Epilepsy, unspecified, not intractable, without status epilepticus; R45.851 Suicidal ideations; Z20.822 Contact with and (suspected) exposure to COVID-19; E66.9 Obesity, unspecified; R00.0 Tachycardia, unspecified; E87.6 Hypokalemia; M10.9 Gout, unspecified; M19.90 Unspecified osteoarthritis, unspecified site; Z91.51 Personal history of suicidal behavior; Z68.35 Body mass index [BMI] 35.0-35.9, adult; Z88.0 Allergy status to penicillin; Z79.899 Other long term (current) drug therapy
CPT/HCPCS: 80053; 84702; 85025; 99285; G0480

== ENCOUNTER 2021-10-06 18:18 | Inpatient (IN) | payer MEDICAID, OTHER ==
[~2021-10-06] VITALS: Ht 165.1 cm; Wt 93.0 kg
[2021-10-06 18:44] LABS: BASOPHILS % (AUTO) 0.4 % (0.0-2.0); EOSINOPHILS % (AUTO) 3.8 % (1.0-6.0); HEMATOCRIT 39.2 % (36-46); HEMOGLOBIN 13.4 g/dL (12.0-16.0); LYMPHOCYTES # (AUTO) 2.3 K/uL (1.0-4.8); LYMPHOCYTES % (AUTO) 28.4 % (22.0-44.0); MEAN CORPUSCULAR HEMOGLOBIN 29.5 pg (26.0-34.0); MEAN CORPUSCULAR HGB CONC 34.3 G/dL (31.0-37.0); MEAN CORPUSCULAR VOLUME 86 fL (80-100); MONOCYTES # (AUTO) 0.7 K/uL (0.1-1.0); MONOCYTES % (AUTO) 9.1 % (2.0-9.0); NEUTROPHILS # (AUTO) 4.8 K/uL (1.8-7.7); NEUTROPHILS % (AUTO) 58.3 % (40.0-70.0); PLATELET COUNT (AUTO) 438 K/uL (150-450); RED BLOOD CELL COUNT(AUTO) 4.56 MIL/uL (4.00-5.20); RED CELL DISTRIBUTION WIDTH 13.2 % (11.5-14.5)
[2021-10-06] MEDS ORDERED: SODIUM CHLORIDE 0.9% 250 ML IRRIG SOLUTION BOTTLE IRRIG ONE (18:45)
[2021-10-06 18:55] LABS: CARBON DIOXIDE 26 mmol/L (22-29); CHLORIDE 105 mmol/L (98-107); CREATININE 0.94 mg/dL (0.60-1.30); GLOMERULAR FILTR. RATE CALC > 60 mL/min (>60); GLUCOSE,RANDOM 90 mg/dL (70-110); UREA NITROGEN, BLOOD 8 mg/dL (7-18)
[2021-10-06 19:07] LABS: ALANINE AMINOTRANSFERASE 36 U/L (12-78); ALBUMIN 3.7 g/dL (3.4-5.0); ALKALINE PHOSPHATASE 74 U/L (46-116); ANION GAP 10 mmol/L (8-16); ASPARTATE AMINOTRANSFERASE 16 U/L (15-37); BILIRUBIN,TOTAL 0.3 mg/dL (0.1-1.0); HCG,QUANTITATIVE < 1 mIU/mL (0-6); POTASSIUM 3.7 mmol/L (3.5-5.1); SODIUM SERUM 141 mmol/L (136-145); TOTAL PROTEIN, SERUM 7.5 g/dL (6.4-8.2)
[2021-10-06 19:10] LABS: COVID AG,FIA SOURCE NASAL SWAB
[2021-10-06] MEDS ORDERED: DiphenhydrAMINE HCL 25 MG CAPSULE PO ONE (20:45)
[2021-10-06] MEDS ORDERED: HALOPERIDOL 5 MG TABLET PO ONE (20:45)
[2021-10-06] MEDS ORDERED: ZOLPIDEM TARTRATE 10 MG TABLET PO PRN (22:15)
[2021-10-07] MEDS ORDERED: GuaiFENesin/D-METHORPHAN [SUGAR-FREE] 200-20MG/10 ML SYRUP UDCUP PO PRN (15:30)
[2021-10-07] MEDS ORDERED: NICOTINE 14 MG/24 HOUR PATCH TD PRN (15:30)
[2021-10-07] MEDS ORDERED: MAGNESIUM HYDROXIDE SUSPENSION 30 ML UDCUP PO PRN (15:30)
[2021-10-07] MEDS ORDERED: MAG HYDROX/AL HYDROX/SIMETH ES 30 ML SUSPENSION UDCUP PO PRN (15:30)
[2021-10-07] MEDS ORDERED: ONDANSETRON HCL 4 MG TABLET PO PRN (15:30)
[2021-10-07] MEDS ORDERED: DOCUSATE SODIUM 100 MG CAPSULE PO PRN (15:30)
[2021-10-07] MEDS ORDERED: IBUPROFEN 400 MG TABLET PO PRN (15:30)
[2021-10-07] MEDS ORDERED: ALBUTEROL SULFATE HFA 90 MCG/PUFF 8 GM INHALER IH PRN (15:30)
[2021-10-07] MEDS ORDERED: ACETAMINOPHEN 325 MG TABLET PO PRN (15:30)
[2021-10-07] MEDS ORDERED: CloNIDine HCL 0.1 MG TABLET PO PRN (15:30)
[2021-10-07] MEDS ORDERED: PETROLATUM,WHITE 28 GM JELLY TP PRN (15:30)
[2021-10-07] MEDS ORDERED: LOPERAMIDE HCL 2 MG CAPSULE PO PRN (15:30)
[2021-10-07 16:25] VITALS: BP 110/74
[2021-10-07] MEDS: LevETIRAcetam 500 MG TABLET PO SCH (16:29)
[2021-10-07] MEDS: LORazepam 1 MG TABLET PO PRN (16:45)
[2021-10-08 08:15] VITALS: BP 121/71
[2021-10-08] MEDS: HALOPERIDOL 5 MG TABLET PO PRN (08:42)
[2021-10-08] MEDS: LevETIRAcetam 500 MG TABLET PO SCH ×2 (08:42→16:19)
[2021-10-08] MEDS: LORazepam 1 MG TABLET PO PRN ×2 (08:42→13:59)
[2021-10-08] MEDS: ARIPiprazole 15 MG TABLET PO SCH (13:59)
[2021-10-08] MEDS: VENLAFAXINE HCL 150 MG ER CAPSULE PO SCH (14:41)
[2021-10-08 16:04] VITALS: BP_SYST 102; BP_SYST 140; BP_DIAS 75; BP_DIAS 81
[2021-10-08] MEDS: LURASIDONE HCL 40 MG TABLET PO SCH (16:19)
[2021-10-08] MEDS: BENZTROPINE MESYLATE 2 MG TABLET PO SCH (16:19)
[2021-10-09] MEDS: LURASIDONE HCL 40 MG TABLET PO SCH ×2 (06:38→16:46)
[2021-10-09] MEDS: LORazepam 1 MG TABLET PO PRN ×2 (08:02→16:00)
[2021-10-09] MEDS: LevETIRAcetam 500 MG TABLET PO SCH ×2 (08:02→16:46)
[2021-10-09] MEDS: VENLAFAXINE HCL 150 MG ER CAPSULE PO SCH (08:02)
[2021-10-09] MEDS: BENZTROPINE MESYLATE 2 MG TABLET PO SCH ×2 (08:02→16:46)
[2021-10-09] MEDS: ARIPiprazole 15 MG TABLET PO SCH (08:02)
[2021-10-09] MEDS: HALOPERIDOL 5 MG TABLET PO PRN ×2 (08:02→16:00)
[2021-10-09 08:07] VITALS: BP 113/54
[2021-10-09 16:10] VITALS: BP 107/67
[2021-10-10] MEDS: LURASIDONE HCL 40 MG TABLET PO SCH ×2 (06:54→18:33)
[2021-10-10] MEDS: ARIPiprazole 15 MG TABLET PO SCH (09:21)
[2021-10-10] MEDS: LevETIRAcetam 500 MG TABLET PO SCH ×2 (09:21→18:33)
[2021-10-10] MEDS: BENZTROPINE MESYLATE 2 MG TABLET PO SCH ×2 (09:21→18:33)
[2021-10-10] MEDS: HALOPERIDOL 5 MG TABLET PO PRN (09:22)
[2021-10-10] MEDS: LORazepam 1 MG TABLET PO PRN (09:22)
[2021-10-10] MEDS: VENLAFAXINE HCL 150 MG ER CAPSULE PO SCH (10:39)
[2021-10-11] MEDS: LURASIDONE HCL 40 MG TABLET PO SCH ×2 (06:58→17:47)
[2021-10-11 08:05] VITALS: BP 91/49
[2021-10-11] MEDS: LevETIRAcetam 500 MG TABLET PO SCH ×2 (08:09→16:02)
[2021-10-11] MEDS: ARIPiprazole 15 MG TABLET PO SCH (08:09)
[2021-10-11] MEDS: BENZTROPINE MESYLATE 2 MG TABLET PO SCH ×2 (08:09→16:02)
[2021-10-11] MEDS: VENLAFAXINE HCL 150 MG ER CAPSULE PO SCH (08:09)
[2021-10-11] MEDS: LORazepam 1 MG TABLET PO PRN ×2 (11:51→17:01)
[2021-10-11 16:51] VITALS: BP 108/64
[2021-10-12 06:31] LABS: COVID AG,FIA SOURCE NASAL SWAB
[2021-10-12] MEDS: LURASIDONE HCL 40 MG TABLET PO SCH ×2 (06:35→17:09)
[2021-10-12 08:12] VITALS: BP 90/51
[2021-10-12] MEDS: VENLAFAXINE HCL 150 MG ER CAPSULE PO SCH (08:35)
[2021-10-12] MEDS: LORazepam 1 MG TABLET PO PRN ×2 (08:35→12:17)
[2021-10-12] MEDS: LevETIRAcetam 500 MG TABLET PO SCH ×2 (08:35→16:05)
[2021-10-12] MEDS: HALOPERIDOL 5 MG TABLET PO PRN ×4 (08:35→17:09)
[2021-10-12] MEDS: ARIPiprazole 15 MG TABLET PO SCH (08:35)
[2021-10-12] MEDS: BENZTROPINE MESYLATE 2 MG TABLET PO SCH ×2 (08:36→16:05)
[2021-10-12 16:03] VITALS: BP 103/63
[2021-10-13] MEDS: LURASIDONE HCL 40 MG TABLET PO SCH ×2 (06:37→17:16)
[2021-10-13] MEDS: VENLAFAXINE HCL 150 MG ER CAPSULE PO SCH (07:54)
[2021-10-13] MEDS: LORazepam 1 MG TABLET PO PRN ×3 (07:54→19:00)
[2021-10-13] MEDS: BENZTROPINE MESYLATE 2 MG TABLET PO SCH ×2 (07:55→16:30)
[2021-10-13] MEDS: ARIPiprazole 15 MG TABLET PO SCH (07:55)
[2021-10-13] MEDS: LevETIRAcetam 500 MG TABLET PO SCH ×2 (07:56→16:30)
[2021-10-13] MEDS: HALOPERIDOL 5 MG TABLET PO PRN ×3 (07:56→19:00)
[2021-10-13 08:05] VITALS: BP 113/70
[2021-10-13 16:35] VITALS: BP 121/75
[2021-10-14] MEDS: LURASIDONE HCL 40 MG TABLET PO SCH ×2 (06:42→17:11)
[2021-10-14 08:23] VITALS: BP 104/68
[2021-10-14] MEDS: LevETIRAcetam 500 MG TABLET PO SCH ×2 (08:25→16:49)
[2021-10-14] MEDS: BENZTROPINE MESYLATE 2 MG TABLET PO SCH ×2 (08:26→16:49)
[2021-10-14] MEDS: ARIPiprazole 15 MG TABLET PO SCH (08:26)
[2021-10-14] MEDS: VENLAFAXINE HCL 150 MG ER CAPSULE PO SCH (08:26)
[2021-10-14] MEDS: HALOPERIDOL 5 MG TABLET PO PRN (15:35)
[2021-10-14 16:02] VITALS: BP 107/65
[2021-10-14] MEDS: LORazepam 1 MG TABLET PO PRN (16:50)
[2021-10-15] MEDS: LURASIDONE HCL 40 MG TABLET PO SCH ×2 (06:38→17:40)
[2021-10-15 08:25] VITALS: BP 93/60
[2021-10-15] MEDS: ARIPiprazole 15 MG TABLET PO SCH (08:27)
[2021-10-15] MEDS: LevETIRAcetam 500 MG TABLET PO SCH ×2 (08:27→16:36)
[2021-10-15] MEDS: BENZTROPINE MESYLATE 2 MG TABLET PO SCH ×2 (08:28→16:36)
[2021-10-15] MEDS: VENLAFAXINE HCL 150 MG ER CAPSULE PO SCH (08:28)
[2021-10-15] MEDS: HALOPERIDOL 5 MG TABLET PO PRN (14:33)
[2021-10-15] MEDS: LORazepam 1 MG TABLET PO PRN (14:33)
[2021-10-15 16:25] VITALS: BP 120/87
[2021-10-16] MEDS: LURASIDONE HCL 40 MG TABLET PO SCH ×2 (06:34→16:48)
[2021-10-16] MEDS: LORazepam 1 MG TABLET PO PRN ×2 (07:36→16:49)
[2021-10-16] MEDS: ARIPiprazole 15 MG TABLET PO SCH (07:36)
[2021-10-16] MEDS: HALOPERIDOL 5 MG TABLET PO PRN ×2 (07:36→16:49)
[2021-10-16] MEDS: BENZTROPINE MESYLATE 2 MG TABLET PO SCH ×2 (07:37→16:48)
[2021-10-16] MEDS: VENLAFAXINE HCL 150 MG ER CAPSULE PO SCH (07:37)
[2021-10-16] MEDS: LevETIRAcetam 500 MG TABLET PO SCH ×2 (07:37→16:48)
[2021-10-16 08:16] VITALS: BP 118/82
[2021-10-16 16:05] VITALS: BP 108/66
[2021-10-16 16:06] VITALS: BP 108/66
[2021-10-17] MEDS: LURASIDONE HCL 40 MG TABLET PO SCH ×2 (06:42→16:21)
[2021-10-17 08:05] VITALS: BP 106/63
[2021-10-17] MEDS: LevETIRAcetam 500 MG TABLET PO SCH ×2 (09:57→16:21)
[2021-10-17] MEDS: ARIPiprazole 15 MG TABLET PO SCH (09:57)
[2021-10-17] MEDS: LORazepam 1 MG TABLET PO PRN ×2 (09:57→13:57)
[2021-10-17] MEDS: BENZTROPINE MESYLATE 2 MG TABLET PO SCH ×2 (09:57→16:21)
[2021-10-17] MEDS: VENLAFAXINE HCL 150 MG ER CAPSULE PO SCH (09:58)
[2021-10-17 12:12] LABS: COVID AG,FIA SOURCE NASOPHARYNGEAL
[2021-10-17] MEDS: HALOPERIDOL 5 MG TABLET PO PRN ×2 (13:57→16:21)
[2021-10-17 16:13] VITALS: BP 107/67
[2021-10-18] MEDS: LURASIDONE HCL 40 MG TABLET PO SCH (06:42)
[2021-10-18] MEDS: LevETIRAcetam 500 MG TABLET PO SCH (08:02)
[2021-10-18] MEDS: ARIPiprazole 15 MG TABLET PO SCH (08:03)
[2021-10-18] MEDS: VENLAFAXINE HCL 150 MG ER CAPSULE PO SCH (08:03)
[2021-10-18] MEDS: BENZTROPINE MESYLATE 2 MG TABLET PO SCH (08:03)
[2021-10-18 08:05] VITALS: BP 109/71
[2021-10-18] MEDS ORDERED: ARIP15TA27 PO (13:05)
[2021-10-18] MEDS ORDERED: BENZ2TAB76 PO (13:05)
[2021-10-18] MEDS ORDERED: LURA40TA2 PO (13:05)
[2021-10-18] MEDS ORDERED: VENL150C4 PO (13:05)
== END 2021-10-18 14:30 | disposition home or self-care (01) | DRG 750 ==
LOC: EMS 18:26 → 3EC 10-07 13:34
PROVIDERS: ADMIT Psychiatry & Neurology Child & Adolescent Psychiatry; ATTEND Psychiatry & Neurology Child & Adolescent Psychiatry
DX: F25.1 Schizoaffective disorder, depressive type (principal); G40.909 Epilepsy, unspecified, not intractable, without status epilepticus; R45.851 Suicidal ideations; F41.9 Anxiety disorder, unspecified; M10.9 Gout, unspecified; M19.90 Unspecified osteoarthritis, unspecified site; S61.511A Laceration without foreign body of right wrist, initial encounter; Z20.822 Contact with and (suspected) exposure to COVID-19; Z88.0 Allergy status to penicillin; W45.8XXA Other foreign body or object entering through skin, initial encounter; Y93.89 Activity, other specified; Y92.89 Other specified places as the place of occurrence of the external cause; Y99.8 Other external cause status
CPT/HCPCS: 80053; 84702; 85025; 87081; 99285; G0480

== ENCOUNTER 2023-05-30 08:15 | Inpatient (IN) | payer MEDICAID ==
[~2023-05-30] VITALS: Ht 165.1 cm; Wt 108.5 kg
[~2023-05-30 08:15] MED LIST changes: +ARIP15TA27 PO; +BENZ2TAB71 PO; -BENZ2TAB76 PO; -VENL-68 PO; +VENL150C5 PO
[2023-05-30] MEDS ORDERED: ZOLPIDEM TARTRATE 10 MG TABLET PO PRN (09:45)
[2023-05-30] MEDS ORDERED: HALOPERIDOL 5 MG TABLET PO PRN (09:45)
[2023-05-30 12:34] VITALS: BP 105/63; PULSE 79; RESP 18; TEMP 97.9; O2SAT 99
[2023-05-30] MEDS ORDERED: INFLUENZA VIRUS VACCINE QVS 2023-24 (6MO+)/PF 60 MCG/0.5 ML SYRINGE IM. ONE (13:30)
[2023-05-30] MEDS: LevETIRAcetam 500 MG TABLET PO SCH (16:07)
[2023-05-30 20:00] VITALS: BP 110/62; PULSE 74; RESP 18; TEMP 97.7; O2SAT 98
[2023-05-31] MEDS: VENLAFAXINE HCL 150 MG ER CAPSULE PO SCH (08:07)
[2023-05-31] MEDS: LORazepam 2 MG TABLET PO PRN ×2 (08:07→16:04)
[2023-05-31] MEDS: ARIPiprazole 15 MG TABLET PO SCH (08:07)
[2023-05-31] MEDS: LevETIRAcetam 500 MG TABLET PO SCH ×2 (08:07→16:04)
[2023-05-31 09:04] VITALS: BP 116/67; PULSE 88; RESP 18; TEMP 98; O2SAT 99
[2023-05-31 21:04] VITALS: BP 99/60; PULSE 89; RESP 18; TEMP 97.8; O2SAT 98
[2023-06-01 03:07] LABS: HEPATITIS C AB (EIA) Non Reactive (Non Reactive)
[2023-06-01 08:32] VITALS: RESP 16
[2023-06-01] MEDS: ARIPiprazole 15 MG TABLET PO SCH (08:36)
[2023-06-01] MEDS: LevETIRAcetam 500 MG TABLET PO SCH ×2 (08:36→16:01)
[2023-06-01] MEDS: VENLAFAXINE HCL 150 MG ER CAPSULE PO SCH (08:36)
[2023-06-01] MEDS: LORazepam 2 MG TABLET PO PRN ×2 (08:37→16:01)
[2023-06-01] MEDS ORDERED: DOCUSATE SODIUM 100 MG CAPSULE PO PRN (15:15)
[2023-06-01] MEDS ORDERED: BACITRACIN 28 GM OINTMENT TP PRN (15:15)
[2023-06-01] MEDS ORDERED: IBUPROFEN 600 MG TABLET PO PRN (15:15)
[2023-06-01] MEDS ORDERED: ALBUTEROL SULFATE HFA 90 MCG/PUFF 8 GM INHALER IH PRN (15:15)
[2023-06-01] MEDS ORDERED: BENZOCAINE/MENTHOL LOZENGE PO PRN (15:15)
[2023-06-01] MEDS ORDERED: LOPERAMIDE HCL 2 MG CAPSULE PO PRN (15:15)
[2023-06-01] MEDS ORDERED: ONDANSETRON HCL 4 MG TABLET PO PRN (15:15)
[2023-06-01] MEDS ORDERED: ACETAMINOPHEN 325 MG TABLET PO PRN (15:15)
[2023-06-01] MEDS ORDERED: PETROLATUM,WHITE 28 GM JELLY TP PRN (15:15)
[2023-06-01] MEDS ORDERED: MAG HYDROX/ALUMINUM HYD/SIMETH ES 30 ML SUSPENSION UDCUP PO PRN (15:15)
[2023-06-01] MEDS ORDERED: MAGNESIUM HYDROXIDE SUSPENSION 30 ML UDCUP PO PRN (15:15)
[2023-06-01] MEDS ORDERED: OMEPRAZOLE 20 MG CAPSULE PO PRN (15:15)
[2023-06-01] MEDS ORDERED: CloNIDine HCL 0.1 MG TABLET PO PRN (15:15)
[2023-06-01 20:00] VITALS: RESP 16
[2023-06-02 08:29] VITALS: BP 111/70; PULSE 79; RESP 16; TEMP 98; O2SAT 97
[2023-06-02] MEDS: LevETIRAcetam 500 MG TABLET PO SCH ×2 (09:38→16:33)
[2023-06-02] MEDS: VENLAFAXINE HCL 150 MG ER CAPSULE PO SCH (09:39)
[2023-06-02] MEDS: ARIPiprazole 15 MG TABLET PO SCH (09:39)
[2023-06-02 14:28] VITALS: BP 110/81; RESP 18; O2SAT 99
[2023-06-02 20:20] VITALS: RESP 18
[2023-06-03] MEDS: VENLAFAXINE HCL 150 MG ER CAPSULE PO SCH (08:09)
[2023-06-03] MEDS: ARIPiprazole 15 MG TABLET PO SCH (08:09)
[2023-06-03] MEDS: LevETIRAcetam 500 MG TABLET PO SCH (08:09)
[2023-06-03 08:17] VITALS: BP 108/63; PULSE 100; RESP 18; TEMP 97.8; O2SAT 98
[2023-06-03] MEDS: LORazepam 2 MG TABLET PO PRN (10:03)
== END 2023-06-03 15:30 | disposition home or self-care (01) | DRG 750 ==
LOC: B3A 09:53
PROVIDERS: ADMIT Psychiatry & Neurology Psychiatry; ATTEND Psychiatry & Neurology Psychiatry
DX: F25.9 Schizoaffective disorder, unspecified (principal); G40.909 Epilepsy, unspecified, not intractable, without status epilepticus; E55.9 Vitamin D deficiency, unspecified; G47.00 Insomnia, unspecified; K59.00 Constipation, unspecified; E66.9 Obesity, unspecified; Z88.0 Allergy status to penicillin; Z68.39 Body mass index [BMI] 39.0-39.9, adult
CPT/HCPCS: 86803; 87340

== ENCOUNTER 2023-07-28 17:25 | Emergency (ER) | payer MEDICAID, OTHER ==
[~2023-07-28] VITALS: Ht 162.6 cm; Wt 95.0 kg
[~2023-07-28 17:25] MED LIST changes: -BENZ2TAB71 PO; -LURA40TA2 PO
[2023-07-28 18:12] VITALS: TEMP 98.1
[2023-07-28 18:51] LABS: BASOPHILS % (AUTO) 0.5 % (0.0-2.0); EOSINOPHILS % (AUTO) 1.3 % (1.0-6.0); HEMATOCRIT 43.2 % (36-46); HEMOGLOBIN 14.4 g/dL (12.0-16.0); LYMPHOCYTES # (AUTO) 1.9 K/uL (1.0-4.8); LYMPHOCYTES % (AUTO) 21.5 % (22.0-44.0); MEAN CORPUSCULAR HEMOGLOBIN 29.5 pg (26.0-34.0); MEAN CORPUSCULAR HGB CONC 33.3 G/dL (31.0-37.0); MEAN CORPUSCULAR VOLUME 89 fL (80-100); MONOCYTES # (AUTO) 0.9 K/uL (0.1-1.0); MONOCYTES % (AUTO) 10.8 % (2.0-9.0); NEUTROPHILS # (AUTO) 5.8 K/uL (1.8-7.7); NEUTROPHILS % (AUTO) 65.9 % (40.0-70.0); PLATELET COUNT (AUTO) 429 K/uL (150-450); RED BLOOD CELL COUNT(AUTO) 4.87 MIL/uL (4.00-5.20); RED CELL DISTRIBUTION WIDTH 12.8 % (11.5-14.5); WHITE BLOOD COUNT (AUTO) 8.8 K/uL (4.5-11.0)
[2023-07-28 18:56] LABS: ANION GAP 9 mmol/L (8-16); CALCIUM, TOTAL 9.3 mg/dL (8.8-10.5); CARBON DIOXIDE 25 mmol/L (22-29); CHLORIDE 104 mmol/L (98-107); CREATININE 0.75 mg/dL (0.60-1.30); GLOMERULAR FILTR. RATE CALC > 60 mL/min (>60); GLUCOSE,RANDOM 102 mg/dL (70-110); POTASSIUM 3.8 mmol/L (3.5-5.1); SODIUM SERUM 138 mmol/L (136-145); UREA NITROGEN, BLOOD 8 mg/dL (7-18)
[2023-07-28] MEDS ORDERED: BENZ0.5T6 PO (19:01)
[2023-07-28 19:02] LABS: ALANINE AMINOTRANSFERASE 82 U/L (12-78); ALBUMIN 3.9 g/dL (3.4-5.0); ALKALINE PHOSPHATASE 87 U/L (46-116); ASPARTATE AMINOTRANSFERASE 38 U/L (15-37); BILIRUBIN,TOTAL 0.3 mg/dL (0.1-1.0); TOTAL PROTEIN, SERUM 7.4 g/dL (6.4-8.2)
[2023-07-28 19:09] LABS: TROPONIN I-HIGH SENSITIVITY Less Than 4 ng/L (<51)
[2023-07-28 19:30] LABS: COVID AG,FIA SOURCE NASAL SWAB
[2023-07-28 19:48] LABS: SARS-COV2 (COVID) ANTIGEN,FIA Negative (Negative)
[2023-07-28 20:15] LABS: TROPONIN I-HIGH SENSITIVITY 4 ng/L (<51)
[2023-07-28 21:07] VITALS: BP 120/72; PULSE 70; RESP 16
== END 2023-07-29 02:41 ==
LOC: EMS 17:27
DX: M94.0 Chondrocostal junction syndrome [Tietze] (principal); F41.9 Anxiety disorder, unspecified; M19.90 Unspecified osteoarthritis, unspecified site; F31.9 Bipolar disorder, unspecified; F20.9 Schizophrenia, unspecified; F12.90 Cannabis use, unspecified, uncomplicated; Z98.51 Tubal ligation status; Z98.890 Other specified postprocedural states; Z88.0 Allergy status to penicillin; Z20.822 Contact with and (suspected) exposure to COVID-19
CPT/HCPCS: 71045; 80053; 84484; 84703; 85025; 93005; 99285; 36415-L1; 36415-TC

== ENCOUNTER 2024-01-21 22:17 | Emergency (ER) | payer MEDICAID, OTHER ==
[~2024-01-21] VITALS: Ht 162.6 cm; Wt 106.8 kg
[~2024-01-21 22:17] MED LIST changes: -ARIP15TA27 PO; +BENZ0.5T52 PO; +LEVE-71 PO; -LEVE500T20 PO; +OLAN10TA74 PO; +VENL-67 PO; -VENL150C5 PO
[2024-01-21 22:59] LABS: BASOPHILS % (AUTO) 0.3 % (0.0-2.0); EOSINOPHILS % (AUTO) 3.1 % (1.0-6.0); HEMATOCRIT 37.9 % (36-46); HEMOGLOBIN 12.7 g/dL (12.0-16.0); LYMPHOCYTES # (AUTO) 2.6 K/uL (1.0-4.8); LYMPHOCYTES % (AUTO) 29.2 % (22.0-44.0); MEAN CORPUSCULAR HEMOGLOBIN 29.6 pg (26.0-34.0); MEAN CORPUSCULAR HGB CONC 33.4 G/dL (31.0-37.0); MEAN CORPUSCULAR VOLUME 89 fL (80-100); MONOCYTES # (AUTO) 0.9 K/uL (0.1-1.0); NEUTROPHILS % (AUTO) 57.4 % (40.0-70.0); PLATELET COUNT (AUTO) 427 K/uL (150-450); RED BLOOD CELL COUNT(AUTO) 4.27 MIL/uL (4.00-5.20); RED CELL DISTRIBUTION WIDTH 13.2 % (11.5-14.5); WHITE BLOOD COUNT (AUTO) 8.8 K/uL (4.5-11.0)
[2024-01-21 23:08] LABS: ANION GAP 6 mmol/L (8-16); CARBON DIOXIDE 29 mmol/L (22-29); CHLORIDE 103 mmol/L (98-107); CREATININE 0.77 mg/dL (0.60-1.30); GLOMERULAR FILTR. RATE CALC > 60 mL/min (>60); GLUCOSE,RANDOM 97 mg/dL (70-110); POTASSIUM 3.6 mmol/L (3.5-5.1); SODIUM SERUM 138 mmol/L (136-145); UREA NITROGEN, BLOOD 9 mg/dL (7-18)
[2024-01-21 23:11] LABS: ALCOHOL, BLOOD (SERUM) < 3 mg/dL (0-10)
[2024-01-21 23:27] LABS: COVID AG,FIA SOURCE NASAL SWAB
[2024-01-21 23:31] VITALS: BP 114/64; PULSE 81; RESP 18; TEMP 98
[2024-01-21 23:36] LABS: SARS-COV2 (COVID) ANTIGEN,FIA Negative (Negative)
[2024-01-21 23:41] LABS: AMPHET/METH SCREEN,URINE NEGATIVE (NEGATIVE); BARBITURATE SCREEN, URINE NEGATIVE (NEGATIVE); BENZODIAZEPINES SCREEN,URINE NEGATIVE (NEGATIVE); CANNABINOID SCREEN,URINE NEGATIVE (NEGATIVE); COCAINE SCREEN,URINE NEGATIVE (NEGATIVE); METHADONE SCREEN, URINE NEGATIVE (NEGATIVE); OPIATE SCREEN,URINE NEGATIVE (NEGATIVE); PHENCYCLIDINE SCREEN,URINE NEGATIVE (NEGATIVE)
[2024-01-21 23:43] LABS: ALCOHOL, URINE DRUG SCREEN NEGATIVE (NEGATIVE)
== END 2024-01-22 11:31 ==
LOC: EMS 22:18
DX: F25.1 Schizoaffective disorder, depressive type (principal); Z98.890 Other specified postprocedural states; Z88.0 Allergy status to penicillin; Z20.822 Contact with and (suspected) exposure to COVID-19
CPT/HCPCS: 99285; 87426; 80048; 84703; 85025; 36415; 80307; G0480

== ENCOUNTER 2024-01-25 12:18 | Inpatient (IN) | payer MEDICAID ==
[~2024-01-25] VITALS: Ht 162.6 cm; Wt 107.5 kg
[2024-01-25] MEDS ORDERED: LORazepam 2 MG TABLET PO PRN (12:45)
[2024-01-25] MEDS ORDERED: ZOLPIDEM TARTRATE 10 MG TABLET PO PRN (12:45)
[2024-01-25] MEDS ORDERED: OMEP20 PO (13:01)
[2024-01-25 16:04] VITALS: BP 93/57; PULSE 92; RESP 18; TEMP 98.2; O2SAT 98
[2024-01-25] MEDS ORDERED: GuaiFENesin/D-METHORPHAN [SUGAR-FREE] 200-20MG/10 ML SYRUP UDCUP PO PRN (17:15)
[2024-01-25] MEDS ORDERED: LOPERAMIDE HCL 2 MG CAPSULE PO PRN (17:15)
[2024-01-25] MEDS ORDERED: ONDANSETRON HCL 4 MG TABLET PO PRN (17:15)
[2024-01-25] MEDS ORDERED: CloNIDine HCL 0.1 MG TABLET PO PRN (17:15)
[2024-01-25] MEDS ORDERED: IBUPROFEN 400 MG TABLET PO PRN (17:15)
[2024-01-25] MEDS ORDERED: NICOTINE 14 MG/24 HOUR PATCH TD PRN (17:15)
[2024-01-25] MEDS ORDERED: MAGNESIUM HYDROXIDE SUSPENSION 30 ML UDCUP PO PRN (17:15)
[2024-01-25] MEDS ORDERED: ALBUTEROL SULFATE HFA 90 MCG/PUFF 8 GM INHALER IH PRN (17:15)
[2024-01-25] MEDS ORDERED: MAG HYDROX/ALUMINUM HYD/SIMETH ES 30 ML SUSPENSION UDCUP PO PRN (17:15)
[2024-01-25] MEDS ORDERED: DOCUSATE SODIUM 100 MG CAPSULE PO PRN (17:15)
[2024-01-25] MEDS ORDERED: PETROLATUM,WHITE 28 GM JELLY TP PRN (17:15)
[2024-01-25] MEDS: LevETIRAcetam 500 MG TABLET PO SCH (17:17)
[2024-01-25] MEDS: HALOPERIDOL 5 MG TABLET PO PRN (17:17)
[2024-01-25] MEDS: VENLAFAXINE HCL 75 MG ER CAPSULE PO SCH (17:33)
[2024-01-25 20:00] VITALS: BP 98/50; PULSE 85; RESP 17; TEMP 96.8; O2SAT 96
[2024-01-25] MEDS: OLANZapine 10 MG TABLET PO SCH (20:13)
[2024-01-26 08:20] LABS: BASOPHILS % (AUTO) 0.3 % (0.0-2.0); EOSINOPHILS % (AUTO) 3.1 % (1.0-6.0); HEMOGLOBIN 13.3 g/dL (12.0-16.0); LYMPHOCYTES # (AUTO) 1.9 K/uL (1.0-4.8); LYMPHOCYTES % (AUTO) 22.2 % (22.0-44.0); MEAN CORPUSCULAR HEMOGLOBIN 29.6 pg (26.0-34.0); MEAN CORPUSCULAR HGB CONC 33.3 G/dL (31.0-37.0); MEAN CORPUSCULAR VOLUME 89 fL (80-100); MONOCYTES % (AUTO) 11.1 % (2.0-9.0); NEUTROPHILS # (AUTO) 5.4 K/uL (1.8-7.7); NEUTROPHILS % (AUTO) 63.3 % (40.0-70.0); PLATELET COUNT (AUTO) 443 K/uL (150-450); WHITE BLOOD COUNT (AUTO) 8.6 K/uL (4.5-11.0)
[2024-01-26 08:22] LABS: HEMOGLOBIN A1C 5.7 % (3.8-5.6)
[2024-01-26 08:42] LABS: ALANINE AMINOTRANSFERASE 54 U/L (12-78); ALKALINE PHOSPHATASE 99 U/L (46-116); ANION GAP 10 mmol/L (8-16); ASPARTATE AMINOTRANSFERASE 24 U/L (15-37); BILIRUBIN,TOTAL 0.3 mg/dL (0.1-1.0); CALCIUM, TOTAL 8.6 mg/dL (8.8-10.5); CARBON DIOXIDE 25 mmol/L (22-29); CHLORIDE 103 mmol/L (98-107); CHOL/HDL RATIO 5.7 (3.9-5.7); CHOLESTEROL 195 mg/dL (131-200); GLOMERULAR FILTR. RATE CALC > 60 mL/min (>60); GLUCOSE,RANDOM 89 mg/dL (70-110); HDL CHOLESTEROL 34 mg/dL (40-60); LDL CHOL (CALC.) 119 mg/dL (0-130); POTASSIUM 3.7 mmol/L (3.5-5.1); SODIUM SERUM 138 mmol/L (136-145); TRIGLYCERIDES 209 mg/dL (15-150); UREA NITROGEN, BLOOD 12 mg/dL (7-18)
[2024-01-26] MEDS: OMEPRAZOLE 20 MG CAPSULE PO SCH (10:07)
[2024-01-26] MEDS: BENZTROPINE MESYLATE 0.5 MG TABLET PO SCH (10:08)
[2024-01-26 12:14] VITALS: BP 135/80; PULSE 80; RESP 18; TEMP 97.9; O2SAT 100
[2024-01-26] MEDS ORDERED: BENZTROPINE MESYLATE 0.5 MG TABLET PO SCH (17:00)
[2024-01-26] MEDS: ACETAMINOPHEN 325 MG TABLET PO PRN (21:30)
[2024-01-26 21:41] VITALS: BP 103/68; PULSE 68; RESP 18; TEMP 98.7; O2SAT 95
[2024-01-27 08:42] VITALS: BP 113/66; PULSE 90; RESP 18; TEMP 97.6; O2SAT 93
[2024-01-27] MEDS ORDERED: VENL-67 PO (10:17)
[2024-01-27] MEDS ORDERED: LEVE-71 PO (10:17)
[2024-01-27] MEDS ORDERED: BENZ0.5T52 PO (10:17)
[2024-01-27] MEDS ORDERED: OLAN10TA74 PO (10:17)
[2024-01-27] MEDS ORDERED: OMEP20 PO (10:17)
[2024-01-27] MEDS ORDERED: PNEUMOCOCCAL VACCINE POLYVALENT 0.5 ML SYRINGE [PPSV23] IM. ONE (11:30)
== END 2024-01-27 17:22 | disposition home or self-care (01) | DRG 750 ==
LOC: B2S 12:39
PROVIDERS: ADMIT Psychiatry & Neurology Psychiatry; ATTEND Psychiatry & Neurology Psychiatry
PROC: GZHZZZZ Group Psychotherapy (ICD-10-PCS; principal; 2024-01-26)
PROC: GZ56ZZZ Individual Psychotherapy, Supportive (ICD-10-PCS; 2024-01-26)
DX: F25.1 Schizoaffective disorder, depressive type (principal); R45.851 Suicidal ideations; G40.909 Epilepsy, unspecified, not intractable, without status epilepticus; I10 Essential (primary) hypertension; Z79.899 Other long term (current) drug therapy; Z88.0 Allergy status to penicillin
CPT/HCPCS: 80053; 80061; 83036; 84443; 85025; 87081

== ENCOUNTER 2024-02-09 21:21 | Emergency (ER) | payer MEDICAID ==
[~2024-02-09] VITALS: Ht 162.6 cm; Wt 155.0 kg
[~2024-02-09 21:21] MED LIST changes: +OMEP20 PO
[2024-02-09 22:25] VITALS: TEMP 98.5
[2024-02-10 00:48] LABS: BASOPHILS % (AUTO) 0.3 % (0.0-2.0); EOSINOPHILS % (AUTO) 3.5 % (1.0-6.0); HEMATOCRIT 37.3 % (36-46); HEMOGLOBIN 12.7 g/dL (12.0-16.0); LYMPHOCYTES # (AUTO) 2.7 K/uL (1.0-4.8); LYMPHOCYTES % (AUTO) 31.4 % (22.0-44.0); MEAN CORPUSCULAR HGB CONC 33.9 G/dL (31.0-37.0); MEAN CORPUSCULAR VOLUME 89 fL (80-100); MONOCYTES # (AUTO) 0.9 K/uL (0.1-1.0); MONOCYTES % (AUTO) 9.8 % (2.0-9.0); NEUTROPHILS # (AUTO) 4.8 K/uL (1.8-7.7); PLATELET COUNT (AUTO) 430 K/uL (150-450); RED BLOOD CELL COUNT(AUTO) 4.21 MIL/uL (4.00-5.20); RED CELL DISTRIBUTION WIDTH 13.3 % (11.5-14.5); WHITE BLOOD COUNT (AUTO) 8.8 K/uL (4.5-11.0)
[2024-02-10 01:13] LABS: ANION GAP 10 mmol/L (8-16); CALCIUM, TOTAL 8.4 mg/dL (8.8-10.5); CARBON DIOXIDE 26 mmol/L (22-29); CHLORIDE 105 mmol/L (98-107); CREATININE 0.95 mg/dL (0.60-1.30); GLOMERULAR FILTR. RATE CALC > 60 mL/min (>60); GLUCOSE,RANDOM 92 mg/dL (70-110); POTASSIUM 3.6 mmol/L (3.5-5.1); SODIUM SERUM 141 mmol/L (136-145); UREA NITROGEN, BLOOD 8 mg/dL (7-18)
[2024-02-10 01:33] LABS: ALBUMIN 3.1 g/dL (3.4-5.0); ALKALINE PHOSPHATASE 108 U/L (46-116); ASPARTATE AMINOTRANSFERASE 42 U/L (15-37); BILIRUBIN,TOTAL 0.3 mg/dL (0.1-1.0); LIPASE 57 U/L (16-77); TOTAL PROTEIN, SERUM 6.9 g/dL (6.4-8.2)
[2024-02-10 02:00] LABS: ALANINE AMINOTRANSFERASE 91 U/L (12-78); HCG,QUANTITATIVE < 1 mIU/mL (0-6)
[2024-02-10 05:14] LABS: APPEARANCE,URINE CLEAR (CLEAR); BILIRUBIN,URINE NEGATIVE (NEGATIVE); COLOR,URINE YELLOW (YELLOW); GLUCOSE, URINE (UA) NEGATIVE (NEGATIVE); KETONES,URINE NEGATIVE (NEGATIVE); LEUKOCYTE ESTERASE ,URINE NEGATIVE (NEGATIVE); NITRATE,URINE NEGATIVE (NEGATIVE); OCCULT BLOOD,URINE NEGATIVE (NEGATIVE); PROTEIN,URINE TRACE mg/dL (NEGATIVE); SPECIFIC GRAVITIY, URINE 1.029 (1.003-1.030)
[2024-02-10] MEDS: OLANZapine 10 MG TABLET PO ONE (08:27)
[2024-02-10] MEDS: LevETIRAcetam 500 MG TABLET PO ONE (08:27)
[2024-02-10] MEDS: VENLAFAXINE HCL 75 MG ER CAPSULE PO ONE (08:27)
[2024-02-10] MEDS: BENZTROPINE MESYLATE 2 MG TABLET PO ONE (08:28)
[2024-02-10] MEDS: OMEPRAZOLE 20 MG CAPSULE PO ONE (08:28)
[2024-02-10 09:01] LABS: COVID AG,FIA SOURCE NASAL SWAB
[2024-02-10 09:22] LABS: SARS-COV2 (COVID) ANTIGEN,FIA Negative (Negative)
[2024-02-10 11:30] VITALS: BP 111/63; PULSE 80; RESP 14; O2SAT 99
== END 2024-02-10 12:05 | disposition admitted as inpatient to this hospital (09) ==
LOC: EMS 21:21
DX: S61.511A Laceration without foreign body of right wrist, initial encounter (principal); F25.1 Schizoaffective disorder, depressive type; K80.20 Calculus of gallbladder without cholecystitis without obstruction; K76.0 Fatty (change of) liver, not elsewhere classified; K44.9 Diaphragmatic hernia without obstruction or gangrene; Z98.890 Other specified postprocedural states; Z88.0 Allergy status to penicillin; Z20.822 Contact with and (suspected) exposure to COVID-19; W26.8XXA Contact with other sharp object(s), not elsewhere classified, initial encounter; Y93.89 Activity, other specified; Y92.89 Other specified places as the place of occurrence of the external cause; Y99.8 Other external cause status
CPT/HCPCS: 74176; 76705; 80048; 80076; 81003; 83690; 84702; 84703; 85025; 99285

== ENCOUNTER 2024-06-02 16:22 | Inpatient (IN) | payer MEDICAID, OTHER ==
[~2024-06-02] VITALS: Ht 162.6 cm; Wt 113.4 kg
[2024-06-02 16:25] VITALS: O2SAT 97
[2024-06-02 17:02] LABS: COVID AG,FIA SOURCE NASAL SWAB
[2024-06-02 17:04] LABS: BASOPHILS % (AUTO) 0.3 % (0.0-2.0); HEMOGLOBIN 13.2 g/dL (12.0-16.0); LYMPHOCYTES # (AUTO) 1.9 K/uL (1.0-4.8); LYMPHOCYTES % (AUTO) 19.3 % (22.0-44.0); MEAN CORPUSCULAR HEMOGLOBIN 30.1 pg (26.0-34.0); MEAN CORPUSCULAR HGB CONC 33.7 G/dL (31.0-37.0); MEAN CORPUSCULAR VOLUME 89 fL (80-100); MONOCYTES # (AUTO) 0.9 K/uL (0.1-1.0); MONOCYTES % (AUTO) 9.3 % (2.0-9.0); NEUTROPHILS # (AUTO) 6.8 K/uL (1.8-7.7); NEUTROPHILS % (AUTO) 69.1 % (40.0-70.0); PLATELET COUNT (AUTO) 437 K/uL (150-450); RED BLOOD CELL COUNT(AUTO) 4.36 MIL/uL (4.00-5.20); RED CELL DISTRIBUTION WIDTH 13.1 % (11.5-14.5); WHITE BLOOD COUNT (AUTO) 9.8 K/uL (4.5-11.0)
[2024-06-02 17:14] LABS: ANION GAP 10 mmol/L (8-16); CALCIUM, TOTAL 8.7 mg/dL (8.8-10.5); CARBON DIOXIDE 27 mmol/L (22-29); CHLORIDE 107 mmol/L (98-107); CREATININE 1.06 mg/dL (0.60-1.30); GLOMERULAR FILTR. RATE CALC 58 mL/min (>60); GLUCOSE,RANDOM 90 mg/dL (70-110); POTASSIUM 3.5 mmol/L (3.5-5.1); SODIUM SERUM 144 mmol/L (136-145); UREA NITROGEN, BLOOD 8 mg/dL (7-18)
[2024-06-02 17:18] LABS: ALCOHOL, BLOOD (SERUM) < 3 mg/dL (0-10)
[2024-06-02 17:22] LABS: SARS-COV2 (COVID) ANTIGEN,FIA Negative (Negative)
[2024-06-02 17:25] LABS: TROPONIN I-HIGH SENSITIVITY Less Than 4 ng/L (<51)
[2024-06-02 19:03] LABS: PH,URINE DRUG SCREEN 6.5 (5.0-8.0)
[2024-06-02 19:14] LABS: ALCOHOL, URINE DRUG SCREEN NEGATIVE (NEGATIVE); AMPHET/METH SCREEN,URINE NEGATIVE (NEGATIVE); BARBITURATE SCREEN, URINE NEGATIVE (NEGATIVE); BENZODIAZEPINES SCREEN,URINE NEGATIVE (NEGATIVE); CANNABINOID SCREEN,URINE NEGATIVE (NEGATIVE); COCAINE SCREEN,URINE NEGATIVE (NEGATIVE); METHADONE SCREEN, URINE NEGATIVE (NEGATIVE); OPIATE SCREEN,URINE NEGATIVE (NEGATIVE); PHENCYCLIDINE SCREEN,URINE NEGATIVE (NEGATIVE)
[2024-06-02] MEDS ORDERED: LOPERAMIDE HCL 2 MG CAPSULE PO PRN (19:30)
[2024-06-02] MEDS ORDERED: MAG HYDROX/ALUMINUM HYD/SIMETH ES 30 ML SUSPENSION UDCUP PO PRN (19:30)
[2024-06-02] MEDS ORDERED: ACETAMINOPHEN 325 MG TABLET PO PRN (19:30)
[2024-06-02] MEDS ORDERED: ZOLPIDEM TARTRATE 10 MG TABLET PO PRN (19:30)
[2024-06-02] MEDS ORDERED: MAGNESIUM HYDROXIDE SUSPENSION 30 ML UDCUP PO PRN (19:30)
[2024-06-03 02:51] VITALS: BP 107/69; PULSE 78; RESP 16; TEMP 96.8; O2SAT 96
[2024-06-03 08:14] VITALS: BP 128/72; PULSE 76; RESP 18; TEMP 97; O2SAT 95
[2024-06-03] MEDS: LevETIRAcetam 500 MG TABLET PO SCH (10:02)
[2024-06-03] MEDS: OMEPRAZOLE 20 MG CAPSULE PO SCH (10:02)
[2024-06-03] MEDS ORDERED: MAGNESIUM HYDROXIDE SUSPENSION 30 ML UDCUP PO PRN (10:30)
[2024-06-03] MEDS ORDERED: IBUPROFEN 400 MG TABLET PO PRN (10:30)
[2024-06-03] MEDS ORDERED: ONDANSETRON 4 MG TABLET PO PRN (10:30)
[2024-06-03] MEDS ORDERED: ACETAMINOPHEN 325 MG TABLET PO PRN (10:30)
[2024-06-03] MEDS ORDERED: DOCUSATE SODIUM 100 MG CAPSULE PO PRN (10:30)
[2024-06-03] MEDS ORDERED: CloNIDine HCL 0.1 MG TABLET PO PRN (10:30)
[2024-06-03] MEDS ORDERED: LOPERAMIDE HCL 2 MG CAPSULE PO PRN (10:30)
[2024-06-03] MEDS ORDERED: PETROLATUM,WHITE 28 GM JELLY TP PRN (10:30)
[2024-06-03] MEDS ORDERED: ALBUTEROL SULFATE HFA 90 MCG/PUFF 8 GM INHALER IH PRN (10:30)
[2024-06-03] MEDS ORDERED: GuaiFENesin/D-METHORPHAN [SUGAR-FREE] 200-20MG/10 ML SYRUP UDCUP PO PRN (10:30)
[2024-06-03] MEDS ORDERED: NICOTINE 14 MG/24 HOUR PATCH TD PRN (10:30)
[2024-06-03 12:13] VITALS: BP 127/67; PULSE 95; RESP 17; TEMP 97; O2SAT 96
[2024-06-03] MEDS: LORazepam 2 MG TABLET PO PRN (12:15)
[2024-06-03] MEDS: VENLAFAXINE HCL 75 MG ER CAPSULE PO SCH (12:42)
[2024-06-03] MEDS: BENZTROPINE MESYLATE 0.5 MG TABLET PO SCH (12:42)
[2024-06-03] MEDS ORDERED: LevETIRAcetam 500 MG TABLET PO SCH (17:00)
[2024-06-03] MEDS: OLANZapine 10 MG TABLET PO SCH (20:09)
[2024-06-03 20:32] VITALS: RESP 18; O2SAT 97
[2024-06-03 20:34] VITALS: RESP 20; O2SAT 97
[2024-06-04 08:25] VITALS: BP 116/70; PULSE 87; RESP 17; TEMP 98; O2SAT 99
[2024-06-04] MEDS ORDERED: OMEPRAZOLE 20 MG CAPSULE PO SCH (09:00)
[2024-06-04 09:47] LABS: THYROID STIMULATING HORMONE 1.28 uIU/mL (0.36-3.74)
[2024-06-04 10:08] LABS: HEMOGLOBIN A1C 5.8 % (3.8-5.6)
[2024-06-04 10:28] LABS: CHOL/HDL RATIO 4.1 (3.9-5.7)
[2024-06-04] MEDS: HALOPERIDOL 5 MG TABLET PO PRN (17:04)
[2024-06-04 20:00] VITALS: BP 97/54; PULSE 97; RESP 16; TEMP 97.6; O2SAT 97
[2024-06-05 08:19] VITALS: BP 102/60; PULSE 84; RESP 16; TEMP 97.6; O2SAT 98
[2024-06-05 10:24] LABS: APPEARANCE,URINE CLEAR (CLEAR); BILIRUBIN,URINE NEGATIVE (NEGATIVE); COLOR,URINE LIGHT YELLOW (YELLOW); GLUCOSE, URINE (UA) NEGATIVE (NEGATIVE); KETONES,URINE NEGATIVE (NEGATIVE); LEUKOCYTE ESTERASE ,URINE NEGATIVE (NEGATIVE); NITRATE,URINE NEGATIVE (NEGATIVE); OCCULT BLOOD,URINE NEGATIVE (NEGATIVE); PROTEIN,URINE NEGATIVE (NEGATIVE); SPECIFIC GRAVITIY, URINE 1.018 (1.003-1.030); UROBILINOGEN,URINE <=1.0 mg/dL (<=1.0)
[2024-06-05 10:35] LABS: ALCOHOL, URINE DRUG SCREEN NEGATIVE (NEGATIVE); AMPHET/METH SCREEN,URINE NEGATIVE (NEGATIVE); BARBITURATE SCREEN, URINE NEGATIVE (NEGATIVE); BENZODIAZEPINES SCREEN,URINE NEGATIVE (NEGATIVE); CANNABINOID SCREEN,URINE NEGATIVE (NEGATIVE); COCAINE SCREEN,URINE NEGATIVE (NEGATIVE); METHADONE SCREEN, URINE NEGATIVE (NEGATIVE); OPIATE SCREEN,URINE NEGATIVE (NEGATIVE); PHENCYCLIDINE SCREEN,URINE NEGATIVE (NEGATIVE)
[2024-06-05 13:40] VITALS: BP 107/83; PULSE 76; RESP 16; TEMP 97.8; O2SAT 95
[2024-06-05] MEDS: MAG HYDROX/ALUMINUM HYD/SIMETH ES 30 ML SUSPENSION UDCUP PO PRN (15:29)
[2024-06-05 20:22] VITALS: BP 104/62; PULSE 83; RESP 16; TEMP 97.6; O2SAT 97
[2024-06-06 08:23] VITALS: BP 113/59; PULSE 86; RESP 17; TEMP 96.3; O2SAT 97
[2024-06-06 20:18] VITALS: RESP 16
[2024-06-07 08:12] VITALS: BP 115/62; PULSE 85; RESP 17; TEMP 98; O2SAT 95
== END 2024-06-07 13:10 | disposition home or self-care (01) | DRG 750 ==
LOC: EMS 16:22 → B2S 06-03 01:00
PROVIDERS: ADMIT Psychiatry & Neurology Psychiatry; ATTEND Psychiatry & Neurology Psychiatry
PROC: GZHZZZZ Group Psychotherapy (ICD-10-PCS; principal; 2024-06-03)
DX: F25.1 Schizoaffective disorder, depressive type (principal); G40.909 Epilepsy, unspecified, not intractable, without status epilepticus; R45.851 Suicidal ideations; F17.200 Nicotine dependence, unspecified, uncomplicated; K21.9 Gastro-esophageal reflux disease without esophagitis; Z20.822 Contact with and (suspected) exposure to COVID-19; Z79.899 Other long term (current) drug therapy; Z88.0 Allergy status to penicillin; Z91.51 Personal history of suicidal behavior
CPT/HCPCS: 80048; 80061; 80307; 81003; 83036; 83690; 84443; 84484; 84703; 85025; 93005; 99285; G0480

== ENCOUNTER 2025-01-24 17:00 | Emergency (ER) | payer MEDICAID, OTHER ==
[~2025-01-24] VITALS: Ht 162.6 cm; Wt 100.0 kg
[~2025-01-24 17:00] MED LIST changes: +BENZ-247 PO; -BENZ0.5T52 PO; +HALO5TAB23 PO; +LITH300T PO; +OMEP-148 PO; -OMEP20 PO; +TIRZ2.5P3 SQ
[2025-01-24 18:42] VITALS: TEMP 98.1
[2025-01-24 19:37] LABS: COVID AG,FIA SOURCE NASAL SWAB
[2025-01-24 19:51] LABS: PLATELET COUNT (AUTO) 465 K/uL (150-450); RED BLOOD CELL COUNT(AUTO) 4.62 MIL/uL (4.00-5.20); RED CELL DISTRIBUTION WIDTH 13.2 % (11.5-14.5); WHITE BLOOD COUNT (AUTO) 11.7 K/uL (4.5-11.0)
[2025-01-24 20:01] LABS: CALCIUM, TOTAL 9.3 mg/dL (8.8-10.5); CREATININE 0.97 mg/dL (0.60-1.30); GLOMERULAR FILTR. RATE CALC > 60 mL/min (>60); GLUCOSE,RANDOM 119 mg/dL (70-110); SODIUM SERUM 140 mmol/L (136-145); UREA NITROGEN, BLOOD 11 mg/dL (7-18)
[2025-01-24 20:04] LABS: SARS-COV2 (COVID) ANTIGEN,FIA Negative (Negative)
[2025-01-24 20:09] LABS: TROPONIN I-HIGH SENSITIVITY Less Than 4 ng/L (<51)
[2025-01-24 20:17] LABS: APPEARANCE,URINE CLEAR (CLEAR); GLUCOSE, URINE (UA) NEGATIVE (NEGATIVE); LEUKOCYTE ESTERASE ,URINE NEGATIVE (NEGATIVE); NITRATE,URINE NEGATIVE (NEGATIVE); OCCULT BLOOD,URINE NEGATIVE (NEGATIVE); PH,URINE DRUG SCREEN 5.5 (5.0-8.0); SPECIFIC GRAVITIY, URINE 1.013 (1.003-1.030)
[2025-01-24 20:27] LABS: SQUAMOUS EPITHELIAL CELL,UR Few /LPF (None Seen)
[2025-01-24 20:34] LABS: ALCOHOL, URINE DRUG SCREEN NEGATIVE (NEGATIVE); AMPHET/METH SCREEN,URINE NEGATIVE (NEGATIVE); BARBITURATE SCREEN, URINE NEGATIVE (NEGATIVE); CANNABINOID SCREEN,URINE NEGATIVE (NEGATIVE); COCAINE SCREEN,URINE NEGATIVE (NEGATIVE); METHADONE SCREEN, URINE NEGATIVE (NEGATIVE)
[2025-01-24 22:02] VITALS: BP 110/64; PULSE 90; RESP 16; O2SAT 96
== END 2025-01-24 22:11 | disposition short-term general hospital (02) ==
LOC: EMS 17:00
DX: F25.1 Schizoaffective disorder, depressive type (principal); R45.851 Suicidal ideations; F31.9 Bipolar disorder, unspecified; Z98.890 Other specified postprocedural states; Z88.0 Allergy status to penicillin; Z79.899 Other long term (current) drug therapy; Z87.891 Personal history of nicotine dependence; Z20.822 Contact with and (suspected) exposure to COVID-19
CPT/HCPCS: 99285; 71045; 87426; 80048; 81001; 84484; 84703; 85025; 36415; 93005; 80307; G0480